=== PATIENT | male | born 1960 | race Caucasian/White ===

== ENCOUNTER 2021-09-26 00:13 | Observation (INO) ==
--- NOTE | 2021-09-25 23:44 | ED Telehealth Note ---
Telehealth Telehealth Options: 2-way audio and video For the duration of the visit, provider was performing the assessment from: A different facility than the patient After establishing a telemedicine visit, patient was: Patient was verified with two unique identifiers and Gave permission to continue telehealth session Total Time Spent (minutes): 10 Impression & Plan Abdominal pain, Constipation The patient was offered outpatient treatment options to include magnesium citrate cleanout, enema, and MiraLAX. He notes his pain is pretty severe. I discussed with him the limitations of telehealth when evaluating abdominal pain. I advised him that to evaluate for obstruction, he would likely need CT imaging and labs. The patient states he will come to the emergency department for further evaluation. Note/Exam/Outcome Date of Service September 25, 2021 ED Telehealth Outcome Referred to ED for in person visit ED Visit Note This 60-year-old male patient with significant past medical history of IBS presents to the emergency department today via telehealth for evaluation of constipation. The patient reports some severe episodes of abdominal pain occurring every few minutes. He reports a sharp stabbing pain in the abdomen. The patient states he has not had a bowel movement since yesterday. He has also not passed gas. The patient has been able to tolerate p.o. foods and fluids throughout the day. He denies any fever. He has taken 3 doses of MiraLAX today without relief of his symptoms or having a bowel movement. He has not tried an enema. Patient denies any history of abdominal surgeries or bowel obstructions. General General: + awake, + alert and + ill appearing ENT ENT: + moist mucous membranes and + normal nose Respiratory Respiratory: + normal respiratory effort Muskuloskeletal Muskuloskeletal: + head normocephalic, atraumatic Neuro Neuro: + normal sensorium, + oriented x 3 and + speech normal Psych Psych: + appropriate, + normal mood and + normal affect Past Med/Surg History Medical History (Updated 09/26/21 @ 00:01 by Mercedez Josue PA-C) Irritable bowel syndrome Discharge Plan Visit Data Chief Complaint: Telehealth Stated Complaint: VERY INTENSE CONSTIPATION/ABD. PAIN ED Provider: [facility],ED ED Midlevel Provider: Mercedez Josue Discharge Problem: Abdominal pain, Constipation Patient Disposition: Still a Patient Discharge Instructions Activity Restrictions/Additional Instructions: Come to the ED for further evaluation of your symptoms in person Forms Stand Alone Forms: [facility] Referrals Referrals: Ne Salas [Primary Care Provider] - Discharge Problem: Abdominal pain Qualifiers: Abdominal location: generalized Qualified Code(s): R10.84 - Generalized abdominal pain Constipation Qualifiers: Constipation type: unspecified constipation type Qualified Code(s): K59.00 - Constipation, unspecified
--- NOTE | 2021-09-26 02:11 | Emergency Department Note ---
Impression & Plan Volvulus of sigmoid colon Admit to the [facility] hospitalist and to the OR with Dr. Yee ED Provider Note NAME: JACOB YEH Jr AGE: 60 SEX: M ARRIVES VIA: Walk-In INFORMANT: Patient and his ED PROVIDER(S): Chelsey Maciel DO CHIEF COMPLAINT: Abdominal pain PLAN: Disposition: Admit to the [facility] Condition: Stable MEDICAL DECISION MAKING: This is a 60-year-old male patient with a history of IBS who presents to the emergency department with intermittent abdominal pain and no bowel movement over the past 24 hours. The patient denies any nausea or vomiting but his episodes of abdominal pain are worsening. Obstruction series was concerning for a small bowel obstruction. The patient went on for CT scan of the abdomen/pelvis which confirmed a sigmoid volvulus. The patient will go to the OR with Dr. Yee for a definitive procedure. Triage Nursing notes reviewed and agree with them. Additional history obtained from who is at the bedside Prior medical records reviewed Vital Signs: reviewed and unremarkable Differential diagnosis: Small bowel obstruction, constipation, colitis, gastritis ER treatment provided: IV normal saline IV Zofran IV Dilaudid IV fentanyl Diagnostics interpreted by me: Cardiac Monitoring: Sinus bradycardia at 60 Laboratory studies: See below Imaging studies: Obstruction series: Multiple distended loops of large and small bowel with air-fluid levels concerning for a small bowel obstruction as per my interpretation As per stat rad CT abdomen pelvis with contrast: Findings compatible with sigmoid volvulus (collapsed distal rectosigmoid colon, oral sign and twisting of vessels and sigmoid colon more superiorly in the mid abdomen, image [id number] series 2, significant dilatation of more proximal sigmoid loop with air-fluid level). No evidence of bowel perforation. No signs of bowel ischemia such as pneumatosis intestinalis or portal venous gas. Stable partially exophytic splenic lesion measuring 3.5 cm transversely. Consultation(s): Dr. Yee-he will evaluate the patient for sigmoid volvulus HPI: 60/M arrives for evaluation of abdominal pain. Patient has had increasing abdominal pain over the past 36-48 hours. The patient wonders if he is constipated. The patient describes a history of previous episodes of constipation then diarrhea with his IBS. Patient states that when he does have episodes of abdominal pain they are quite intense. ROS: See above HPI for pertinent positives & negatives. A total of 10 systems reviewed and were otherwise negative. PAST MEDICAL HISTORY:See Below PAST SURGICAL HISTORY:See Below FAMILY HISTORY:See Below SOCIAL HISTORY:See Below HOME MEDICATIONS:See list ALLERGIES:None VITALS:See Below PHYSICAL EXAMINATION: HEENT: Head - normocephalic and atraumatic Pupils are equal, round, and reactive to light. Extraocular eye muscles are intact, and sclera are anicteric. Nose - moist nasal mucosa without discharge. Mouth - moist buccal mucosa. Oropharynx is nonerythematous and there is no tonsillar exudate or edema noted. Neck: Supple; no cervical lymphadenopathy or nuchal rigidity Heart: Regular rate and rhythm. There is a normal S1 and S2 with no murmurs, clicks, or gallops appreciated. Lungs: Clear to auscultation bilaterally with no wheezes, rales, or rhonchi. Abdomen: Soft, moderate tenderness to palpation in the mid abdomen and left lower quadrant. There are no palpable pulsatile masses or hepatosplenomegaly. There is no guarding, rigidity, or rebound noted. Extremities: No evidence of cyanosis, clubbing, or edema. There are easily palpable peripheral pulses. Skin: warm and dry with good turgor and no rashes. ED COURSE: Times/Reassessments: 0145: The patient was evaluated in room a 12. A complete history and physical was performed. An IV lock was initiated and labs are drawn as above. An order was placed for continuous cardiac monitoring. The patient was in a sinus bradycardia at a rate of 59. Patient was treated with IV normal saline solution, IV Dilaudid and IV Zofran. He had an obstruction series performed which was concerning for a bowel obstruct ion. He continued to complain of pain was given IV fentanyl. He then went on for a CT scan of the abdomen/pelvis. This revealed evidence of an acute sigmoid volvulus. Patient was placed on IV saline drip and I discussed the case with Dr. Yee. A Covid test was performed. I then discussed the case with Dr. Tripathi. Chelsey Maciel DO Past Med/Surg History Medical History Irritable bowel syndrome Social History Smoking Status: Never smoker Hx Alcohol Use: Yes Alcohol type: beer Hx Substance Use: No Preferred Language: Belarusian Communication Ability: Effective Educational Director Required: No Beliefs That Will Affect Care: None Current Living Situation: Spouse Feels Safe at Home: Yes Assistive Devices: None Allergies Allergies Allergy/AdvReac Type Severity Reaction Status Date / Time No Known Drug Allergies Allergy . Verified 09/27/21 00:27 Home Meds Home Medications Medication Instructions Recorded Confirmed polyethylene glycol 3350 17 17 g PO DAILY 09/26/21 09/26/21 gram/dose oral powder (Miralax) Results & Data (ED) Vital Signs Vital Signs - 24 hr 09/26/21 00:28 09/26/21 03:09 09/26/21 04:59 Temperature 36.6 C Temperature Source Temporal Artery Scan Pulse Rate 59 L Pulse Rate [Left Radial] 48 L 53 L Pulse Strength [Left Radial] Normal Normal Respiratory Rate 20 16 17 Respiratory Effort / Characteristics Non-Labored Non-Labored Respiratory Depth Normal Normal Respiratory Pattern Regular Regular Blood Pressure 143/66 H Blood Pressure [Right Arm] 133/76 138/78 Blood Pressure Mean 91 Blood Pressure Mean [Right Arm] 95 98 Blood Pressure Position [Right Arm] Lying Lying Pulse Oximetry 99 96 99 Oxygen Delivery Method Room Air Room Air Room Air Sepsis Recent Fever Within 48 Hours No Sepsis New/Unexplained Change in Mental Status N/A Sepsis Action Taken by Nursing No Action Required 09/26/21 06:00 Temperature Temperature Source Pulse Rate Pulse Rate [Left Radial] Pulse Strength [Left Radial] Respiratory Rate 50 H Respiratory Effort / Characteristics Non-Labored Respiratory Depth Normal Respiratory Pattern Regular Blood Pressure Blood Pressure [Right Arm] 151/90 H Blood Pressure Mean Blood Pressure Mean [Right Arm] 110 Blood Pressure Position [Right Arm] Lying Pulse Oximetry 99 Oxygen Delivery Method Room Air Sepsis Recent Fever Within 48 Hours Sepsis New/Unexplained Change in Mental Status Sepsis Action Taken by Nursing Laboratory Data Result diagrams: 09/27/21 06:06 09/26/21 02:07 Lab Results 09/26/21 09/26/21 09/26/21 Range/Units 02:07 02:07 02:48 WBC 8.53 (4.8-10.8) K/uL RBC 4.68 L (4.7-6.1) M/uL Hgb 15.4 (14.0-18.0) g/dL Hct 44.9 (42-52) % MCV 95.9 (80-100) fL MCH 32.9 (25-34) pg MCHC 34.3 (32-36) g/dL RDW Std Deviation 45.6 (36.4-46.3) fL RDW Coeff of Jeffery 13.1 (11.5-14.5) % Plt Count 217 (130-400) K/uL MPV 11.0 H (7.4-10.4) fL Immature Gran % (Auto) 0.2 % Neut % (Auto) 80.2 % Lymph % (Auto) 10.8 % [place] % (Auto) 8.2 % Eos % (Auto) 0.4 % Baso % (Auto) 0.2 % Neut # (Auto) 6.84 H (1.4-6.5) K/uL Lymph # (Auto) 0.92 L (1.2-3.4) K/uL [place] # (Auto) 0.70 H (0.11-0.59) K/uL Eos # (Auto) 0.03 (0-0.5) K/uL Baso # (Auto) 0.02 (0-0.2) K/uL Immature Gran # (Auto) 0.02 (0.00-0.02) K/uL Sodium 132 L (136-145) mmol/L Potassium 4.1 (3.5-5.1) mmol/L Chloride 101 (98-107) mmol/L Carbon Dioxide 26 (21-32) mmol/L Anion Gap 5.0 (3-11) BUN 16 (7-18) mg/dl Creatinine 0.90 (0.6-1.4) mg/dl Est Cr Clr Drug Dosing 82.5 ml/min Est GFR ( Amer) 108.0 ml/min Est GFR (Non-Af Amer) 93.2 ml/min BUN/Creatinine Ratio 17.3 (10-20) Glucose 114 H (70-99) mg/dl Calcium 9.3 (8.5-10.1) mg/dl Total Bilirubin 2.1 H (0.2-1) mg/dl AST 34 (15-37) U/L ALT 31 (12-78) U/L Alkaline Phosphatase 55 (45-117) U/L Total Protein 7.6 (6.4-8.2) gm/dl Albumin 4.0 (3.4-5.0) gm/dl Globulin 3.6 (2.5-4.0) gm/dl Albumin/Globulin Ratio 1.1 (0.9-2) Lipase 162 (73-393) U/L Urine Color Dark Yellow Urine Appearance Clear (Clear) Urine pH 5.5 (4.5-7.5) Ur Specific [place] 1.027 (1.000-1.030) Urine Protein Trace H (Negative) Urine Glucose (UA) Negative (Negative) Urine Ketones 2+ H (Negative) Urine Blood Negative (Negative) Urine Nitrite Negative (Negative) Urine Bilirubin Negative (Negative) Urine Urobilinogen Negative (Negative) Ur Leukocyte Esterase Negative (Negative) Urine WBC (Auto) 1-5 (0-5) /hpf Urine RBC (Auto) 0-4 (0-4) /hpf U Hyaline Cast (Auto) 1-5 (0-5) /lpf U Epithel Cells (Auto) 5-10 H (0-5) /lpf Urine Bacteria (Auto) Negative (Negative) SARS-CoV-2, RNA, NAAT (NEGATIVE) 09/26/21 Range/Units 05:57 WBC (4.8-10.8) K/uL RBC (4.7-6.1) M/uL Hgb (14.0-18.0) g/dL Hct (42-52) % MCV (80-100) fL MCH (25-34) pg MCHC (32-36) g/dL RDW Std Deviation (36.4-46.3) fL RDW Coeff of Jeffery (11.5-14.5) % Plt Count (130-400) K/uL MPV (7.4-10.4) fL Immature Gran % (Auto) % Neut % (Auto) % Lymph % (Auto) % [place] % (Auto) % Eos % (Auto) % Baso % (Auto) % Neut # (Auto) (1.4-6.5) K/uL Lymph # (Auto) (1.2-3.4) K/uL [place] # (Auto) (0.11-0.59) K/uL Eos # (Auto) (0-0.5) K/uL Baso # (Auto) (0-0.2) K/uL Immature Gran # (Auto) (0.00-0.02) K/uL Sodium (136-145) mmol/L Potassium (3.5-5.1) mmol/L Chloride (98-107) mmol/L Carbon Dioxide (21-32) mmol/L Anion Gap (3-11) BUN (7-18) mg/dl Creatinine (0.6-1.4) mg/dl Est Cr Clr Drug Dosing ml/min Est GFR ( Amer) ml/min Est GFR (Non-Af Amer) ml/min BUN/Creatinine Ratio (10-20) Glucose (70-99) mg/dl Calcium (8.5-10.1) mg/dl Total Bilirubin (0.2-1) mg/dl AST (15-37) U/L ALT (12-78) U/L Alkaline Phosphatase (45-117) U/L Total Protein (6.4-8.2) gm/dl Albumin (3.4-5.0) gm/dl Globulin (2.5-4.0) gm/dl Albumin/Globulin Ratio (0.9-2) Lipase (73-393) U/L Urine Color Urine Appearance (Clear) Urine pH (4.5-7.5) Ur Specific [place] (1.000-1.030) Urine Protein (Negative) Urine Glucose (UA) (Negative) Urine Ketones (Negative) Urine Blood (Negative) Urine Nitrite (Negative) Urine Bilirubin (Negative) Urine Urobilinogen (Negative) Ur Leukocyte Esterase (Negative) Urine WBC (Auto) (0-5) /hpf Urine RBC (Auto) (0-4) /hpf U Hyaline Cast (Auto) (0-5) /lpf U Epithel Cells (Auto) (0-5) /lpf Urine Bacteria (Auto) (Negative) SARS-CoV-2, RNA, NAAT NEGATIVE (NEGATIVE) Administered Medications Sodium Chloride (Nss) 500 mls @ 125 mls/hr IV .Q4H KATIA Stop: 10/26/21 05:59 Last Infusion: 09/27/21 01:11 Dose: 0 mls/hr Documented by: [id number] Admin: 09/26/21 21:11 Dose: 125 mls/hr Documented by: [id number] Infusion: 09/26/21 17:27 Dose: 125 mls/hr Documented by: [id number] Admin: 09/26/21 15:49 Dose: Not Given Documented by: [id number] Admin: 09/26/21 13:27 Dose: 125 mls/hr Documented by: [id number] Infusion: 09/26/21 12:18 Dose: 0 mls/hr Documented by: [id number] Admin: 09/26/21 06:08 Dose: 125 mls/hr Documented by: [id number] Famotidine 20 mg/ Syringe 5 mls @ 2.5 mls/min IV Q12H KATIA Stop: 10/26/21 08:59 Last Admin: 09/26/21 21:05 Dose: 2.5 mls/min Documented by: [id number] Admin: 09/26/21 13:27 Dose: 2.5 mls/min Documented by: [id number] Acetaminophen (Ofirmev) 1,000 mg in 100 mls @ 400 mls/hr IV Q8H PRN PRN Reason: Pain or Fever Stop: 09/29/21 08:56 Last Infusion: 09/27/21 00:51 Dose: 0 mls/hr Documented by: [id number] Admin: 09/27/21 00:31 Dose: 400 mls/hr Documented by: [id number] Piperacillin Sod/Tazobactam (Sod 3.375 gm/ Dextrose) 115 mls @ 28.75 mls/hr IV Q8H KATIA; Protocol Stop: 10/06/21 17:59 Last Admin: 09/27/21 03:07 Dose: 28.8 mls/hr Documented by: [id number] Infusion: 09/26/21 22:33 Dose: 0 mls/hr Documented by: [id number] Admin: 09/26/21 18:21 Dose: 28.8 mls/hr Documented by: [id number] Phenol (Chloraseptic 1.4% Soln 180 Ml Btl) 2 sprays MT BID PRN PRN Reason: throat pain Stop: 10/27/21 00:24 Last Admin: 09/27/21 03:07 Dose: 2 sprays Documented by: [id number] Discontinued Medications Famotidine (Famotidine 20mg/5ml Iv Push) Confirm Administered Dose 20 mg IV .STK-MED ONE Stop: 09/26/21 08:38 Last Admin: 09/26/21 08:38 Dose: 20 mg Documented by: [id number] Famotidine (Famotidine 20mg/5ml Iv Push) Confirm Administered Dose 20 mg IV .STK-MED ONE Stop: 09/26/21 12:50 Last Admin: 09/26/21 13:28 Dose: Not Given Documented by: [id number] Fentanyl Citrate (Fentanyl Citrate 100 Mcg/2 Ml Vial) 75 mcg IV NOW STA Stop: 09/26/21 05:57 Last Admin: 09/26/21 06:08 Dose: 75 mcg Documented by: [id number] Hydromorphone HCl (Hydromorphone Inj 0.5 Mg/0.5 Ml Syr) 0.5 mg IV NOW STA Stop: 09/26/21 03:27 Last Admin: 09/26/21 03:44 Dose: 0.5 mg Documented by: [id number] Hydromorphone HCl (Hydromorphone Inj 0.5 Mg/0.5 Ml Syr) 0.5 mg IV NOW STA Stop: 09/26/21 04:52 Last Admin: 09/26/21 04:56 Dose: 0.5 mg Documented by: [id number] Sodium Chloride (Nss 1000ml) 1,000 mls @ 999 mls/hr IV .Q1H1M ONE Stop: 09/26/21 05:19 Last Infusion: 09/26/21 05:31 Dose: 0 mls/hr Documented by: [id number] Admin: 09/26/21 04:22 Dose: 999 mls/hr Documented by: [id number] Piperacillin Sod/Tazobactam (Sod 4.5 gm/ Dextrose) 120 mls @ 230 mls/hr IV ONE ONE; Protocol Stop: 09/26/21 09:46 Last Infusion: 09/26/21 13:04 Dose: 0 mls/hr Documented by: [id number] Admin: 09/26/21 12:15 Dose: 230 mls/hr Documented by: [id number] Ioversol (Optiray 320 100ml) 97 ml IV ONCE ONE Stop: 09/26/21 03:46 Last Admin: 09/26/21 03:46 Dose: 97 ml Documented by: [id number] Mineral Oil (Mineral Oil 30 Ml Udc) Confirm Administered Dose 30 ml .ROUTE .STK- MED ONE Stop: 09/26/21 09:18 Last Admin: 09/26/21 11:41 Dose: Not Given Documented by: [id number] Morphine Sulfate (Morphine Sulfate 2 Mg/Ml Carp) Confirm Administered Dose 2 mg .ROUTE .STK-MED ONE Stop: 09/26/21 08:37 Last Admin: 09/26/21 08:38 Dose: 2 mg Documented by: [id number] Ondansetron HCl (Ondansetron Inj 2 Mg/Ml 2 Ml Vial) 4 mg IV NOW STA Stop: 09/26/21 03:27 Last Admin: 09/26/21 03:44 Dose: 4 mg Documented by: [id number] Discharge Plan Visit Data Chief Complaint: Constipation Stated Complaint: VERY INTENSE CONSTIPATION/ABD. PAIN ED Provider: Chelsey Maciel Discharge Problem: Volvulus of sigmoid colon Patient Disposition: Admitted As Inpatient Discharge Instructions Interventions: ED Discharge Assessment Last Done: 09/26/21 08:54
[2021-09-26 02:15] LABS: Basophils # (auto) 0.02 K/uL (0-0.2); Basophils % (auto) 0.2 %; Eosinophils # (auto) 0.03 K/uL (0-0.5); Eosinophils % (auto) 0.4 %; Hematocrit (blood only) 44.9 % (42-52); Hemoglobin 15.4 g/dL (14.0-18.0); Immature Granulocytes # (auto) 0.02 K/uL (0.00-0.02); Immature Granulocytes % (auto) 0.2 %; Lymphocytes # (auto) 0.92 K/uL (1.2-3.4); Lymphocytes % (auto) 10.8 %; Mean Corpuscular Hemoglobin 32.9 pg (25-34); Mean Corpuscular Hgb Conc 34.3 g/dL (32-36); Mean Corpuscular Volume 95.9 fL (80-100); Monocytes % (auto) 8.2 %; Neutrophils # (auto) 6.84 K/uL (1.4-6.5); Neutrophils % (auto) 80.2 %; Platelet Count 217 K/uL (130-400); RDW Coefficient of Variation 13.1 % (11.5-14.5); RDW Standard Deviation 45.6 fL (36.4-46.3); Red Blood Count 4.68 M/uL (4.7-6.1); White Blood Count 8.53 K/uL (4.8-10.8)
[2021-09-26 02:37] LABS: BUN Creatinine Ratio 17.3 (10-20); Calcium 9.3 mg/dl (8.5-10.1); Creatinine Clr Calc Pharmacy 82.5 ml/min; Est GFR (Non-African American) 93.2 ml/min; Potassium 4.1 mmol/L (3.5-5.1)
[2021-09-26 02:39] LABS: Albumin Globulin Ratio 1.1 (0.9-2); Bilirubin,Total 2.1 mg/dl (0.2-1); Globulin 3.6 gm/dl (2.5-4.0); Total Protein 7.6 gm/dl (6.4-8.2)
[2021-09-26 03:13] LABS: Appearance Urine Clear (Clear); Bacteria Urine Automated Negative (Negative); Bilirubin Urine Negative (Negative); Blood Urine Negative (Negative); Color Urine Dark Yellow; Glucose Urine UA Negative (Negative); Ketones Urine 2+ (Negative); Leukocyte Esterase Urine Negative (Negative); Nitrite Urine Negative (Negative); Protein Urine Trace (Negative); RBC Urine Automated 0-4 /hpf (0-4); Specific Gravity Urine 1.027 (1.000-1.030); Urobilinogen Urine Negative (Negative); pH Urine 5.5 (4.5-7.5)
[2021-09-26] MEDS ORDERED: ONDANSETRON INJ 2 MG/ML 2 ML VIAL IV STA (03:26)
[2021-09-26] MEDS ORDERED: HYDROmorphone INJ 0.5 MG/0.5 ML SYR IV STA ×2 (03:26→04:51)
[2021-09-26] MEDS ORDERED: OPTIRAY 320 100ml IV ONE (03:45)
[2021-09-26] MEDS ORDERED: SODIUM CHLORIDE 0.9% 1000ML 1,000 ML IV ONE (04:19)
[2021-09-26] MEDS ORDERED: fentaNYL citrate 100 MCG/2 ML VIAL IV STA (05:56)
[2021-09-26] MEDS: SODIUM CHLORIDE 0.9% 500 ML IV SCH ×4 (06:08→21:11)
--- NOTE | 2021-09-26 06:43 | History & Physical Report ---
Date of Service September 26, 2021 Assessment & Plan (1) Sigmoid volvulus: Plan: Sigmoid volvulus/severe abdominal pain- NPO Patient is being taken to the OR by gastroenterology Dr. Yee for decompression/detorsion Patient will be admitted to monitored bed post procedure Continue NSS at 125 mils per hour Zosyn 4.5 g IV every 8 hours Famotidine 20 mg IV every 12 hours Zofran 4 mg IV every 6 hours as needed Acetaminophen 1 g IV every 8 hours as needed mild pain or fever Morphine sulfate 2 mg IV every 3 hours as needed severe pain (2) Abdominal pain: Plan: See above History of Present Illness Chief Complaint: The patient presents to the emergency department with severe abdominal pain and nausea without vomiting, with no bowel movement over the past 24 hours Primary Care Provider: Ne Salas The patient is a 60-year-old male with no significant past medical history, who presents with symptoms as noted above. CT scan of abdomen pelvis: Sigmoid volvulus, no evidence of bowel perforation, bowel ischemia such as pneumatosis intestinalis, or portal venous gas Abnormal laboratories: Sodium 132, glucose 114, total bilirubin 2.1 Allergies Allergy/AdvReac Type Severity Reaction Status Date / Time SEASONAL Allergy Intermediate ITCHY Uncoded 09/26/21 02:10 EYES, SNEEZING, CONGESTION Home Medications Medication Instructions Recorded Confirmed Type polyethylene glycol 3350 17 17 g PO DAILY 09/26/21 09/26/21 History gram/dose oral powder (Miralax) Past Med/Surg History Medical History (Updated 09/26/21 @ 06:41 by Joe Armstrong MD) Irritable bowel syndrome Social History Smoking Status: Never smoker Feels Safe at Home: Yes Review of Systems Review of Systems: The patient denies chest pain, palpitations, shortness of breath, dyspnea on exertion, cough, lower extremity swelling, sore throat, fevers, chills, sweats, blood in urine or stool, dysuria, urinary frequency or urgency, lightheadedness, dizziness, headache, memory loss, loss of consciousness, rash, abnormal bruising or bleeding, imbalance, focal or generalized weakness, numbness or tingling in arms or legs, generalized arthralgias or myalgias, neck pain, or night sweats. The review of systems is otherwise negative other than for that already noted above, and at least 10 systems have been reviewed. Physical Exam Physical Exam: The patient is awake, alert and oriented 3, well developed and well nourished, normocephalic and atraumatic, lying in bed and in no acute distress after administration of IV pain medications HEENT--PERRL, EOMI, mucous membranes and oropharynx mildly dry. Neck--supple. No JVD. No bruits. Thyroid normal, trachea midline, no adenopathy. Heart--normal S1 and S2. No murmurs, rubs or gallops. Lungs--clear bilaterally, no respiratory distress, no accessory muscle use. Abdomen--decreased bowel sounds. Mildly firm. Nontender post IV pain medications. Mildly distended. Extremities--no cyanosis or clubbing. No edema. Dermatologic--normal skin turgor, normal color, no abnormal lymph nodes, no rash. Neurologic--cranial nerves II through XII grossly intact. Rheumatologic--normal range of motion. Psychiatric--normal affect. Results & Data Results & Data ([facility]) Vital Signs (Past 12 Hours) Vital Signs Temp Pulse Pulse Resp BP BP Pulse Ox 09/26/21 06:00 50 H 151/90 H 99 09/26/21 04:59 53 L 17 138/78 99 09/26/21 03:09 48 L 16 133/76 96 09/26/21 00:28 97.9 F 59 L 20 143/66 H 99 Laboratory Results Laboratory Results WBC 8.53 K/uL (4.8-10.8) 09/26/21 02:07 RBC 4.68 M/uL (4.7-6.1) L 09/26/21 02:07 Hgb 15.4 g/dL (14.0-18.0) 09/26/21 02:07 Hct 44.9 % (42-52) 09/26/21 02:07 MCV 95.9 fL (80-100) 09/26/21 02:07 MCH 32.9 pg (25-34) 09/26/21 02:07 MCHC 34.3 g/dL (32-36) 09/26/21 02:07 RDW Std Deviation 45.6 fL (36.4-46.3) 09/26/21 02:07 RDW Coeff of Jeffery 13.1 % (11.5-14.5) 09/26/21 02:07 Plt Count 217 K/uL (130-400) 09/26/21 02:07 MPV 11.0 fL (7.4-10.4) H 09/26/21 02:07 Immature Gran % (Auto) 0.2 % 09/26/21 02:07 Neut % (Auto) 80.2 % 09/26/21 02:07 Lymph % (Auto) 10.8 % 09/26/21 02:07 [place] % (Auto) 8.2 % 09/26/21 02:07 Eos % (Auto) 0.4 % 09/26/21 02:07 Baso % (Auto) 0.2 % 09/26/21 02:07 Neut # (Auto) 6.84 K/uL (1.4-6.5) H 09/26/21 02:07 Lymph # (Auto) 0.92 K/uL (1.2-3.4) L 09/26/21 02:07 [place] # (Auto) 0.70 K/uL (0.11-0.59) H 09/26/21 02:07 Eos # (Auto) 0.03 K/uL (0-0.5) 09/26/21 02:07 Baso # (Auto) 0.02 K/uL (0-0.2) 09/26/21 02:07 Immature Gran # (Auto) 0.02 K/uL (0.00-0.02) 09/26/21 02:07 Sodium 132 mmol/L (136-145) L 09/26/21 02:07 Potassium 4.1 mmol/L (3.5-5.1) 09/26/21 02:07 Chloride 101 mmol/L (98-107) 09/26/21 02:07 Carbon Dioxide 26 mmol/L (21-32) 09/26/21 02:07 Anion Gap 5.0 (3-11) 09/26/21 02:07 BUN 16 mg/dl (7-18) 09/26/21 02:07 Creatinine 0.90 mg/dl (0.6-1.4) 09/26/21 02:07 Est Cr Clr Drug Dosing 82.5 ml/min 09/26/21 02:07 Est GFR ( Amer) 108.0 ml/min 09/26/21 02:07 Est GFR (Non-Af Amer) 93.2 ml/min 09/26/21 02:07 BUN/Creatinine Ratio 17.3 (10-20) 09/26/21 02:07 Glucose 114 mg/dl (70-99) H 09/26/21 02:07 Calcium 9.3 mg/dl (8.5-10.1) 09/26/21 02:07 Total Bilirubin 2.1 mg/dl (0.2-1) H 09/26/21 02:07 AST 34 U/L (15-37) 09/26/21 02:07 ALT 31 U/L (12-78) 09/26/21 02:07 Alkaline Phosphatase 55 U/L (45-117) 09/26/21 02:07 Total Protein 7.6 gm/dl (6.4-8.2) 09/26/21 02:07 Albumin 4.0 gm/dl (3.4-5.0) 09/26/21 02:07 Globulin 3.6 gm/dl (2.5-4.0) 09/26/21 02:07 Albumin/Globulin Ratio 1.1 (0.9-2) 09/26/21 02:07 Lipase 162 U/L (73-393) 09/26/21 02:07 Urine Color Dark Yellow 09/26/21 02:48 Urine Appearance Clear (Clear) 09/26/21 02:48 Urine pH 5.5 (4.5-7.5) 09/26/21 02:48 Ur Specific [place] 1.027 (1.000-1.030) 09/26/21 02:48 Urine Protein Trace (Negative) H 09/26/21 02:48 Urine Glucose (UA) Negative (Negative) 09/26/21 02:48 Urine Ketones 2+ (Negative) H 09/26/21 02:48 Urine Blood Negative (Negative) 09/26/21 02:48 Urine Nitrite Negative (Negative) 09/26/21 02:48 Urine Bilirubin Negative (Negative) 09/26/21 02:48 Urine Urobilinogen Negative (Negative) 09/26/21 02:48 Ur Leukocyte Esterase Negative (Negative) 09/26/21 02:48 Urine WBC (Auto) 1-5 /hpf (0-5) 09/26/21 02:48 Urine RBC (Auto) 0-4 /hpf (0-4) 09/26/21 02:48 U Hyaline Cast (Auto) 1-5 /lpf (0-5) 09/26/21 02:48 U Epithel Cells (Auto) 5-10 /lpf (0-5) H 09/26/21 02:48 Urine Bacteria (Auto) Negative (Negative) 09/26/21 02:48 Diagnostic Findings [facility] Patient: JACOB YEH JR (Male) : 62 Status: ER Date: 09/26/21 03:58 Room #: History: PT. REPORTS ABDOMINAL PAIN, FEELS VERY FULL, ABDOMINAL DISTENSION APPENDIX PRESENT OPTI 320 [id number] CC Slices: [phone] Priors: Tech: Shanique Ballard @ [phone] Exams: CT ABDOMEN & PELVIS With Contrast Contrast: IV Amt: OPTIRAY 320 [id number] CC Accession Numbers: [id number] Referring Physician: REFERRED SELF Preliminary Findings Only See Final Report For Complete Findings CT ABDOMEN & PELVIS With Contrast: Findings compatible with sigmoid volvulus (collapsed distal rectosigmoid colon, whirl sign and twisting of vessels and sigmoid colon more superiorly in mid abdomen, image [id number] series 2, significant dilatation of more proximal sigmoid loop with air-fluid level). No evidence of bowel perforation. No signs of bowel ischemia such as pneumatosis intestinalis or portal venous gas. Stable partially exophytic splenic lesion measuring 3.5 cm transversely. Radiologist: Marcy Shukla M.D. Study ready at 04:08 and initial results transmitted at 05:36 Communications: Clear Time Type Notes 09/26/21 05:39 Call Doctor Regarding Vol vulus, called Dr. Maciel on 09/26 05:38 (-05:00) *This report constitutes a preliminary interpretation only. Non-acute findin gs felt to be unrelated to the clinical presentation may not be discussed in this report. The study will be interpreted and a final report will be generated by the local Radiologist the following shift. To reach the [facility] radiology department call [phone]. If a discrepancy is found between the preliminary and final interpretations of this study, please notify us via our Client Portal at [email or web address], under QA [email or web address]. You can also fax this report with a description of the discrepancy, or include the final report, to our daytime fax number [phone]. If faxing, please indicate the severity of discrepancy using one of the following categories: [ ] 1 - Agree/Informational [ ] 2 - Unlikely to Affect Management [ ] 3 - Possible Eventual Change of Management [ ] 4 - Probable Immediate Change of Management For all other patient related information, please fax us at [phone]. [id number] Code Status & VTE Plan Code Status Full code VTE Prophylaxis Plan VTE Prophylaxis will be ordered: Yes PG Care Time/CCT Total # of Minutes Spent Total Time Spent with Patient: Total time spent is greater than 50% in coordination of care (as documented) at patient's floor/unit and/or counseling patient: Coding Level of Care Code INT OBSERVATION CARE 70M LVL 3 Diagnoses Sigmoid volvulus K56.2 Abdominal pain R10.84 Abdominal location: generalized (1) Abdominal pain Abdominal location: generalized Qualified Code(s): R10.84 - Generalized abdominal pain
--- NOTE | 2021-09-26 07:58 | Anesthesiology Consultation ---
Date of Service September 26, 2021 Assessment & Plan (1) Encounter for pre-operative examination: Chart Review Chart Review: Acceptable Risk for Surgery and Patient NOT seen in Pre Admission Testing Consults Requested none History Surgery Operation Date: 09/26/21 09:00 Proposed Procedures p Colonoscopy - Franck Yee MD Height/Weight Height: 5 ft 9 in Weight: 66 kg Allergies Allergy/AdvReac Type Severity Reaction Status Date / Time SEASONAL Allergy Intermediate ITCHY Uncoded 09/26/21 02:10 EYES, SNEEZING, CONGESTION Medications Home Medications Medication Instructions Recorded Confirmed Last Taken polyethylene glycol 3350 17 17 g PO DAILY 09/26/21 09/26/21 09/25/21 gram/dose oral powder (Miralax) Active Medications Generic Name Dose Route Start Last Admin Trade Name Freq PRN Reason Stop Dose Admin Sodium Chloride 500 mls @ 125 mls/hr 09/26/21 06:00 09/26/21 06:08 Nss IV 10/26/21 05:59 125 mls/hr .Q4H KATIA Administration Past Medical History Medical History Irritable bowel syndrome Social History Smoking Status: Never smoker Physical Exam Vital Signs Last Vital Signs Temp 97.9 F 09/26/21 00:28 Pulse 53 L 09/26/21 04:59 Resp 50 H 09/26/21 06:00 BP 151/90 H 09/26/21 06:00 Pulse Ox 99 09/26/21 06:00 Testing Laboratory Results 09/26/21 02:07 09/26/21 02:07 Urine Color Dark Yellow 09/26/21 02:48 Urine Appearance Clear (Clear) 09/26/21 02:48 Urine pH 5.5 (4.5-7.5) 09/26/21 02:48 Ur Specific [place] 1.027 (1.000-1.030) 09/26/21 02:48 Urine Protein Trace (Negative) H 09/26/21 02:48 Urine Glucose (UA) Negative (Negative) 09/26/21 02:48 Urine Ketones 2+ (Negative) H 09/26/21 02:48 Urine Nitrite Negative (Negative) 09/26/21 02:48 Ur Leukocyte Esterase Negative (Negative) 09/26/21 02:48 Urine WBC (Auto) 1-5 /hpf (0-5) 09/26/21 02:48 Urine RBC (Auto) 0-4 /hpf (0-4) 09/26/21 02:48 U Hyaline Cast (Auto) 1-5 /lpf (0-5) 09/26/21 02:48 U Epithel Cells (Auto) 5-10 /lpf (0-5) H 09/26/21 02:48 Urine Bacteria (Auto) Negative (Negative) 09/26/21 02:48
[2021-09-26] MEDS ORDERED: MoRPHine SULFATE 2 MG/ML CARP ONE (08:36)
[2021-09-26] MEDS ORDERED: FAMOTIDINE 20MG/5ML IV PUSH IV ONE ×2 (08:37→12:49)
--- NOTE | 2021-09-26 08:45 | XRay Report ---
XR abdomen 2V w PA chest CLINICAL HISTORY: eval for sbo vs. constipation TECHNIQUE: 2 views of the abdomen were obtained. A single view of the chest was obtained. Comparison: None available at the time of this dictation. FINDINGS: No lines and tubes are seen. The cardiomediastinal silhouette is normal. The lungs are clear. No evid ence of pleural effusion or pneumothorax. The osseous structures are grossly unremarkable. Multiple gas-distended loops of large and small angel l are seen. A moderate amount of stool is noted within the large bowel. IMPRESSION: Multiple gas-distended loops of large and small bowel are seen compatible with small bowel obstructio n. ACT 112: Negative or not required by law. Electronically signed by: Giucho Theodore M.D. 09/26/2021 8:44 AM
--- NOTE | 2021-09-26 08:52 | Gastrointestinal Consultation ---
Date of Consultation September 26, 2021 Assessment & Plan (1) Sigmoid volvulus: (2) Constipation: sigmoid volvulus first episode recs: --NPO --colonoscopy with decompression now --admit to medicine --supportive care Thank you for allowing me to participate in the care of this patient History of Present Illness History of Present Illness 60 yo male who presented with severe abdominal pains and nausea. CT A/P shows sigmoid volvulus. He has a hx constipation, with moderate-severe fecal retention on previous CT in November. He has not had a bowel movement in the last day. No prior volvulus. labs reviewed. Allergies Allergy/AdvReac Type Severity Reaction Status Date / Time SEASONAL Allergy Intermediate ITCHY Uncoded 09/26/21 02:10 EYES, SNEEZING, CONGESTION Home Medications Medication Instructions Recorded Confirmed Type polyethylene glycol 3350 17 17 g PO DAILY 09/26/21 09/26/21 History gram/dose oral powder (Miralax) Patient History Medical History Irritable bowel syndrome Social History Smoking Status: Never smoker Feels Safe at Home: Yes Review of Systems Constitutional: no fever, no chills and no weight loss Eyes: as per Subjective / HPI Ear, Nose, Mouth, Throat: as per Subjective / HPI Respiratory: no dyspnea and no dyspnea on exertion Cardiovascular: no chest pain and no palpitations Gastrointestinal: as per Subjective / HPI Musculoskeletal: no joint pain and no swelling Integumentary: no rash and no lesions Neurologic: no numbness and no paresthesia Psychiatric: no depression and no anxiety Endocrine: no fatigue Hematologic / Lymphatic: no easy bleeding and no easy bruising Physical Exam Constitutional: WD/WN, vitals as above Eyes: EOM intact bilaterally Neck: normal visual inspection Respiratory: normal respiratory effort, lungs clear to auscultation Cardiovascular: RRR, no murmur, no edema Gastrointestinal (Abdomen): Inspection/Auscultation: abdomen normal to inspection; abdomen not distended Percussion/Palpation: abdomen soft; abdomen nontender and no hepatosplenomegaly Musculoskeletal: Extremities: no cyanosis Gait: normal gait Skin: no rashes, warm and dry Neurologic: moves all extremities Psychiatric: A+Ox3, euthymic affect Results & Data ([facility]) Vital Signs (Past 12 Hours) Vital Signs Temp Pulse Pulse Resp BP BP Pulse Ox 09/26/21 08:30 36.6 C 56 L 18 128/74 96 09/26/21 06:00 50 H 151/90 H 99 09/26/21 04:59 53 L 17 138/78 99 09/26/21 03:09 48 L 16 133/76 96 09/26/21 00:28 36.6 C 59 L 20 143/66 H 99 PG Care Time/CCT Total # of Minutes Spent Total Time Spent with Patient: Total time spent is greater than 50% in coordination of care (as documented) at patient's floor/unit and/or counseling patient: Coding Level of Care Code 85996 Inpt Consult Level 4 Diagnoses Sigmoid volvulus K56.2 Constipation K59.00 Constipation type: unspecified constipation type (1) Constipation Constipation type: unspecified constipation type Qualified Code(s): K59.00 - Constipation, unspecified
--- NOTE | 2021-09-26 08:52 | CT Scan Report ---
CT abd pelvis IV con only CLINICAL HISTORY: eval for sbo vs. volvulus TECHNIQUE: Helical axial images of the abdomen and pelvis were obtained and displayed. Automated dose lowering techniques and/or adjustment according to patient size were utilized for this exam. This e xam was performed with intravenous contrast. COMPARISON: Comparison is made to CT abdomen pelvis 11/20/2020 FINDINGS: Lower chest: No acute abnormality Liver: Unremarkable. No focal lesions are seen. Gallbladder and biliary tree: No calcified gallstones. Normal caliber wall. No intra- or extrahepatic biliary ductal dilation. Pancreas: Unremarkable, no focal lesions. Spleen: Stable appearance of splenic lesion which may represent hemangioma. Adrenals: Unremarkable. Kidneys and ureters: Unremarkable. Bladder: Unremarkable. Reproductive organs: Unremarkable. Bowel: There is twisting of the mesentery about the sigmoid colon. A vascular swirl is seen in the re gion of obstruction There is massive dilation of the distal colon and prominence of multiple distal s mall bowel loops. No evidence of perforation or ischemia. Lymph nodes Retroperitoneal: Unremarkable. Mesenteric: Unremarkable. Pelvic: Unremarkable. Peritoneum: Normal Vessels: Atherosclerotic calcifications are seen. Abdominal wall: Unremarkable. Bones: Unremarkable. IMPRESSION: 1. Findings are compatible with sigmoid volvulus. No evidence of perforation or ischemia. 2. Additional findings as above. ACT 112: Negative or not required by law. Electronically signed by: Guicho Theodore M.D. 09/26/2021 8:51 AM
[2021-09-26] MEDS ORDERED: SUCCINYLCHOLINE 100MG/5ML SYR IV ONE (08:55)
[2021-09-26] MEDS ORDERED: PROPOFOL IV EMULSION 10 MG/ML 20 ML VIAL IV ONE (08:55)
[2021-09-26] MEDS ORDERED: MIDAZOLAM HCL 1 MG/ML 2ML VIAL ONE (08:55)
[2021-09-26] MEDS ORDERED: fentaNYL citrate 100 MCG/2 ML VIAL ONE (08:55)
[2021-09-26] MEDS ORDERED: LIDOCAINE 2% 2 ML VIAL/AMP(20MG/ML) INFIL ONE (08:55)
[2021-09-26] MEDS ORDERED: PIPERACILL/TAZOBAC CONSULT ACTIVE PRN (08:57)
[2021-09-26] MEDS ORDERED: ACETAMINOPHEN 1,000 MG/100 ML VIAL IV PRN (08:57)
[2021-09-26] MEDS ORDERED: ONDANSETRON INJ 2 MG/ML 2 ML VIAL IV PRN (08:57)
[2021-09-26] MEDS ORDERED: MoRPHine SULFATE 2 MG/ML CARP IV PRN (09:07)
[2021-09-26] MEDS ORDERED: PROMETHAZINE HCL 6.25 MG in SODIUM CHLORIDE 0.9% 50 ML IV PRN (09:08)
[2021-09-26] MEDS ORDERED: ATROPINE SULFATE 0.1 MG/ML 10ML SYR IV PRN (09:08)
[2021-09-26] MEDS ORDERED: ePHEDrine sulfate 50 MG/ML AMP IV PRN (09:08)
[2021-09-26] MEDS ORDERED: PIPERACILLIN/TAZOBACTAM 4.5 GM in DEXTROSE 5% 100 ML IV ONE (09:15)
[2021-09-26] MEDS ORDERED: MINERAL OIL 30 ML UDC ONE (09:17)
[2021-09-26] MEDS ORDERED: ONDANSETRON INJ 2 MG/ML 2 ML VIAL ONE (09:33)
[2021-09-26] MEDS ORDERED: DEXAMETHASONE SOD INJ 4 MG/ML VIAL ONE (09:33)
[2021-09-26] MEDS ORDERED: ePHEDrine sulfate 50 MG/ML SYR ONE (09:35)
--- NOTE | 2021-09-26 10:03 | Procedure Note ---
Procedure Note Date of Service September 26, 2021 Note GI procedure note colonoscopy: sigmoid volvulus noted, decompressed; colonic tube inserted with the wire in the cecum recs: NPO keep tube in for 24 hours then remove KUB now to ensure volvulus has resolved supportive care, admit to medicine Franck Yee MD Gastroenterology Coding
--- NOTE | 2021-09-26 10:04 | Hospitalist Progress Note ---
Date of Service September 26, 2021 Assessment & Plan (1) Sigmoid volvulus: Plan: Patient presented acutely with 1st episode of sigmoid volvulus taken to the endoscopy suite for colonic decompression, is on antibiotics for concern for sterile coral colitis Mildly hyponatremic will be followed post procedure, GI medicine recommends KUB 09/28/21 and if vomiting to have NGT as there was some suggestion of air in small bowel Admission and Anticipated Discharge Date Admission Date: September 26, 2021 Subjective pt was seen post procedure was doing well with no abdominal pain and rectal tube in place, Review of Systems Review of Systems: Mild distress and fatigue no headache, no visual changes no speech or swallowing issues no chest pain, pressure or palpitations no shortness of breath, cough or wheezes no abdominal pain, nausea or vomiting, diarrhea or constipation no dysuria, hematuria or frequency no focal joint pain or swelling no back pain, CVA tenderness or radicular pain no bruising, bleeding or rashes no focal signs of weakness or numbness or altered sensation no complaints of anxiety or depression.. Physical Exam Physical Exam: The patient appeared well nourished and normally developed. Vital signs as documented. Head exam is normocephalic atraumatic Neck is without JVD, thyromegaly, or carotid bruits. Lungs are clear to auscultation, no focal loss of breath sounds Cardiac exam, Rhythm is regular.. No murmurs, rubs or gallops. Abdominal exam reveals hypoactive bowel sounds, soft non tender, no masses Extremities are nonedematous and both pedal pulses are present Neurologic exam is alert and oriented, no focal loss of strength or sensation Skin is without bruises or rashes Psychologically is without concerns for anxiety or depression.. Results & Data Results & Data ([facility]) Vital Signs (Past 12 Hours) Vital Signs Temp Pulse Pulse Resp BP BP Pulse Ox 09/26/21 08:30 97.9 F 56 L 18 128/74 96 09/26/21 06:00 50 H 151/90 H 99 09/26/21 04:59 53 L 17 138/78 99 09/26/21 03:09 48 L 16 133/76 96 09/26/21 00:28 97.9 F 59 L 20 143/66 H 99 PG Care Time/CCT Total # of Minutes Spent Total Time Spent with Patient: Total time spent is greater than 50% in coordination of care (as documented) at patient's floor/unit and/or counseling patient: Coding Level of Care Code None Diagnoses Sigmoid volvulus K56.2
--- NOTE | 2021-09-26 10:13 | GI REPORT ---
Patient Name: Gerald Del Cid Procedure Date: 09/26/2021 9:04 AM Date of : 1960 Admit Type: Inpatient Age: 60 Gender: Male Attending MD: Franck Yee MD Procedure: Colonoscopy Providers: Franck Yee MD Referring MD: Referred Self Indications: Volvulus Medicines: Monitored Anesthesia Care Complications: No immediate complications. Estimated blood loss: None. Estimated Blood Loss: Estimated blood loss: none. Procedure: Pre-Anesthesia Assessment: - Prior Anticoagulants: The patient has taken no previous anticoagulant or antiplatelet agents. - ASA Grade Assessment: II - A patient with mild systemic disease. After I obtained informed consent, the scope was passed under direct vision. Throughout the procedure, the patient's blood pressure, pulse, and oxygen saturations were monitored continuously. The Colonoscope was introduced through the anus and advanced to the cecum, identified by appendiceal orifice and ileocecal valve. The colonoscopy was performed without difficulty. The patient tolerated the procedure well. The quality of the bowel preparation was poor. Findings: A volvulus with viable appearing mucosa was found in the sigmoid colon. Decompression of the volvulus was attempted and was successful, with complete decompression achieved. Following the maneuver, a tube was placed to maintain the decompression. Estimated blood loss: none. Non-bleeding internal hemorrhoids were found. The hemorrhoids were small. Impression: - Preparation of the colon was poor. - Volvulus. Successful complete decompression achieved. - Non-bleeding internal hemorrhoids. - No specimens collected. Recommendation: - Admit the patient to hospital [facility] for ongoing care. - NPO -remove tube after 24 hours -KUB now to ensure volvulus resolving/resolved -supportive care Franck Yee MD 09/26/2021 10:13:23 AM This report has been signed electronically. Note Initiated On: 09/26/2021 9:04 AM Number of Addenda: 0 I attest to the content of the Intraoperative Record and orders documented therein, exceptions below {[id number]}
--- NOTE | 2021-09-26 10:28 | XRay Report ---
XR KUB/Abdomen 1 view CLINICAL HISTORY: volvulus s/p decompression and tube placement TECHNIQUE: 1 view of the abdomen was obtained. Comparison: None available at the time of this dictation. FINDINGS: Lung bases are unremarkable. The osseous structures are grossly unremarkable. Significant interval de crease in large bowel gas, with significant residual large and small bowel gaseous distention. A mode rate amount of stool is noted within the large bowel. IMPRESSION: Interval significant improvement in large bowel gas with however significant residual gas distended l oops of large and small bowel. ACT 112: Negative or not required by law. Electronically signed by: Guicho Theodore M.D. 09/26/2021 10:27 AM
--- NOTE | 2021-09-26 10:34 | Anesthesiology Progress Note ---
Date of Service September 26, 2021 Anesthesia Post Procedure Vital Signs Vital Signs: Temp Pulse Pulse Pulse Resp BP BP 09/26/21 10:04 97.3 F L 85 18 138/80 09/26/21 08:30 97.9 F 56 L 18 128/74 09/26/21 06:00 50 H 151/90 H 09/26/21 04:59 53 L 17 138/78 09/26/21 03:09 48 L 16 133/76 09/26/21 00:28 97.9 F 59 L 20 143/66 H Pulse Ox 09/26/21 10:04 100 09/26/21 08:30 96 09/26/21 06:00 99 09/26/21 04:59 99 09/26/21 03:09 96 09/26/21 00:28 99 Pain Intensity Abdomen: Pain Intensity: 2 Transfer of Care Handoff Completed per policy Notes Mental Status: alert / awake / arousable and participated in evaluation Patient Amnestic to Procedure: Yes Nausea / Vomiting: adequately controlled Pain: adequately controlled Airway Patency, RR, SpO2: stable & adequate BP & HR: stable & adequate Hydration State: stable & adequate Anesthetic Complications: no major complications apparent and Pt Satisfied with anesthetic care
[2021-09-26] MEDS: FAMOTIDINE 20 MG in SYRINGE 3 ML IV SCH ×2 (13:27→21:05)
[2021-09-26] MEDS ORDERED: PIPERACILLIN/TAZOBACTAM 4.5 GM in DEXTROSE 5% 100 ML IV SCH (18:00)
[2021-09-26] MEDS: PIPERACILLIN/TAZOBACTAM 3.375 GM in DEXTROSE 5% 100 ML IV SCH (18:21)
[2021-09-27] MEDS ORDERED: CHLORASEPTIC 1.4% SOLN 180 ML BTL MT PRN (00:25)
[2021-09-27] MEDS: PIPERACILLIN/TAZOBACTAM 3.375 GM in DEXTROSE 5% 100 ML IV SCH ×2 (03:07→11:01)
[2021-09-27 07:23] LABS: Basophils # (auto) 0.03 K/uL (0-0.2); Basophils % (auto) 0.4 %; Eosinophils # (auto) 0.09 K/uL (0-0.5); Eosinophils % (auto) 1.3 %; Hematocrit (blood only) 39.9 % (42-52); Hemoglobin 13.5 g/dL (14.0-18.0); Lymphocytes # (auto) 1.35 K/uL (1.2-3.4); Lymphocytes % (auto) 18.8 %; Mean Corpuscular Hemoglobin 33.3 pg (25-34); Mean Corpuscular Hgb Conc 33.8 g/dL (32-36); Mean Corpuscular Volume 98.3 fL (80-100); Mean Platelet Volume 11.3 fL (7.4-10.4); Monocytes # (auto) 0.79 K/uL (0.11-0.59); Neutrophils # (auto) 4.92 K/uL (1.4-6.5); Neutrophils % (auto) 68.5 %; Platelet Count 187 K/uL (130-400); RDW Coefficient of Variation 13.5 % (11.5-14.5); RDW Standard Deviation 48.5 fL (36.4-46.3); Red Blood Count 4.06 M/uL (4.7-6.1); White Blood Count 7.18 K/uL (4.8-10.8)
[2021-09-27 07:56] LABS: Albumin Level 2.9 gm/dl (3.4-5.0); BUN Creatinine Ratio 13.3 (10-20); Calcium 8.1 mg/dl (8.5-10.1); Creatinine Clr Calc Pharmacy 78.9 ml/min; Est GFR (African American) 99.9 ml/min; Est GFR (Non-African American) 86.2 ml/min; Potassium 3.7 mmol/L (3.5-5.1)
[2021-09-27 08:00] LABS: Bilirubin,Total 2.3 mg/dl (0.2-1); Total Protein 5.9 gm/dl (6.4-8.2)
[2021-09-27] MEDS ORDERED: Nursing to Pharmacy Communication SCH (08:00)
[2021-09-27] MEDS ORDERED: SODIUM CHLORIDE 0.9% 1000ML 1,000 ML IV SCH (08:15)
--- NOTE | 2021-09-27 09:52 | XRay Report ---
KUB HISTORY: Follow up study in a patient with ileus Follow up of ileus/distended bowel loops COMPARISON: KUB and CT abdomen and pelvis 09/26/2021 FINDINGS: Interval removal of the rectal tube. There is persistent gaseous distention of the large telly wel which has improved from prior. No small bowel obstruction. Mild fecal retention. No renal calcul i. No ureteral calculi. No pneumoperitoneum or pneumatosis. No fracture. IMPRESSION: There is persistent gaseous distention of the large bowel which has decreased from comparison status post removal of the rectal tube. ACT 112: Negative or not required by law. The above report was generated using voice recognition software. It may contain grammatical, syntax o r spelling errors. Electronically signed by: Jose Khoury M.D. 09/27/2021 9:51 AM
[2021-09-27] MEDS: SODIUM CHLORIDE 0.9% 500 ML IV SCH ×2 (10:34→10:35)
[2021-09-27] MEDS ORDERED: LACTULOSE SYRUP 20 GM/30 ML UDC PO ONE (11:00)
[2021-09-27] MEDS: FAMOTIDINE 20 MG in SYRINGE 3 ML IV SCH (11:01)
--- NOTE | 2021-09-27 11:17 | Gastroenterology Progress Note ---
Date of Service September 27, 2021 Assessment & Plan (1) Sigmoid volvulus: Plan: s/p colonoscopy with decompression on 09/26. much improved now with improving KUBs recs: lactulose 20 g x 1 now PO clear liquid diet if continues to improve can likely d/c home later today, would d/c on linzess 145 mcg daily follow up in 1 week in the GI office supportive care Admission and Anticipated Discharge Date Admission Date: September 26, 2021 Subjective no events overnight, doing well today. afebrile. KUB today improved, rectal tube came out this morning. labs reviewed, VSS. Review of Systems Constitutional: no fever and no chills Respiratory: no cough, no dyspnea and no dyspnea on exertion Cardiovascular: no chest pain and no dyspnea Gastrointestinal: as per Subjective / HPI Psychiatric: no depression and no anxiety Physical Exam Constitutional: WD/WN, vitals as above Respiratory: normal respiratory effort, lungs clear to auscultation Cardiovascular: RRR, no murmur, no edema Gastrointestinal (Abdomen): normal bowel sounds, soft, nontender, no hepatosplenomegaly Musculoskeletal: no lower extremity edema Psychiatric: A+Ox3, euthymic affect Results & Data Results & Data ([facility]) Vital Signs (Past 12 Hours) Vital Signs Temp Pulse Pulse Pulse Resp BP Pulse Ox 09/27/21 07:58 36.8 C 65 20 116/67 98 09/27/21 03:56 36.7 C 60 20 111/66 96 09/27/21 03:48 62 PG Care Time/CCT Total # of Minutes Spent Total Time Spent with Patient: Total time spent is greater than 50% in coordination of care (as documented) at patient's floor/unit and/or counseling patient: Coding Level of Care Code 64845 Subseq Hosp Care Lvl 3 Diagnoses Sigmoid volvulus K56.2
--- NOTE | 2021-09-27 15:44 | Discharge Summary ---
Date of Service September 27, 2021 Admission HPI Per Admitting Provider The patient is a 60-year-old male with no significant past medical history, who presents with symptoms as noted above. CT scan of abdomen pelvis: Sigmoid volvulus, no evidence of bowel perforation, bowel ischemia such as pneumatosis intestinalis, or portal venous gas Abnormal laboratories: Sodium 132, glucose 114, total bilirubin 2.1 Admission Exam Per Admitting Provider The patient is awake, alert and oriented 3, well developed and well nourished, normocephalic and atraumatic, lying in bed and in no acute distress after administration of IV pain medications HEENT--PERRL, EOMI, mucous membranes and oropharynx mildly dry. Neck--supple. No JVD. No bruits. Thyroid normal, trachea midline, no adenopathy. Heart--normal S1 and S2. No murmurs, rubs or gallops. Lungs--clear bilaterally, no respiratory distress, no accessory muscle use. Abdomen--decreased bowel sounds. Mildly firm. Nontender post IV pain medications. Mildly distended. Extremities--no cyanosis or clubbing. No edema. Dermatologic--normal skin turgor, normal color, no abnormal lymph nodes, no rash. Neurologic--cranial nerves II through XII grossly intact. Rheumatologic--normal range of motion. Psychiatric--normal affect. Principal Diagnosis Sigmoid volvulus s/p decompression Discharge Exam Vital Signs Temp Pulse Pulse Pulse Resp BP BP 09/27/21 12:00 36.3 C L 58 L 18 117/71 09/27/21 07:58 36.8 C 65 20 116/67 09/27/21 03:56 36.7 C 60 20 111/66 09/27/21 03:48 62 09/26/21 21:25 59 L 16 113/58 L 09/26/21 19:34 72 16 117/71 Pulse Ox 09/27/21 12:00 100 09/27/21 07:58 98 09/27/21 03:56 96 09/27/21 03:48 09/26/21 21:25 100 09/26/21 19:34 99 Intake and Output 09/27/21 09/27/21 09/27/21 06:59 14:59 22:59 Intake Total 600 / 2385 415 / 530 115 / 530 Output Total 425 / 876 Balance 175 / 1509 415 / 530 115 / 530 Intake: IV 600 / 1835 115 / 230 115 / 230 Acetaminophen 1,000 mg In 100 100 / 100 ml @ 400 mls/hr IV Q8H PRN Rx#: [id number] Piperacillin/Tazobactam 3.375 115 / 230 115 / 230 gm In Dextrose 5% 100 ml @ 28. 75 mls/hr IV Q8H KATIA Rx#: [id number] Sodium Chloride 0.9% 500 ml @ 500 / 1500 125 mls/hr IV .Q4H KATIA Rx#: [id number] Oral 300 / 300 Output: Urine 425 / 875 Other: Other Intake Source NPO # Unmeasured Voids 1 Weight 67.3 kg Weight Measurement Method Built in [facility] GENERAL: 60 yo WD/WN WM. Pleasant, cooperative. NAD. LUNGS: Clear to auscultation bilaterally. No accessory muscle use. No W/R/R. CARDIOVASCULAR: Regular rate and rhythm. No M/G/R. No JVD. ABDOMEN: Soft, non-tender and non-distended. No palpable masses. Bowel sounds normoactive x 4 quad. EXTREMITIES: No edema. Non-tender. Peripheral pulses +2/4. PSYCHIATRIC: Cooperative. Appropriate mood and affect. SKIN: Warm, dry, intact. No rashes or lesions. Discharge Data Allergies Allergy/AdvReac Type Severity Reaction Status Date / Time No Known Drug Allergies Allergy . Verified 09/30/21 09:02 Consultations Gastroenterology was consulted d/t sigmoid volvulus -- please see Dr. Yee's consult note for further details Procedures Performed Operation Date: 09/26/21 09:00 Actual Procedures Colonoscopy(Not Applicable) - Franck Yee MD Findings: - A volvulus with viable appearing mucosa was found in the sigmoid colon. Decompression of the volvulus was attempted and was successful, with complete decompression achieved. Following the maneuver, a tube was placed to maintain the decompression. - Non-bleeding internal hemorrhoids were found. The hemorrhoids were small. Ordered Studies Chest/Abdomen X-ray 09/26/21 02:00 XR abdomen 2V w PA chest CLINICAL HISTORY: eval for sbo vs. constipation TECHNIQUE: 2 views of the abdomen were obtained. A single view of the chest was obtained. Comparison: None available at the time of this dictation. FINDINGS: No lines and tubes are seen. The cardiomediastinal silhouette is normal. The lungs are clear. No evidence of pleural effusion or pneumothorax. The osseous structures are grossly unremarkable. Multiple gas-distended loops of large and small bowel are seen. A moderate amount of stool is noted within the large bowel. IMPRESSION: Multiple gas-distended loops of large and small bowel are seen compatible with small bowel obstruction. ACT 112: Negative or not required by law. Electronically signed by: Guicho Theodore M.D. 09/26/2021 8:44 AM Abdomen/Pelvis CT 09/26/21 03:11 CT abd pelvis IV con only CLINICAL HISTORY: eval for sbo vs. volvulus TECHNIQUE: Helical axial images of the abdomen and pelvis were obtained and displayed. Automated dose lowering techniques and/or adjustment according to patient size were utilized for this exam. This exam was performed with intravenous contrast. COMPARISON: Comparison is made to CT abdomen pelvis 11/20/2020 FINDINGS: Lower chest: No acute abnormality Liver: Unremarkable. No focal lesions are seen. Gallbladder and biliary tree: No calcified gallstones. Normal caliber wall. No intra- or extrahepatic biliary ductal dilation. Pancreas: Unremarkable, no focal lesions. Spleen: Stable appearance of splenic lesion which may represent hemangioma. Adrenals: Unremarkable. Kidneys and ureters: Unremarkable. Bladder: Unremarkable. Reproductive organs: Unremarkable. Bowel: There is twisting of the mesentery about the sigmoid colon. A vascular swirl is seen in the region of obstruction There is massive dilation of the distal colon and prominence of multiple distal small bowel loops. No evidence of perforation or ischemia. Lymph nodes Retroperitoneal: Unremarkable. Mesenteric: Unremarkable. Pelvic: Unremarkable. Peritoneum: Normal Vessels: Atherosclerotic calcifications are seen. Abdominal wall: Unremarkable. Bones: Unremarkable. IMPRESSION: 1. Findings are compatible with sigmoid volvulus. No evidence of perforation or ischemia. 2. Additional findings as above. ACT 112: Negative or not required by law. Electronically signed by: Guicho Theodore M.D. 09/26/2021 8:51 AM KUB X-Ray 09/26/21 09:59 XR KUB/Abdomen 1 view CLINICAL HISTORY: volvulus s/p decompression and tube placement TECHNIQUE: 1 view of the abdomen was obtained. Comparison: None available at the time of this dictation. FINDINGS: Lung bases are unremarkable. The osseous structures are grossly unremarkable. Significant interval decrease in large bowel gas, with significant residual large and small bowel gaseous distention. A moderate amount of stool is noted within the large bowel. IMPRESSION: Interval significant improvement in large bowel gas with however significant residual gas distended loops of large and small bowel. ACT 112: Negative or not required by law. Electronically signed by: Guicho Theodore M.D. 09/26/2021 10:27 AM KUB X-Ray 09/27/21 08:27 KUB HISTORY: Follow up study in a patient with ileus Follow up of ileus/distended bowel loops COMPARISON: KUB and CT abdomen and pelvis 09/26/2021 FINDINGS: Interval removal of the rectal tube. There is persistent gaseous distention of the large bowel which has improved from prior. No small bowel obstruction. Mild fecal retention. No renal calculi. No ureteral calculi. No pneumoperitoneum or pneumatosis. No fracture. IMPRESSION: There is persistent gaseous distention of the large bowel which has decreased from comparison status post removal of the rectal tube. ACT 112: Negative or not required by law. The above report was generated using voice recognition software. It may contain grammatical, syntax or spelling errors. Electronically signed by: Jose Khoury M.D. 09/27/2021 9:51 AM Hospital Course (1) Volvulus of sigmoid colon: Resolved S/P endoscopy for decompression - Patient's rectal tube fell out this AM and was left out - Reimaged w/ KUB this AM with results noted above, some gaseous distention of colon which has decreased since removal of rectal tube - Pt given dose of Lactulose, has had a couple of BMs since then, continues to pass gas as well - No further c/o abdominal pain, no n/v - Clear liquid diet ordered this AM, pt has tolerated thus far - Dr. Yee notes that pt may advance diet back to regular, high fiber to reduce further recurrence of constipation, f/u in office within 1 week (2) Constipation: IBS w/ constipation - Pt has been taking MiraLax without much relief - Dr. Yee recommends Linzess 145mcg daily -- will rx upon d/c Patient is clinically stable. Wishes to be discharged, understands he is at risk of this recurring. Will arrange for f/u with [facility] to discuss and schedule elective hemicolectomy. Will leave message with nurse navigator to arrange this on Tuesday (09/28) and call pt with appt. Also advise f/u with Dr. Yee within 1 week and PCP in that time frame as well. Total Time Total Time Spent Total Time Spent (In Minutes): <30 minutes Discharge Plan Discharge Items Patient Disposition: Home - Self-Care Reason For Visit: SIGMOID VOLVULUS Discharge Diagnosis: Sigmoid Activity: Resume your previous activity Non-emergency contact: Primary Care Provider and Lens Inspector Call non-emergency contact if: you have any medication questions and your symptoms worsen Follow-up/Referrals: Franck Yee MD [Physician] - (1 week follow up) Ne Salas [Primary Care Provider] - (Please call your primary care doctor and make a hospital follow up appointment.) Diet: Regular Addtl Attending Provider Instructions: 1. Take all medications as directed. 2. Note new medication: Linzess, take once daily as directed. 3. Follow up with Dr. Yee within 1 week. 4. Return to hospital in event of recurrent abdominal pain, n/v. 5. Will arrange for referral to [facility] - Colorectal Surgery. Will contact you with an appointment. Pending Studies at Discharge: No Stand-Alone Forms: [employer], Smoking Cessation Medications and DC Order Prescriptions: New Linzess 145 mcg capsule 145 mcg PO DAILY Qty: 30 RF: 0 Discontinued polyethylene glycol 3350 [Miralax] 17 gram/dose Powder 17 g PO DAILY RF: 0 Discharge Orders: Discharge Order (Routine); Ordered 09/27/21 Ordered By: Marta Rowe Admission Data Admit Date/Time: 09/26/21 06:32 Attending Provider: Billy Chandler Admit Provider: Joe Armstrong Primary Care Provider: Ne Salas Other Providers: Joe Armstrong ; Franck Yee Other Interventions: Discharge Summary Assessment (RN) Last Done: 09/27/21 16:23 Supervising Physician Co-Signing Physician Notes Attending Attestation & Discharge Note - Pt seen/examined, chart reviewed, care plan d/w PA Marta Rowe. I agree w/ the peralta components of her documentation. 60yo male with h/o IBS-C who presented with intermittent abdominal pain and lack of bowel movement for over 24+ hours. No nausea or emesis. Upon ER presentation underwent CT abd/pelvis showing a sigmoid volvulus. Taken to OR by Dr Franck Yee who performed colonic decompression with placement of rectal tube. Following the therapeutic colonoscopy the patient's abdominal symptoms improved. Rectal tube fell out on hospital day #2. Despite such he was passing stool/gas and tolerating a diet. He will need close f/u with Dr Yee in the GI clinic, as well as referral to colorectal surgery to discuss elective sigmoid resection to prevent a future recurrence. Discharge exam - gen - thin, NAD mouth - MMM heart - RRR, s1 s2, no murmur lungs - CTA b/l abd - mildly distended, BS+, NT, no HSM ext - no edema, pulses 2+ b/l Billy Chandler MD Coding Level of Care Code 10521 OBS Care - Discharge Diagnoses Volvulus of sigmoid colon K56.2 Constipation K59.00
== END 2021-09-27 17:52 | disposition home or self-care (01) ==
LOC: EDINP 00:13 → SUATTDRO 06:32 → 2N 08:54

== ENCOUNTER 2021-12-22 21:07 | Inpatient (IN) ==
[2021-12-22] MEDS ORDERED: SODIUM CHLORIDE 0.9% 1000ML 500 ML IV ONE (22:17)
[2021-12-22 22:18] LABS: Appearance Urine Clear (Clear); Bilirubin Urine Negative (Negative); Blood Urine Negative (Negative); Color Urine Yellow; Glucose Urine UA Negative (Negative); Ketones Urine Negative (Negative); Leukocyte Esterase Urine Negative (Negative); Nitrite Urine Negative (Negative); Protein Urine Negative (Negative); Specific Gravity Urine 1.005 (1.000-1.030); Urobilinogen Urine Negative (Negative); pH Urine 6.5 (4.5-7.5)
--- NOTE | 2021-12-22 22:18 | Emergency Department Note ---
Impression & Plan Sigmoid volvulus ADMIT ED Provider Note HPI: The patient is a 61-year-old male with history of a sigmoid volvulus in September 2021 that required decompression via gastroenterology, who presents the emergency department the chief complaint of constipation and abdominal pain. Patient states that today he was having some issues with constipation, states he had a bowel movement in the morning but then when he attempted to have a second bowel movement he was having some pain in his mid abdomen area, states that this continued throughout the day intermittently and he was unable to have a bowel movement, he states he had similar symptoms in September when he had a sigmoid volvulus. Patient denies any vomiting, on arrival here to the ED he is hemodynamically stable, he is overall in no acute distress on my initial evaluation. ROS: -GI: Constipation, abdominal pain *10 point review systems was conducted and is otherwise negative unless stated above *Outpatient medications and allergy history reviewed PE: General: Alert, NAD HEENT: Normocephalic, atraumatic Eyes: Extraocular eye movement is intact, no scleral erythema Pulmonary: Clear to auscultation bilaterally, no wheezing Cardio: Regular rate and rhythm GI: Abdomen is soft, moderate tenderness to the mid abdomen on palpation, no guarding or rigidity : No suprapubic tenderness MSK: No evidence of trauma or malformation of the extremities, no edema Skin: No evidence of rash Neuro: Alert, no focal deficits Psychiatric: Cooperative monitor technician: - An order was placed for continuous cardiac monitoring - Patient was noted to be in sinus rhythm with rate of 60 EKG: Rate: 55 Rhythm: Sinus bradycardia Intervals: Within normal limits ST changes: No ST elevation Time: 0056 Preliminary Findings Only See Final Report For Complete Findings CT ABDOMEN & PELVIS With Contrast: Comparison: CT abdomen pelvis with contrast 09/26/2021 Gaseous distention throughout the colon with an abrupt tapering/beaking of the sigmoid colon in the left lower quadrant, with mild associated swelling of the adjacent mesentery, suspicious for recurrent sigmoid volvulus. No significant free fluid or free air. No pneumatosis or portal venous gas. Excess colonic stool burden. Stable 3.7 cm heterogeneous lesion within the spleen. Cholelithiasis. Medical Decision Making: Patient presented to the emergency department the chief complaint of abdominal pain constipation, stated his symptoms felt similar to those that he had September 2021 when he was diagnosed with a sigmoid volvulus that did require decompressive procedure performed by gastroenterology.On arrival to the ED the patient is hemodynamically stable, he is nontoxic-appearing on my initial assessment, he has not had any nausea or vomiting. IV was established, lab work obtained, CT imaging of the abdomen pelvis was ordered with IV contrast that unfortunately does show evidence of what appears to be sigmoid volvulus with gaseous distention throughout the colon.Lab work is otherwise largely reassuring, no evidence of acute kidney injury, patient has not had any active vomiting while here in the ED.Discussed the above findings with on-call gastroenterology, Dr. Duong, who states that given the patient's current hemodynamic stability and absence of severe symptoms such as pain or nausea/vomiting, He can undergo decompressive colonoscopy in the morning, be kept n.p.o. at this time, did recommend NG tube placement as well as tapwater enema, Which are ordered. Recommended admission to the hospital service. I discussed all the above findings with the patient at the bedside, Patient states that this time he is pain-free. Hospitalist service was consulted for admission, plan currently will be for the patient to go to the endoscopy suite in the morning for decompressive colonoscopy.Patient is in agreement to the above plan he was admitted in stable condition. Diagnosis: 1. Volvulus of the sigmoid colon 2. Abdominal pain, acute 3. Constipation Disposition: Admission Mike Lugo DO Emergency Medicine Past Med/Surg History Medical History Irritable bowel syndrome Social History Smoking Status: Never smoker Hx Alcohol Use: Yes Alcohol type: beer Hx Substance Use: No Preferred Language: Macanese Communication Ability: Effective Oil Inspector Required: No Beliefs That Will Affect Care: None Current Living Situation: Spouse Feels Safe at Home: Yes Assistive Devices: None Allergies Allergies Allergy/AdvReac Type Severity Reaction Status Date / Time No Known Drug Allergies Allergy . Verified 12/22/21 22:28 Home Meds Home Medications Medication Instructions Recorded Confirmed cholecalciferol (vitamin D3) 25 25 mcg PO DAILY 12/22/21 12/22/21 mcg (1,000 unit) tablet Previous Rx's Medication Instructions Recorded linaclotide 145 mcg capsule 145 mcg PO DAILY #30 cap 09/27/21 (Linzess) Results & Data (ED) Vital Signs Vital Signs - 24 hr 12/22/21 21:10 12/22/21 23:47 12/22/21 23:48 Temperature 36.5 C Temperature Source Temporal Artery Scan Pulse Rate 60 Pulse Rate [Right Finger] 55 L Respiratory Rate 16 18 Blood Pressure 155/85 H Blood Pressure [Right Arm] 126/71 Blood Pressure Mean 108 Blood Pressure Mean [Right Arm] 89 Blood Pressure Position Sitting Pulse Oximetry 96 98 98 Oxygen Delivery Method Room Air Room Air Room Air Sepsis Recent Fever Within 48 Hours No Sepsis New/Unexplained Change in Mental Status No Sepsis Action Taken by Nursing No Action Required Laboratory Data Result diagrams: 12/22/21 22:04 12/22/21 22:04 Lab Results 12/22/21 12/22/21 12/22/21 Range/Units 22:04 22:04 22:04 WBC 6.85 (4.8-10.8) K/uL RBC 4.60 L (4.7-6.1) M/uL Hgb 15.3 (14.0-18.0) g/dL Hct 45.0 (42-52) % MCV 97.8 (80-100) fL MCH 33.3 (25-34) pg MCHC 34.0 (32-36) g/dL RDW Std Deviation 46.6 H (36.4-46.3) fL RDW Coeff of Jeffery 13.0 (11.5-14.5) % Plt Count 230 (130-400) K/uL MPV 11.0 H (7.4-10.4) fL Immature Gran % (Auto) 0.1 % Neut % (Auto) 66.4 % Lymph % (Auto) 19.7 % Hemphill % (Auto) 11.5 % Eos % (Auto) 1.9 % Baso % (Auto) 0.4 % Neut # (Auto) 4.54 (1.4-6.5) K/uL Lymph # (Auto) 1.35 (1.2-3.4) K/uL Hemphill # (Auto) 0.79 H (0.11-0.59) K/uL Eos # (Auto) 0.13 (0-0.5) K/uL Baso # (Auto) 0.03 (0-0.2) K/uL Immature Gran # (Auto) 0.01 (0.00-0.02) K/uL Sodium 134 L (136-145) mmol/L Potassium 3.7 (3.5-5.1) mmol/L Chloride 98 (98-107) mmol/L Carbon Dioxide 29 (21-32) mmol/L Anion Gap 7 (3-11) BUN 13 (6-23) mg/dl Creatinine 0.81 (0.6-1.4) mg/dl Est Cr Clr Drug Dosing 90.3 ml/min Est GFR ( Amer) 112.0 ml/min Est GFR (Non-Af Amer) 96.6 ml/min BUN/Creatinine Ratio 16.0 (10-20) Glucose 96 (70-99(Fasting)) mg/dl Calcium 8.9 (8.5-10.1) mg/dl Total Bilirubin 1.3 H (0.2-1.0) mg/dl AST 34 (13-39) U/L ALT 22 (7-52) U/L Alkaline Phosphatase 49 (34-104) U/L Total Protein 7.5 (6.0-8.3) gm/dl Albumin 4.6 (3.4-5.0) gm/dl Globulin 2.9 (2.5-4.0) gm/dl Albumin/Globulin Ratio 1.6 (0.9-2) Lipase 58 (11-82) U/L Urine Color Yellow Urine Appearance Clear (Clear) Urine pH 6.5 (4.5-7.5) Ur Specific [place] 1.005 (1.000-1.030) Urine Protein Negative (Negative) Urine Glucose (UA) Negative (Negative) Urine Ketones Negative (Negative) Urine Blood Negative (Negative) Urine Nitrite Negative (Negative) Urine Bilirubin Negative (Negative) Urine Urobilinogen Negative (Negative) Ur Leukocyte Esterase Negative (Negative) Administered Medications Discontinued Medications Sodium Chloride (Nss 1000ml) 500 mls @ 999 mls/hr IV .Q31M ONE Stop: 02/15/22 22:47 Last Infusion: 12/23/21 00:32 Dose: 0 mls/hr Documented by: [id number] Admin: 12/22/21 23:44 Dose: 999 mls/hr Documented by: [id number] Ioversol (Optiray 320 100ml) 95 ml IV ONCE ONE Stop: 12/22/21 23:39 Last Admin: 12/22/21 23:38 Dose: 95 ml Documented by: [id number] Discharge Plan Visit Data Chief Complaint: Abdominal Pain Stated Complaint: CONSTIPATION, ABDOM PAIN, HX OF COLON ISSUES ED Provider: Mike Lugo Discharge Problem: Sigmoid volvulus Forms Stand Alone Forms: [facility] Prescriptions Prescriptions: No Action cholecalciferol (vitamin D3) 25 mcg (1,000 unit) Tablet 25 mcg PO DAILY RF: 0 Linzess 145 mcg capsule 145 mcg PO DAILY Qty: 30 RF: 0 Referrals Referrals: Ne Salas [Primary Care Provider] -
[2021-12-22 22:34] LABS: Basophils # (auto) 0.03 K/uL (0-0.2); Basophils % (auto) 0.4 %; Eosinophils # (auto) 0.13 K/uL (0-0.5); Eosinophils % (auto) 1.9 %; Hemoglobin 15.3 g/dL (14.0-18.0); Immature Granulocytes # (auto) 0.01 K/uL (0.00-0.02); Immature Granulocytes % (auto) 0.1 %; Lymphocytes # (auto) 1.35 K/uL (1.2-3.4); Lymphocytes % (auto) 19.7 %; Mean Corpuscular Hemoglobin 33.3 pg (25-34); Mean Corpuscular Volume 97.8 fL (80-100); Monocytes # (auto) 0.79 K/uL (0.11-0.59); Monocytes % (auto) 11.5 %; Neutrophils # (auto) 4.54 K/uL (1.4-6.5); Neutrophils % (auto) 66.4 %; Platelet Count 230 K/uL (130-400); RDW Standard Deviation 46.6 fL (36.4-46.3); White Blood Count 6.85 K/uL (4.8-10.8)
[2021-12-22 22:40] LABS: Albumin Globulin Ratio 1.6 (0.9-2); Albumin Level 4.6 gm/dl (3.4-5.0); Bilirubin,Total 1.3 mg/dl (0.2-1.0); Calcium 8.9 mg/dl (8.5-10.1); Creatinine Clr Calc Pharmacy 90.3 ml/min; Est GFR (Non-African American) 96.6 ml/min; Globulin 2.9 gm/dl (2.5-4.0); Potassium 3.7 mmol/L (3.5-5.1); Total Protein 7.5 gm/dl (6.0-8.3)
[2021-12-22] MEDS ORDERED: OPTIRAY 320 100ml IV ONE (23:38)
--- NOTE | 2021-12-23 02:10 | History & Physical Report ---
Date of Service December 23, 2021 Assessment & Plan (1) Sigmoid volvulus: Plan: Recurrent sigmoid volvulus- First episode resolved with decompressive colonoscopy during admission from 09/26-09/27/2021 NPO IV fluids No need for pain medications at this time Patient knows to notify us immediately if he develops any progression of symptoms On-call gastroenterology is aware, and will see the patient in the a.m. (2) Irritable bowel syndrome with constipation: Plan: Hold Linzess History of Present Illness Chief Complaint: The patient presents to the emergency department with acute onset of left lower quadrant abdominal pressure and gas this evening. Primary Care Provider: Ne Salas The patient is a 61-year-old male with a past medical history of sigmoid volvulus, and irritable bowel with constipation. He underwent decompressive colonoscopy on 09/26/2021 for sigmoid volvulus, and his symptoms and CT are suggestive of recurrence this evening. The on-call sleep manager has been consulted, and reports that they will be in in the morning to do decompressive colonoscopy. Allergies Allergy/AdvReac Type Severity Reaction Status Date / Time No Known Drug Allergies Allergy . 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 Beliefs That Will Affect Care: None Current Living Situation: Spouse Feels Safe at Home: Yes Assistive Devices: None Review of Systems Review of Systems: The patient denies chest pain, palpitations, shortness of breath, dyspnea on exertion, cough, lower extremity swelling, sore throat, fevers, chills, sweats, nausea, vomiting, diarrhea, constipation, blood in urine or stool, dysuria, urinary frequency or urgency, lightheadedness, dizziness, headache, memory loss, loss of consciousness, rash, abnormal bruising or bleeding, imbalance, focal or generalized weakness, numbness or tingling in arms or legs, generalized arthralgias or myalgias, back or neck pain, or night sweats. The review of systems is otherwise negative other than for that already noted above, and at least 10 systems have been reviewed. Physical Exam Physical Exam: The patient is awake, alert and oriented 3, well developed and well nourished, normocephalic and atraumatic, lying in bed and in no acute distress. HEENT--PERRL, EOMI, mucous membranes and oropharynx normal. Neck--supple. No JVD. No bruits. Thyroid normal, trachea midline, no adenopathy. Heart--normal S1 and S2. No murmurs, rubs or gallops. Lungs--clear bilaterally, no respiratory distress, no accessory muscle use. Abdomen--normal bowel sounds and soft. Mild tenderness left upper quadrant. Mild distention. Mildly tympanitic Extremities--no cyanosis or clubbing. No edema. Dermatologic--normal skin turgor, normal color, no abnormal lymph nodes, no rash. Neurologic--cranial nerves II through XII grossly intact. Rheumatologic--normal range of motion. Psychiatric--normal affect. Results & Data Results & Data ([facility]) Vital Signs (Past 12 Hours) Vital Signs Temp Pulse Pulse Resp BP BP Pulse Ox 12/22/21 23:48 98 12/22/21 23:47 55 L 18 126/71 98 12/22/21 21:10 36.5 C 60 16 155/85 H 96 Laboratory Results Laboratory Results WBC 6.85 K/uL (4.8-10.8) 12/22/21 22:04 RBC 4.60 M/uL (4.7-6.1) L 12/22/21 22:04 Hgb 15.3 g/dL (14.0-18.0) 12/22/21 22:04 Hct 45.0 % (42-52) 12/22/21 22:04 MCV 97.8 fL (80-100) 12/22/21 22:04 MCH 33.3 pg (25-34) 12/22/21 22:04 MCHC 34.0 g/dL (32-36) 12/22/21 22:04 RDW Std Deviation 46.6 fL (36.4-46.3) H 12/22/21 22:04 RDW Coeff of Jeffery 13.0 % (11.5-14.5) 12/22/21 22:04 Plt Count 230 K/uL (130-400) 12/22/21 22:04 MPV 11.0 fL (7.4-10.4) H 12/22/21 22:04 Immature Gran % (Auto) 0.1 % 12/22/21 22:04 Neut % (Auto) 66.4 % 12/22/21 22:04 Lymph % (Auto) 19.7 % 12/22/21 22:04 [place] % (Auto) 11.5 % 12/22/21 22:04 Eos % (Auto) 1.9 % 12/22/21 22:04 Baso % (Auto) 0.4 % 12/22/21 22:04 Neut # (Auto) 4.54 K/uL (1.4-6.5) 12/22/21 22:04 Lymph # (Auto) 1.35 K/uL (1.2-3.4) 12/22/21 22:04 [place] # (Auto) 0.79 K/uL (0.11-0.59) H 12/22/21 22:04 Eos # (Auto) 0.13 K/uL (0-0.5) 12/22/21 22:04 Baso # (Auto) 0.03 K/uL (0-0.2) 12/22/21 22:04 Immature Gran # (Auto) 0.01 K/uL (0.00-0.02) 12/22/21 22:04 Sodium 134 mmol/L (136-145) L 12/22/21 22:04 Potassium 3.7 mmol/L (3.5-5.1) 12/22/21 22:04 Chloride 98 mmol/L (98-107) 12/22/21 22:04 Carbon Dioxide 29 mmol/L (21-32) 12/22/21 22:04 Anion Gap 7 (3-11) 12/22/21 22:04 BUN 13 mg/dl (6-23) 12/22/21 22:04 Creatinine 0.81 mg/dl (0.6-1.4) 12/22/21 22:04 Est Cr Clr Drug Dosing 90.3 ml/min 12/22/21 22:04 Est GFR ( Amer) 112.0 ml/min 12/22/21 22:04 Est GFR (Non-Af Amer) 96.6 ml/min 12/22/21 22:04 BUN/Creatinine Ratio 16.0 (10-20) 12/22/21 22:04 Glucose 96 mg/dl (70-99(Fasting)) 12/22/21 22:04 Lactate 0.4 mmol/L (0.4-2.0) 12/23/21 01:38 Calcium 8.9 mg/dl (8.5-10.1) 12/22/21 22:04 Total Bilirubin 1.3 mg/dl (0.2-1.0) H 12/22/21 22:04 AST 34 U/L (13-39) 12/22/21 22:04 ALT 22 U/L (7-52) 12/22/21 22:04 Alkaline Phosphatase 49 U/L (34-104) 12/22/21 22:04 Total Protein 7.5 gm/dl (6.0-8.3) 12/22/21 22:04 Albumin 4.6 gm/dl (3.4-5.0) 12/22/21 22:04 Globulin 2.9 gm/dl (2.5-4.0) 12/22/21 22:04 Albumin/Globulin Ratio 1.6 (0.9-2) 12/22/21 22: Lipase 58 U/L (11-82) 12/22/21 22:04 Urine Color Yellow 12/22/21 22:04 Urine Appearance Clear (Clear) 12/22/21 22:04 Urine pH 6.5 (4.5-7.5) 12/22/21 22:04 Ur Specific [place] 1.005 (1.000-1.030) 12/22/21 22: Urine Protein Negative (Negative) 12/22/21 22: Urine Glucose (UA) Negative (Negative) 12/22/21 22:04 Urine Ketones Negative (Negative) 12/22/21 22: Urine Blood Negative (Negative) 12/22/21 22: Urine Nitrite Negative (Negative) 12/22/21 22:04 Urine Bilirubin Negative (Negative) 12/22/21 22:04 Urine Urobilinogen Negative (Negative) 12/22/21 22:04 Ur Leukocyte Esterase Negative (Negative) 12/22/21 22:04 SARS-CoV-2, RNA, NAAT NEGATIVE (NEGATIVE) 12/23/21 01:36 Code Status & VTE Plan Code Status Full code VTE Prophylaxis Plan VTE Prophylaxis will be ordered: Yes PG Care Time/CCT Total # of Minutes Spent Total Time Spent with Patient: Total time spent is greater than 50% in coordination of care (as documented) at patient's floor/unit and/or counseling patient: Coding Level of Care Code 30088 Initial Inpt Care Lvl 2 Diagnoses Sigmoid volvulus K56.2 Irritable bowel syndrome with constipation K58.1
[2021-12-23] MEDS ORDERED: ONDANSETRON INJ 2 MG/ML 2 ML VIAL IV PRN (04:23)
[2021-12-23] MEDS: LACTATED RINGER'S 1,000 ML IV SCH ×2 (04:37→21:31)
[2021-12-23] MEDS: FAMOTIDINE 20 MG in SYRINGE 3 ML IV SCH ×2 (06:08→18:23)
--- NOTE | 2021-12-23 08:16 | XRay Report ---
SINGLE VIEW CHEST CLINICAL HISTORY: Preoperative examination. Sigmoid volvulus. FINDINGS: An AP, portable, upright chest radiograph is compared to study dated 09/26/2021. The heart is top normal for projection. The mediastinal contour is within normal limits. There is mild chronic elevation of the left hemidiaphragm. The lungs and pleural spaces are clear. No pneumothorax is seen. The bony thorax is grossly intact. Gaseous distention of the colon as noted below the diaphragm. IMPRESSION: No active disease in the chest. ACT 112: Negative or not required by law. Electronically signed by: Lloyd Crook M.D. 12/23/2021 8:15 AM
--- NOTE | 2021-12-23 08:32 | CT Scan Report ---
ABDOMEN AND PELVIS CT WITH IV CONTRAST CT DOSE: 294.71 mGy.cm HISTORY: Acute generalized abdominal pain with constipation Constipation, abd pain, hx of sigmoid vo lv. TECHNIQUE: Multiaxial CT images of the abdomen and pelvis were performed following the IV administrat ion of 95 cc of Optiray, A dose lowering technique was utilized adhering to the principles of ALARA. COMPARISON STUDY: CT abdomen and pelvis 09/26/2021, 11/20/2020. FINDINGS: The imaged inferior cardiac chambers are unremarkable. Clear lung bases. No pneumatosis or pneumoperitoneum. Heterogeneous 3.5 cm enhancing splenic mass is stable dating back to 11/20/2020 exam . Unremarkable pancreas, adrenal glands and liver. Cholelithiasis. Symmetric enhancement of the kidne ys. There is no hydronephrosis. Mild urinary bladder distention with prostamegaly. Atherosclerosis of the aorta without aneurysm. There is no adenopathy. Swirling of the mesentery redemonstrated with associated sigmoid volvulus. Upstream gaseous distentio n of the colon measures up to approximately 7.8 cm transversely. Transition point noted on image 251 series 3. Moderate fecal retention. A dilated loop of small bowel measuring up to 3.4 cm is noted wit hin the lower pelvis may represent concomitant developing small bowel obstruction. Several air and fl uid-filled loops of small bowel within the lower abdomen and pelvis. The appendix is not definitively seen. Unremarkable soft tissues. No acute fracture. IMPRESSION: 1. Moderate to extensive fecal retention with sigmoid volvulus resulting in moderate upstream colonic distention. 2. No pneumatosis or pneumoperitoneum. 3. Cholelithiasis. 4. Additional findings as above. ACT 112: Negative or not required by law. The above report was generated using voice recognition software. It may contain grammatical, syntax o r spelling errors. Electronically signed by: Jose Khoury M.D. 12/23/2021 8:30 AM
--- NOTE | 2021-12-23 09:26 | Gastrointestinal Consultation ---
Date of Consultation December 23, 2021 Assessment & Plan (1) Sigmoid volvulus: (2) Left lower quadrant abdominal tenderness: 1. NPO for now. 2. Colonoscopy with Dr. Yee this morning for colonic decompression. 3. Patient will be arranged for soon outpatient follow up with Dr. Hernandez of olorectal surgery. 4. Fleet enema x 1 now. 5. Further recommendations pending results of testing. Thank you for allowing us to participating in the care of this pleasant patient. If you have any questions or concerns, please do not hesitate to contact us. Supervising Physician Co-Signing Physician Notes I personally evaluated the patient and agree with the findings as documented by YESSY Gonzalez Exam: Constitutional: WD/WN, vitals as above General: EOM intact bilaterally Neck: normal visual inspection Respiratory: normal respiratory effort, lungs clear to auscultation Cardiovascular: RRR, no murmur, no edema Gastrointestinal: abdomennormal to inspection, nondistended, soft, nontender, no hepatosplenomegaly Musculoskeletal: no cyanosis, head normal to inspection Skin: no rashes, warm and dry Neurologic: moves all extremities Psychiatric: A and O x3, euthymic affect proceed with colonoscopy. risks/benefits and procedure discussed with patient, who agrees to proceed History of Present Illness Reason for Consultation: Recurrent Volvulus Requesting Physician: Dr. Lugo Attending Physician: Joe Armstrong MD History of Present Illness Patient is a very pleasant 61 y.o. male with a history of sigmoid volvulus s/p decompression in September [place] [address] Yee admitted with constipation and abnormal CT imaging suggestive of recurrent sigmoid volvulus and colonic dilation with associated obstruction. He reports he was doing well from a GI s tanoint with treatment of his constipation on Linzess 145 mcg daily. Bms varied in consistency but he was reportedly having daily bms. Yesterday, however, he developed lower abdominal pressure and did not pass a bm. Due to history, he was concerned and presented to the ER. Serum lactate was normal at 0.4. Denies any vomiting, but mild nausea yesterday which has resolved. No abdominal pain. No fevers or chills. No bloating. Currently, he is passing flatus and small amount of liquid stool. As an outpatient, he has been evaluated [place]. [place] [facility] [place]. Elective resection has been in consideration. Allergies Allergy/AdvReac Type Severity Reaction Status Date / Time No Known Drug Allergies Allergy . 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 Beliefs That Will Affect Care: None Current Living Situation: Spouse Feels Safe at Home: Yes Assistive Devices: None Review of Systems Review of Systems: All systems reviewed & are unremarkable except as noted in HPI & below Physical Exam Constitutional: WD/WN, vitals as above Eyes: EOM intact bilaterally Neck: normal appearance Respiratory: normal respiratory effort, lungs clear to auscultation Cardiovascular: Rate/Rhythm: regular rate and regular rhythm Heart Sounds: no gallop and no murmur Gastrointestinal (Abdomen): Inspection/Auscultation: normal bowel sounds; abdomen not distended Percussion/Palpation: + abdomen tender (left lower quadrant) and abdomen soft Musculoskeletal: Extremities: no cyanosis no lower extremity edema Skin: no rashes, warm and dry Neurologic: moves all extremities Psychiatric: A+Ox3, euthymic affect Results & Data ([facility]) Vital Signs (Past 12 Hours) Vital Signs Temp Pulse Resp BP Pulse Ox 12/23/21 07:24 36.8 C 52 L 18 119/63 97 12/23/21 04:30 36.7 C 55 L 15 118/70 96 12/23/21 03:00 57 L 16 119/71 96 12/22/21 23:48 98 12/22/21 23:47 55 L 18 126/71 98 Diagnostic Findings Laboratory Results WBC 6.85 K/uL (4.8-10.8) 12/22/21 22:04 RBC 4.60 M/uL (4.7-6.1) L 12/22/21 22:04 Hgb 15.3 g/dL (14.0-18.0) 12/22/21 22: Hct 45.0 % (42-52) 12/22/21 22:04 MCV 97.8 fL (80-100) 12/22/21 22: MCH 33.3 pg (25-34) 12/22/21: MCHC 34.0 g/dL (32-36) 12/22/21 22:04 RDW Std Deviation 46.6 fL (36.4-46.3) H 12/22/21: RDW Coeff of Jeffery 13.0 % (11.5-14.5) 12/22/21: Plt Count 230 K/uL (130-400) 12/22/21: MPV 11.0 fL (7.4-10.4) H 12/22/21: Immature Gran % (Auto) 0.1 % 12/22/21: Neut % (Auto) 66.4 % 12/22/21: Lymph % (Auto) 19.7 % 12/22/21 22: [place] % (Auto) 11.5 % 12/22/21: Eos % (Auto) 1.9 % 12/22/21 22: Baso % (Auto) 0.4 % 12/22/21: Neut # (Auto) 4.54 K/uL (1.4-6.5) 12/22/21: Lymph # (Auto) 1.35 K/uL (1.2-3.4) 12/22/21: [place] # (Auto) 0.79 K/uL (0.11-0.59) H 12/22/21: Eos # (Auto) 0.13 K/uL (0-0.5) 12/22/21: Baso # (Auto) 0.03 K/uL (0-0.2) 12/22/21: Immature Gran # (Auto) 0.01 K/uL (0.00-0.02) 12/22/21 22: Sodium 134 mmol/L (136-145) L 12/22/21 22:04 Potassium 3.7 mmol/L (3.5-5.1) 12/22/21 22:04 Chloride 98 mmol/L (98-107) 12/22/21 22:04 Carbon Dioxide 29 mmol/L (21-32) 12/22/21 22:04 Anion Gap 7 (3-11) 12/22/21 22:04 BUN 13 mg/dl (6-23) 12/22/21 22:04 Creatinine 0.81 mg/dl (0.6-1.4) 12/22/21 22:04 Est Cr Clr Drug Dosing 90.3 ml/min 12/22/21 22:04 Est GFR ( Amer) 112.0 ml/min 12/22/21 22:04 Est GFR (Non-Af Amer) 96.6 ml/min 12/22/21 22:04 BUN/Creatinine Ratio 16.0 (10-20) 12/22/21 22:04 Glucose 96 mg/dl (70-99(Fasting)) 12/22/21 22:04 Lactate 0.4 mmol/L (0.4-2.0) 12/23/21 01:38 Calcium 8.9 mg/dl (8.5-10.1) 12/22/21 22:04 Total Bilirubin 1.3 mg/dl (0.2-1.0) H 12/22/21 22:04 AST 34 U/L (13-39) 12/22/21 22:04 ALT 22 U/L (7-52) 12/22/21 22:04 Alkaline Phosphatase 49 U/L (34-104) 12/22/21 22:04 Total Protein 7.5 gm/dl (6.0-8.3) 12/22/21 22:04 Albumin 4.6 gm/dl (3.4-5.0) 12/22/21 22:04 Globulin 2.9 gm/dl (2.5-4.0) 12/22/21 22:04 Albumin/Globulin Ratio 1.6 (0.9-2) 12/22/21 22:04 Lipase 58 U/L (11-82) 12/22/21 22:04 Urine Color Yellow 12/22/21 22:04 Urine Appearance Clear (Clear) 12/22/21 22:04 Urine pH 6.5 (4.5-7.5) 12/22/21 22:04 Ur Specific [place] 1.005 (1.000-1.030) 12/22/21 22:04 Urine Protein Negative (Negative) 12/22/21 22:04 Urine Glucose (UA) Negative (Negative) 12/22/21 22:04 Urine Ketones Negative (Negative) 12/22/21 22:04 Urine Blood Negative (Negative) 12/22/21 22:04 Urine Nitrite Negative (Negative) 12/22/21 22:04 Urine Bilirubin Negative (Negative) 12/22/21 22:04 Urine Urobilinogen Negative (Negative) 12/22/21 22:04 Ur Leukocyte Esterase Negative (Negative) 12/22/21 22:04 SARS-CoV-2, RNA, NAAT NEGATIVE (NEGATIVE) 12/23/21 01:36 Impressions Abdomen/Pelvis CT 12/22/21 22:[address] WITH IV CONTRAST CT DOSE: 294.71 mGy.cm HISTORY: Acute generalized abdominal pain with constipation Constipation, abd pain, hx of sigmoid volv. TECHNIQUE: Multiaxial CT images of the abdomen and pelvis were performed following the IV administration of 95 cc of Optiray, A dose lowering technique was utilized adhering to the principles of ALARA. COMPARISON STUDY: CT abdomen and pelvis 09/26/2021, 11/20/2020. FINDINGS: The imaged inferior cardiac chambers are unremarkable. Clear lung bases. No pneumatosis or pneumoperitoneum. Heterogeneous 3.5 cm enhancing splenic mass is stable dating back to 11/20/2020 exam. Unremarkable pancreas, adrenal glands and liver. Cholelithiasis. Symmetric enhancement of the kidneys. There is no hydronephrosis. Mild urinary bladder distention with prostamegaly. Atherosclerosis of the aorta without aneurysm. There is no adenopathy. Swirling of the mesentery redemonstrated with associated sigmoid volvulus. Upstream gaseous distention of the colon measures up to approximately 7.8 cm transversely. Transition point noted on image 251 series 3. Moderate fecal retention. A dilated loop of small bowel measuring up to 3.4 cm is noted within the lower pelvis may represent concomitant developing small bowel obstruction. Several air and fluid-filled loops of small bowel within the lower abdomen and pelvis. The appendix is not definitively seen. Unremarkable soft tissues. No acute fracture. IMPRESSION: 1. Moderate to extensive fecal retention with sigmoid volvulus resulting in moderate upstream colonic distention. 2. No pneumatosis or pneumoperitoneum. 3. Cholelithiasis. 4. Additional findings as above. ACT 112: Negative or not required by law. The above report was generated using voice recognition software. It may contain grammatical, syntax or spelling errors. Electronically signed by: Jose Khoury M.D. 12/23/2021 8:30 AM Chest X-Ray 12/23/21 00:31 SINGLE VIEW CHEST CLINICAL HISTORY: Preoperative examination. Sigmoid volvulus. FINDINGS: An AP, portable, upright chest radiograph is compared to study dated 09/26/2021. The heart is top normal for projection. The mediastinal contour is within normal limits. There is mild chronic elevation of the left hemidiaphragm. The lungs and pleural spaces are clear. No pneumothorax is seen. The bony thorax is grossly intact. Gaseous distention of the colon as noted below the diaphragm. IMPRESSION: No active disease in the chest. ACT 112: Negative or not required by law. Electronically signed by: Lloyd Crook M.D. 12/23/2021 8:15 AM PG Care Time/CCT Total # of Minutes Spent Total Time Spent with Patient: Total time spent is greater than 50% in coordination of care (as documented) at patient's floor/unit and/or counseling patient: Coding Level of Care Code 55262 Inpt Consult Level 4 Diagnoses Sigmoid volvulus K56.2 Left lower quadrant abdominal tenderness R10.814
[2021-12-23] MEDS ORDERED: SOD PHOSPHATE/SOD BIPHOSPHATE ENEMA 132 ML BTL PR STA ×2 (09:42→12:19)
[2021-12-23] MEDS ORDERED: PROPOFOL IV EMULSION 10 MG/ML 20 ML VIAL IV ONE (10:38)
--- NOTE | 2021-12-23 11:16 | Anesthesiology Consultation ---
Date of Service December 23, 2021 Assessment & Plan (1) Encounter for pre-operative examination: Chart Review Chart Review: Acceptable Risk for Surgery and Patient NOT seen in Pre Admission Testing Consults Requested none History Surgery Operation Date: 12/23/21 16:30 Proposed Procedures p Colonoscopy Dr. Nakia Yee MD Height/Weight Height: 5 ft 9 in Weight: 65.8 kg Allergies Allergy/AdvReac Type Severity Reaction Status Date / Time No Known Drug Allergies Allergy . Verified 12/22/21 22:28 Medications Home Medications Medication Instructions Recorded Confirmed Last Taken linaclotide 145 mcg capsule 145 mcg PO DAILY #30 cap 09/27/21 12/22/21 Unknown (Linzess) cholecalciferol (vitamin D3) 25 25 mcg PO DAILY 12/22/21 12/22/21 Unknown mcg (1,000 unit) tablet Active Medications Generic Name Dose Route Start Last Admin Trade Name Freq PRN Reason Stop Dose Admin Famotidine 20 mg/ Syringe 5 mls @ 2.5 mls/min 12/23/21 06:00 12/23/21 06:08 IV 01/22/22 05:59 2.5 mls/min Q12H KATIA Administration Lactated Ringer's 1,000 mls @ 80 mls/hr 12/23/21 04:23 12/23/21 04:37 Lr IV 01/22/22 04:22 80 mls/hr .[id number] KATIA Administration NPO Date Last Intake of Fluids: 12/22/21 Time Last Intake of Fluids: 20:30 Date Last Intake of Solids: 12/22/21 Time Last Intake of Solids: 12:00 Past Medical History Medical History Irritable bowel syndrome Sigmoid volvulus Social History Smoking Status: Never smoker Hx Alcohol Use: Yes Alcohol type: beer alcohol intake frequency: 0-2 drinks per day Hx Substance Use: No Physical Exam Vital Signs Last Vital Signs Temp 36.9 C 12/23/21 11:12 Pulse 51 L 12/23/21 11:12 Resp 18 12/23/21 11:12 BP 124/65 12/23/21 11:12 Pulse Ox 98 12/23/21 11:12 Testing Laboratory Results 12/22/21 22:04 12/22/21 22:04 Urine Color Yellow 12/22/21 22: Urine Appearance Clear (Clear) 12/22/21 22: Urine pH 6.5 (4.5-7.5) 12/22/21 22: Ur Specific [place] 1.005 (1.000-1.030) 12/22/21 22: Urine Protein Negative (Negative) 12/22/21 22: Urine Glucose (UA) Negative (Negative) 12/22/21: Urine Ketones Negative (Negative) 12/22/21: Urine Nitrite Negative (Negative) 12/22/21 22: Ur Leukocyte Esterase Negative (Negative) 12/22/21:
[2021-12-23] MEDS ORDERED: MINERAL OIL 30 ML UDC ONE (11:50)
[2021-12-23] MEDS ORDERED: ePHEDrine sulfate 50 MG/ML AMP ONE (12:09)
--- NOTE | 2021-12-23 12:13 | GI REPORT ---
Patient Name: Gerald Del Cid Procedure Date: 12/23/2021 11:43 AM Date of : 1960 Admit Type: Inpatient Age: 61 Gender: Male Attending MD: Franck Yee MD Procedure: Colonoscopy Providers: Franck Yee MD Referring MD: Joe Armstrong Indications: Abnormal CT of the GI tract, Suspected volvulus Medicines: Monitored Anesthesia Care Complications: No immediate complications. Estimated blood loss: None. Estimated Blood Loss: Estimated blood loss: none. Procedure: Pre-Anesthesia Assessment: - Prior Anticoagulants: The patient has taken no previous anticoagulant or antiplatelet agents. - ASA Grade Assessment: III - A patient with severe systemic disease. After I obtained informed consent, the scope was passed under direct vision. Throughout the procedure, the patient's blood pressure, pulse, and oxygen saturations were monitored continuously. The Colonoscope was introduced through the anus with the intention of advancing to the cecum. The scope was advanced to the sigmoid colon before the procedure was aborted. Medications were given. The patient tolerated the procedure well. The colonoscopy was performed with moderate difficulty due to poor bowel prep with stool present. Findings: A large amount of solid stool was found in the recto-sigmoid colon and in the sigmoid colon, precluding visualization. unable to advance past sigmoid colon as a result of the large stool impaction, procedure aborted. Estimated blood loss: none. Impression: - Stool in the recto-sigmoid colon and in the sigmoid colon. - No specimens collected. Recommendation: - Return patient to [facility] for [facility] care. - NPO today except for prep. -start golytely 4L prep now -give fleet enema x 1 tomorrow morning -repeat colonoscopy tomorrow Franck Yee MD 12/23/2021 12:12:37 PM This report has been signed electronically. Note Initiated On: 12/23/2021 11:43 AM Number of Addenda: 0 I attest to the content of the Intraoperative Record and orders documented therein, exceptions below {[id number]}
--- NOTE | 2021-12-23 12:27 | Anesthesiology Progress Note ---
Date of Service December 23, 2021 Anesthesia Post Procedure Vital Signs Vital Signs: Temp Pulse Pulse Resp BP BP Pulse Ox 12/23/21 12:12 54 L 12 114/54 L 98 12/23/21 11:12 36.9 C 51 L 18 124/65 98 12/23/21 07:24 36.8 C 52 L 18 119/63 97 12/23/21 04:30 36.7 C 55 L 15 118/70 96 12/23/21 03:00 57 L 16 119/71 96 12/22/21 23:48 98 12/22/21 23:47 55 L 18 126/71 98 12/22/21 21:10 36.5 C 60 16 155/85 H 96 Pain Intensity Right Abdomen: Pain Intensity: 2 Transfer of Care Handoff Completed per policy Notes Mental Status: alert / awake / arousable Patient Amnestic to Procedure: Yes Nausea / Vomiting: adequately controlled Pain: adequately controlled Airway Patency, RR, SpO2: stable & adequate BP & HR: stable & adequate Hydration State: stable & adequate Anesthetic Complications: no major complications apparent and Pt Satisfied with anesthetic care
[2021-12-23] MEDS ORDERED: LAVAGE SOLUTION 4000ML PO ONE (13:00)
--- NOTE | 2021-12-23 14:11 | Electrocardiogram Report ---
Test Reason : Blood Pressure : / mmHG Vent. Rate : 055 BPM Atrial Rate : 055 BPM P-R Int : 148 ms QRS Dur : 116 ms QT Int : 452 ms P-R-T Axes : 000 113 -07 degrees QTc Int : 432 ms Sinus bradycardia Right axis deviation Abnormal QRS-T angle, consider primary T wave abnormality Abnormal ECG When compared with ECG of 22-AUG-2007 16:51, QRS axis Shifted right ST no longer elevated in Anterior leads Inverted T waves have replaced nonspecific T wave abnormality in Inferior leads T wave amplitude has decreased in Anterolateral leads Confirmed by Ramos Baxter ([id number]) on 12/23/2021 2:10:40 PM Referred By: REFERRED SELF Confirmed By:Ramos Baxter
--- NOTE | 2021-12-23 15:58 | Surgery Consultation ---
Date of Consultation December 23, 2021 Assessment & Plan (1) Sigmoid volvulus: pt is a 61 year-old male who presents with one day history abdominal pain, CT scan- sigmoid volvulus, Plan, base on H/P, no emergent surgery indication now, pt will have Colonoscopy tomorrow, pt has contacted his colorectal surgeon, continue treatment, will F/U Supervising Physician Co-Signing Physician Notes I personally evaluated the patient and agree with the findings as documented by YESSY Gonzalez Exam: Constitutional: WD/WN, vitals as above General: EOM intact bilaterally Neck: normal visual inspection Respiratory: normal respiratory effort, lungs clear to auscultation Cardiovascular: RRR, no murmur, no edema Gastrointestinal: abdomennormal to inspection, nondistended, soft, nontender, no hepatosplenomegaly Musculoskeletal: no cyanosis, head normal to inspection Skin: no rashes, warm and dry Neurologic: moves all extremities Psychiatric: A and O x3, euthymic affect proceed with colonoscopy. risks/benefits and procedure discussed with patient, who agrees to proceed History of Present Illness Reason for Consultation: sigmoid volvulus Requesting Physician: Joe Armstrong MD Attending Physician: Joe Armstrong MD History of Present Illness History of Present Illness Patient is a very pleasant 61 y.o. male with a history of sigmoid volvulus s/p decompression in September [place] [address] Yee admitted with constipation and abnormal CT imaging suggestive of recurrent sigmoid volvulus and colonic dilation with associated obstruction. He reports he was doing well from a GI standpoint with treatment of his constipation on Linzess 145 mcg daily. Bms varied in consistency but he was reportedly having daily bms. Yesterday, however, he developed lower abdominal pressure and did not pass a bm. Due to history, he was concerned and presented to the ER. Serum lactate was normal at 0.4. Denies any vomiting, but mild nausea yesterday which has resolved. No abdominal pain. No fevers or chills. No bloating. Currently, he is passing flatus and small amount of liquid stool. As an outpatient, he has been evaluated by Dr. Hernandez of [facility] colorectal surgery. Elective resection has been in consideration. I ( Immanuel Cameron MD ) got a call for consult sigmoid volvulus, I reviewed pt's H/P, labs, CT scan with pt, pt passed some stanley. passed BM yesterday, now pt has no abdominal pain, no nausea, no vomiting, no fever. Allergies Allergy/AdvReac Type Severity Reaction Status Date / Time No Known Drug Allergies Allergy . Verified 12/22/21 22:28 Home Medications Medication Instructions Recorded Confirmed Type linaclotide 145 mcg capsule 145 mcg PO DAILY #30 cap 09/27/21 2 Rx (Linzess) cholecalciferol (vitamin D3) 25 25 mcg PO DAILY 12/22/21 12/22/21 History mcg (1,000 unit) tablet Patient History Medical History Irritable bowel syndrome Sigmoid volvulus Social History Smoking Status: Never smoker Hx Alcohol Use: Yes Alcohol type: beer Hx Substance Use: No Preferred Language: Maltese Communication Ability: Effective Team Driver Required: No Beliefs That Will Affect Care: None Current Living Situation: Spouse Feels Safe at Home: Yes Assistive Devices: None Review of Systems Review of Systems: All systems reviewed & are unremarkable except as noted in HPI & below Allergies Allergy/AdvReac Type Severity Reaction Status Date / Time No Known Drug Allergies Allergy . Verified 12/22/21 22:28 Home Medications Medication Instructions Recorded Confirmed Type linaclotide 145 mcg capsule 145 mcg PO DAILY #30 cap 09/27/21 12/22/21 Rx (Linzess) cholecalciferol (vitamin D3) 25 25 mcg PO DAILY 12/22/21 12/22/21 History mcg (1,000 unit) tablet Patient History Medical History Irritable bowel syndrome Sigmoid volvulus Social History Smoking Status: Never smoker Hx Alcohol Use: Yes Alcohol type: beer Hx Substance Use: No Preferred Language: Maltese Communication Ability: Effective Team Driver Required: No Beliefs That Will Affect Care: None Current Living Situation: Spouse Feels Safe at Home: Yes Assistive Devices: None Review of Systems Constitutional: as per Subjective / HPI Eyes: as per Subjective / HPI Respiratory: as per Subjective / HPI Cardiovascular: as per Subjective / HPI Gastrointestinal: sigmoid volvulus in 09/2021, IBS, constipation Genitourinary: + as per Subjective / HPI Musculoskeletal: as per Subjective / HPI Neurologic: as per Subjective / HPI Endocrine: as per Subjective / HPI Hematologic / Lymphatic: as per Subjective / HPI Physical Exam Constitutional: WD/WN, vitals as above Eyes: PERRL, conjunctivae normal, anicteric sclerae Neck: trachea midline, no thyromegaly Respiratory: normal respiratory effort, lungs clear to auscultation Cardiovascular: RRR, no murmur, no edema Gastrointestinal (Abdomen): soft, NT, ND, BS + Musculoskeletal: no cyanosis or clubbing, extremities motor strength 5/5 Neurologic: patellar DTR's 2+ bilat, sensation intact Psychiatric: A+Ox3, euthymic affect Results & Data ([facility]) Vital Signs (Past 12 Hours) Vital Signs Temp Pulse Resp BP Pulse Ox 12/23/21 14:03 36.3 C L 53 L 18 111/68 99 12/23/21 12:44 54 L 16 110/64 100 12/23/21 12:27 57 L 16 124/65 97 12/23/21 12:12 54 L 12 114/54 L 98 12/23/21 11:12 36.9 C 51 L 18 124/65 98 12/23/21 07:24 36.8 C 52 L 18 119/63 97 12/23/21 04:30 36.7 C 55 L 15 118/70 96 Laboratory Results Abnormal lab results 12/22/21 12/22/21 Range/Units 22:04 22:04 RBC 4.60 L (4.7-6.1) M/uL RDW Std Deviation 46.6 H (36.4-46.3) fL MPV 11.0 H (7.4-10.4) fL [place] # (Auto) 0.79 H (0.11-0.59) K/uL Sodium 134 L (136-145) mmol/L Total Bilirubin 1.3 H (0.2-1.0) mg/dl Diagnostic Findings ABDOMEN AND PELVIS CT WITH IV CONTRAST CT DOSE: 294.71 mGy.cm HISTORY: Acute generalized abdominal pain with constipation Constipation, abd pain, hx of sigmoid volv. TECHNIQUE: Multiaxial CT images of the abdomen and pelvis were performed following the IV administration of 95 cc of Optiray, A dose lowering technique was utilized adhering to the principles of ALARA. COMPARISON STUDY: CT abdomen and pelvis 09/26/2021, 11/20/2020. FINDINGS: The imaged inferior cardiac chambers are unremarkable. Clear lung bases. No pneumatosis or pneumoperitoneum. Heterogeneous 3.5 cm enhancing splenic mass is stable dating back to 11/20/2020 exam. Unremarkable pancreas, adrenal glands and liver. Cholelithiasis. Symmetric enhancement of the kidneys. There is no hydronephrosis. Mild urinary bladder distention with prostamegaly. Atherosclerosis of the aorta without aneurysm. There is no adenopathy. Swirling of the mesentery redemonstrated with associated sigmoid volvulus. Upstream gaseous distention of the colon measures up to approximately 7.8 cm transversely. Transition point noted on image 251 series 3. Moderate fecal retention. A dilated loop of small bowel measuring up to 3.4 cm is noted within the lower pelvis may represent concomitant developing small bowel obstruction. Several air and fluid-filled loops of small bowel within the lower abdomen and pelvis. The appendix is not definitively seen. Unremarkable soft tissues. No acute fracture. IMPRESSION: 1. Moderate to extensive fecal retention with sigmoid volvulus resulting in moderate upstream colonic distention. 2. No pneumatosis or pneumoperitoneum. 3. Cholelithiasis. 4. Additional findings as above.
[2021-12-24] MEDS: FAMOTIDINE 20 MG in SYRINGE 3 ML IV SCH ×2 (06:09→17:31)
[2021-12-24] MEDS: LACTATED RINGER'S 1,000 ML IV SCH ×2 (06:09→22:07)
[2021-12-24 06:13] LABS: Basophils # (auto) 0.02 K/uL (0-0.2); Basophils % (auto) 0.4 %; Eosinophils # (auto) 0.14 K/uL (0-0.5); Eosinophils % (auto) 2.8 %; Hematocrit (blood only) 42.1 % (42-52); Hemoglobin 13.9 g/dL (14.0-18.0); Immature Granulocytes # (auto) 0.01 K/uL (0.00-0.02); Immature Granulocytes % (auto) 0.2 %; Lymphocytes # (auto) 0.94 K/uL (1.2-3.4); Mean Corpuscular Hemoglobin 32.7 pg (25-34); Mean Corpuscular Volume 99.1 fL (80-100); Mean Platelet Volume 10.8 fL (7.4-10.4); Monocytes # (auto) 0.48 K/uL (0.11-0.59); Monocytes % (auto) 9.7 %; Neutrophils # (auto) 3.37 K/uL (1.4-6.5); Neutrophils % (auto) 67.9 %; Platelet Count 185 K/uL (130-400); RDW Coefficient of Variation 13.1 % (11.5-14.5); RDW Standard Deviation 47.6 fL (36.4-46.3); Red Blood Count 4.25 M/uL (4.7-6.1); White Blood Count 4.96 K/uL (4.8-10.8)
[2021-12-24 06:40] LABS: Albumin Globulin Ratio 1.6 (0.9-2); Albumin Level 3.6 gm/dl (3.4-5.0); BUN Creatinine Ratio 15.1 (10-20); Bilirubin,Total 2.5 mg/dl (0.2-1.0); Calcium 8.2 mg/dl (8.5-10.1); Est GFR (African American) 109.2 ml/min; Est GFR (Non-African American) 94.3 ml/min; Globulin 2.2 gm/dl (2.5-4.0); Potassium 4.1 mmol/L (3.5-5.1); Total Protein 5.8 gm/dl (6.0-8.3)
--- NOTE | 2021-12-24 09:27 | History & Physical Bridge Note ---
Date of Service December 24, 2021 History & Physical Bridge Note I have examined the patient, reviewed the History & Physical and in the interval since the performance of the History & Physical I have noted the following changes of clinical significance: patient has been passing stools, some are "murky" some as clear liquid. No abdominal pain, n/v, or rectal bleeding. +weakness. No dizziness. PE: A&Ox3. RRR without M/R/G. Lungs CTA bilaterally. Abdomen soft, nontender. Normal bowel sounds. A/P: Sigmoid volvulus. * NPO for now. * Fleet enema x1 today. * Colonoscopy for attempt at decompression. * Further recommendations pending results of testing.
--- NOTE | 2021-12-24 09:43 | Surgery Progress Note ---
Date of Service December 24, 2021 Assessment & Plan (1) Sigmoid volvulus: Plan: pt is a 61 year-old male who presentd to ED with abdominal pain and CT scan showing evidence of recurrent sigmoid volvulus. Scheduled for colonoscopy with decompression today by GI undergoing bowel prep currently AVSS no abdominal pain, no abdominal distention + bowel function with prep No emergent indication for surgical intervention as he is not having any pain and having bowel function with bowel prep. Potentially the volvulus has self resolved but would recommend colonoscopy for evaluation today and if needed decompression. He has already seen and been followed by colorectal surgeon. He should follow-up with his colorectal surgeon to discuss elective surgical resection. Our services signing off, please call with any questions/concerns. Dr. Cameron has seen and examined pt, agrees with above. Admission and Anticipated Discharge Date Admission Date: December 23, 2021 Subjective feeling good no abdominal pain taking bowel prep which is working and having liquid bowel movements, able to pass gas as well does not feel bloated colonoscopy is not going to be until 5 pm today per patient Physical Exam Constitutional: WD/WN, vitals as above no acute distress and not ill appearing Neck: normal visual inspection and trachea midline Respiratory: normal respiratory effort; no respiratory distress Gastrointestinal (Abdomen): Inspection/Auscultation: abdomen normal to inspection; abdomen not distended Percussion/Palpation: abdomen soft; abdomen nontender, no guarding and abdomen not rigid Skin: no rashes, warm and dry Psychiatric: A+Ox3, euthymic affect Results & Data ([facility]) Vital Signs (Past 12 Hours) Vital Signs Temp Pulse Pulse Resp BP Pulse Ox 12/24/21 07:40 36.4 C L 60 14 104/62 98 12/23/21 22:29 36.5 C 53 L 18 117/69 96 Laboratory Results 12/24/21 12/24/21 Range/Units 05:54 05:54 WBC 4.96 (4.8-10.8) K/uL RBC 4.25 L (4.7-6.1) M/uL Hgb 13.9 L (14.0-18.0) g/dL Hct 42.1 (42-52) % MCV 99.1 (80-100) fL MCH 32.7 (25-34) pg MCHC 33.0 (32-36) g/dL RDW Std Deviation 47.6 H (36.4-46.3) fL RDW Coeff of Jeffery 13.1 (11.5-14.5) % Plt Count 185 (130-400) K/uL MPV 10.8 H (7.4-10.4) fL Immature Gran % (Auto) 0.2 % Neut % (Auto) 67.9 % Lymph % (Auto) 19.0 % [place] % (Auto) 9.7 % Eos % (Auto) 2.8 % Baso % (Auto) 0.4 % Neut # (Auto) 3.37 (1.4-6.5) K/uL Lymph # (Auto) 0.94 L (1.2-3.4) K/uL [place] # (Auto) 0.48 (0.11-0.59) K/uL Eos # (Auto) 0.14 (0-0.5) K/uL Baso # (Auto) 0.02 (0-0.2) K/uL Immature Gran # (Auto) 0.01 (0.00-0.02) K/uL Sodium 137 (136-145) mmol/L Potassium 4.1 (3.5-5.1) mmol/L Chloride 105 (98-107) mmol/L Carbon Dioxide 20 L (21-32) mmol/L Anion Gap 12 H (3-11) BUN 13 (6-23) mg/dl Creatinine 0.86 (0.6-1.4) mg/dl Est Cr Clr Drug Dosing 85.0 ml/min Est GFR ( Amer) 109.2 ml/min Est GFR (Non-Af Amer) 94.3 ml/min BUN/Creatinine Ratio 15.1 (10-20) Glucose 59 L (70-99(Fasting)) mg/dl Calcium 8.2 L (8.5-10.1) mg/dl Total Bilirubin 2.5 H D (0.2-1.0) mg/dl AST 28 (13-39) U/L ALT 17 (7-52) U/L Alkaline Phosphatase 43 (34-104) U/L Total Protein 5.8 L D (6.0-8.3) gm/dl Albumin 3.6 (3.4-5.0) gm/dl Globulin 2.2 L (2.5-4.0) gm/dl Albumin/Globulin Ratio 1.6 (0.9-2)
[2021-12-24] MEDS ORDERED: SOD PHOSPHATE/SOD BIPHOSPHATE ENEMA 132 ML BTL PR ONE (12:30)
--- NOTE | 2021-12-24 12:40 | Anesthesiology Consultation ---
Date of Service December 24, 2021 Assessment & Plan (1) Encounter for pre-operative examination: Chart Review Chart Review: Acceptable Risk for Surgery History Surgery Operation Date: 12/23/21 16:30 Proposed Procedures p Colonoscopy Dr. Nakia Yee MD Operation Date: 12/24/21 17:00 Proposed Procedures p Colonoscopy Dr. Nakia Yee MD Height/Weight Height: 5 ft 9 in Weight: 65.8 kg Allergies Allergy/AdvReac Type Severity Reaction Status Date / Time No Known Drug Allergies Allergy . Verified 12/22/21 22:28 Medications Home Medications Medication Instructions Recorded Confirmed Last Taken linaclotide 145 mcg capsule 145 mcg PO DAILY #30 cap 09/27/21 12/22/21 Unknown (Linzess) cholecalciferol (vitamin D3) 25 25 mcg PO DAILY 12/22/21 12/22/21 Unknown mcg (1,000 unit) tablet Active Medications Generic Name Dose Route Start Last Admin Trade Name Freq PRN Reason Stop Dose Admin Famotidine 20 mg/ Syringe 5 mls @ 2.5 mls/min 12/23/21 06:00 12/24/21 06:09 IV 01/22/22 05:59 2.5 mls/min Q12H KATIA Administration Lactated Ringer's 1,000 mls @ 80 mls/hr 12/23/21 04:23 12/24/21 12:36 Lr IV 01/22/22 04:22 80 mls/hr .[id number] KATIA Infusion Ondansetron HCl 4 mg 12/23/21 04:23 12/24/21 06:11 Ondansetron Inj 2 Mg/Ml 2 Ml Vial IV 01/22/22 04:22 4 mg Q6H PRN Administration Nausea NPO Date Last Intake of Fluids: 12/22/21 Time Last Intake of Fluids: 20:30 Date Last Intake of Solids: 12/22/21 Time Last Intake of Solids: 12:00 Past Medical History Medical History Irritable bowel syndrome Sigmoid volvulus Past Surgical History Surgical History (Updated 12/24/21 @ 12:39 by Danyel Skinner MD) Hx of colonoscopy Social History Smoking Status: Never smoker Hx Alcohol Use: Yes Alcohol type: beer alcohol intake frequency: 0-2 drinks per day Hx Substance Use: No Physical Exam Vital Signs Last Vital Signs Temp 36.4 C L 12/24/21 07:40 Pulse 60 12/24/21 07:40 Resp 14 12/24/21 07:40 BP 104/62 12/24/21 07:40 Pulse Ox 98 12/24/21 07:40 Testing Laboratory Results 12/24/21 05:54 12/24/21 05:54 Urine Color Yellow 12/22/21 22:04 Urine Appearance Clear (Clear) 12/22/21 22:04 Urine pH 6.5 (4.5-7.5) 12/22/21 22:04 Ur Specific [place] 1.005 (1.000-1.030) 12/22/21 22:04 Urine Protein Negative (Negative) 12/22/21 22:04 Urine Glucose (UA) Negative (Negative) 12/22/21 22:04 Urine Ketones Negative (Negative) 12/22/21 22:04 Urine Nitrite Negative (Negative) 12/22/21 22:04 Ur Leukocyte Esterase Negative (Negative) 12/22/21 22:04 Electrocardiogram Date: 12/23/21 Findings: + SB @ (55) Chest X-Ray Date: 12/23/21 Findings: + NAD
[2021-12-24] MEDS ORDERED: DEXTROSE 50% 50 ML SYRINGE IV ONE (13:48)
[2021-12-24] MEDS ORDERED: DEXTROSE 50% 50 ML SYRINGE IV STA (13:50)
[2021-12-24] MEDS ORDERED: PROPOFOL IV EMULSION 10 MG/ML 20 ML VIAL IV ONE (14:09)
[2021-12-24] MEDS ORDERED: LIDOCAINE 2% 2 ML VIAL/AMP(20MG/ML) INFIL ONE (14:09)
--- NOTE | 2021-12-24 15:10 | GI REPORT ---
Patient Name: Gerald Del Cid Procedure Date: 12/24/2021 1:58 PM Date of : 1960 Admit Type: Inpatient Age: 61 Gender: Male Attending MD: Franck Yee MD Procedure: Colonoscopy Providers: Franck Yee MD Referring MD: Billy Asencio Md Indications: Suspected volvulus Medicines: Monitored Anesthesia Care Complications: No immediate complications. Estimated blood loss: None. Estimated Blood Loss: Estimated blood loss: none. Procedure: Pre-Anesthesia Assessment: - Prior Anticoagulants: The patient has taken no previous anticoagulant or antiplatelet agents. - ASA Grade Assessment: III - A patient with severe systemic disease. After I obtained informed consent, the scope was passed under direct vision. Throughout the procedure, the patient's blood pressure, pulse, and oxygen saturations were monitored continuously. The scope was introduced through the anus and advanced to the cecum, identified by appendiceal orifice and ileocecal valve. The colonoscopy was performed without difficulty. The patient tolerated the procedure well. The quality of the bowel preparation was adequate to identify polyps 6 mm and larger in size. Findings: A volvulus with viable appearing mucosa was found in the sigmoid colon. Decompression of the volvulus was attempted and was successful, with complete decompression achieved. the colon was large and redundant, likely contributing to chronic constipation and volvulus. Impression: - Volvulus. Successful complete decompression achieved. - No specimens collected. Recommendation: - Return patient to [facility] for ongoing care. - Clear liquid diet today. advance diet as tolerated tomorrow morning if stable -increase linzess to 290 mcg daily -add miralax 17 g daily as well -follow up with colorectal surgery Dr. Hernandez as an outpatient for elective colonic resection Franck Yee MD 12/24/2021 3:10:11 PM This report has been signed electronically. Note Initiated On: 12/24/2021 1:58 PM Number of Addenda: 0 I attest to the content of the Intraoperative Record and orders documented therein, exceptions below {[id number]}
--- NOTE | 2021-12-24 15:21 | Anesthesiology Progress Note ---
Date of Service December 24, 2021 Anesthesia Post Procedure Vital Signs Vital Signs: Temp Pulse Pulse Resp BP Pulse Ox 12/24/21 13:54 37 C 63 63 18 112/60 99 12/24/21 07:40 36.4 C L 60 14 104/62 98 12/23/21 22:29 36.5 C 53 L 18 117/69 96 Pain Intensity Right Abdomen: Pain Intensity: 2 Transfer of Care Handoff Completed per policy Notes Mental Status: alert / awake / arousable Patient Amnestic to Procedure: Yes Nausea / Vomiting: adequately controlled Pain: adequately controlled Airway Patency, RR, SpO2: stable & adequate BP & HR: stable & adequate Hydration State: stable & adequate Anesthetic Complications: no major complications apparent
--- NOTE | 2021-12-24 20:38 | Hospitalist Progress Note ---
Date of Service December 24, 2021 Assessment & Plan (1) Sigmoid volvulus: Plan: Recurrent sigmoid volvulus- First episode resolved with decompressive colonoscopy during admission from 09/26-09/27/2021 Clear liquid diet s/p colonoscopy 12/24, advance diet as tolerated in the morning and will restart his Linzess + MiraLAX Appreciate gastroenterology decompression (2) Irritable bowel syndrome with constipation: Plan: Hold Linzess, restart in AM Admission and Anticipated Discharge Date Admission Date: December 23, 2021 Subjective Patient seen after colonoscopy. Tolerating clear liquid diet. No abdominal pain. Review of Systems Review of Systems: All systems reviewed & are unremarkable except as noted in Subjective Physical Exam Constitutional: WD/WN, vitals as above Respiratory: normal respiratory effort, lungs clear to auscultation Cardiovascular: RRR, no murmur, no edema Gastrointestinal (Abdomen): Inspection/Auscultation: normal bowel sounds Percussion/Palpation: abdomen soft; abdomen nontender Musculoskeletal: no cyanosis or clubbing, extremities motor strength 5/5 Skin: no rashes, warm and dry Neurologic: moves all extremities and awake; not confused Results & Data Results & Data ([facility]) Vital Signs (Past 12 Hours) Vital Signs Temp Pulse Pulse Resp BP Pulse Ox 12/24/21 16:00 36.7 C 62 14 118/70 97 12/24/21 15:35 71 14 112/62 100 12/24/21 15:20 62 14 108/63 100 12/24/21 15:05 74 18 94/46 L 100 12/24/21 13:54 37 C 63 63 18 112/60 99 PG Care Time/CCT Total # of Minutes Spent Total Time Spent with Patient: Total time spent is greater than 50% in coordination of care (as documented) at patient's floor/unit and/or counseling patient: Coding Level of Care Code 45857 Subseq Hosp Care Lvl 1 Diagnoses Sigmoid volvulus K56.2 Irritable bowel syndrome with constipation K58.1
[2021-12-25] MEDS: FAMOTIDINE 20 MG in SYRINGE 3 ML IV SCH (05:35)
[2021-12-25 06:00] LABS: Basophils # (auto) 0.02 K/uL (0-0.2); Basophils % (auto) 0.4 %; Eosinophils # (auto) 0.22 K/uL (0-0.5); Eosinophils % (auto) 4.6 %; Hematocrit (blood only) 39.7 % (42-52); Hemoglobin 13.2 g/dL (14.0-18.0); Lymphocytes # (auto) 1.37 K/uL (1.2-3.4); Lymphocytes % (auto) 28.8 %; Mean Corpuscular Hemoglobin 32.4 pg (25-34); Mean Corpuscular Hgb Conc 33.2 g/dL (32-36); Mean Corpuscular Volume 97.3 fL (80-100); Mean Platelet Volume 10.9 fL (7.4-10.4); Monocytes # (auto) 0.58 K/uL (0.11-0.59); Monocytes % (auto) 12.2 %; Neutrophils # (auto) 2.56 K/uL (1.4-6.5); Platelet Count 181 K/uL (130-400); RDW Coefficient of Variation 13.2 % (11.5-14.5); RDW Standard Deviation 47.1 fL (36.4-46.3); Red Blood Count 4.08 M/uL (4.7-6.1); White Blood Count 4.75 K/uL (4.8-10.8)
[2021-12-25 06:20] LABS: Albumin Globulin Ratio 1.7 (0.9-2); Albumin Level 3.3 gm/dl (3.4-5.0); BUN Creatinine Ratio 9.9 (10-20); Bilirubin,Total 2.4 mg/dl (0.2-1.0); Calcium 8.1 mg/dl (8.5-10.1); Creatinine Clr Calc Pharmacy 90.3 ml/min; Est GFR (Non-African American) 96.6 ml/min; Total Protein 5.3 gm/dl (6.0-8.3)
[2021-12-25] MEDS: LACTATED RINGER'S 1,000 ML IV SCH (10:13)
--- NOTE | 2021-12-25 11:50 | Discharge Summary ---
Date of Service December 25, 2021 Admission HPI Per Admitting Provider The patient is a 61-year-old male with a past medical history of sigmoid volvulus, and irritable bowel with constipation. He underwent decompressive colonoscopy on 09/26/2021 for sigmoid volvulus, and his symptoms and CT are suggestive of recurrence this evening. The on-call plastic roller has been consulted, and reports that they will be in in the morning to do decompressive colonoscopy. Principal Diagnosis Recurrent sigmoid Volvulus Discharge Exam Constitutional WD/WN, vitals as above Respiratory normal respiratory effort, lungs clear to auscultation Cardiovascular RRR, no murmur, no edema Gastrointestinal (Abdomen) Inspection/Auscultation: normal bowel sounds Percussion/Palpation: abdomen soft; abdomen nontender Skin no rashes, warm and dry Neurologic moves all extremities and awake; not confused Discharge Data Allergies Allergy/AdvReac Type Severity Reaction Status Date / Time No Known Allergies Allergy Verified 01/01/22 09:21 Consultations 12/23/21 01:22 ED Decision to Admit Stat 12/23/21 01:37 Consult Gastroenterology Stat 12/23/21 12:19 Consult General Surgery Routine Procedures Performed Operation Date: 12/23/21 16:30 Actual Procedures p Colonoscopy(Not Applicable) - Franck Yee MD Operation Date: 12/24/21 17:00 Actual Procedures p Colonoscopy - Franck Yee MD Ordered Studies 12/22/21 22:16 CT abd pelvis IV con only Urgent IMPRESSION: 1. Moderate to extensive fecal retention with sigmoid volvulus resulting in moderate upstream colonic distention. 2. No pneumatosis or pneumoperitoneum. 3. Cholelithiasis. 4. Additional findings as above. Hospital Course (1) Sigmoid volvulus: Gerald Del Cid is a 61 year old male admitted at [facility] from December 23 - 2021 due to constipation and abdominal pain. He was diagnosed with recurrent sigmoid volvulus requiring decompressive colonoscopy. Initial colonoscopy on 12/23 showed a large amount of stool in the recto-sigmoid junction precluding visualization, unable to advance past the sigmoid colon and procedure was aborted. Golytley prep was given and second decompressive colonoscopy performed on 12/24. He is now tolerating a regular diet. Recommended increasing dose of Linzess to 290mcg PO daily and taking MiraLAX 17g/day. He should follow up with his colorectal surgeon Dr Hernandez. (2) Irritable bowel syndrome with constipation: Total Time Total Time Spent Total Time Spent (In Minutes): 25 Discharge Plan Discharge Items Patient Disposition: Home - Self-Care Reason For Visit: RECURRENT SIGMOID VOLVULUS Discharge Diagnosis: Recurrent sigmoid Volvulus Activity: Resume your previous activity Non-emergency contact: Surgeon Call non-emergency contact if: you have any medication questions and your symptoms worsen Follow-up/Referrals: Ne Salas [Primary Care Provider] - Diet: Regular Addtl Attending Provider Instructions: You were admitted at [facility] from December 23 - 2021 due to constipation and abdominal pain. You were diagnosed with recurrent sigmoid volvulus requiring decompressive colonoscopy. Initial colonoscopy on 12/23 showed a large amount of stool in the recto-sigmoid junction precluding visualization, unable to advance past the sigmoid colon and procedure was aborted. Golytley prep was given and second decompressive colonoscopy performed on 12/24. You are now tolerating a regular diet. Recommend increasing your dose of Linzess to 290mcg PO daily and taking MiraLAX 17g/day. Please follow up with your colorectal surgeon Dr Hernandez. Pending Studies at Discharge: No Stand-Alone Forms: My [facility], Smoking Cessation Medications and DC Order Prescriptions: New polyethylene glycol 3350 [Miralax] 17 gram Powder In Packet 17 g PO DAILY Qty: 30 RF: 0 Linzess 290 mcg capsule 290 mcg PO DAILY Qty: 30 RF: 5 Continued cholecalciferol (vitamin D3) 25 mcg (1,000 unit) Tablet 25 mcg PO DAILY RF: 0 Discontinued Linzess 145 mcg capsule 145 mcg PO DAILY Qty: 30 RF: 0 Discharge Orders: Discharge Order (Routine); Ordered 12/25/21 Ordered By: Billy Keene/Other Patient Handouts: Low-Fiber Diet, How the Colon Works Admission Data Admit Date/Time: 12/23/21 02:09 Attending Provider: Billy Asencio Admit Provider: Jeo Armstrong Primary Care Provider: Ne Salas Other Providers: Franck Yee ; Immanuel Cameron Other Interventions: Discharge Summary Assessment (RN) Last Done: 12/25/21 16:27 Coding Level of Care Code D/C DAY MANAGEMENT >30 MINS Diagnoses Sigmoid volvulus K56.2 Irritable bowel syndrome with constipation K58.1
[2021-12-25] MEDS ORDERED: LINACLOTIDE 145 MCG CAPSULE PO SCH (12:00)
[2021-12-25] MEDS ORDERED: POLYETHYLENE (MIRALAX) 17 GM PACK PO SCH (12:00)
--- NOTE | 2022-01-01 14:13 | Coding Query ---
CODING QUERY To promote full compliance with coding requirements relating to patient care, provider participation is requested in all cases of cook larder uncertainty. Please assist us with the question(s) below: Coding Question(s): The 12/24 Colonoscopy documents, "the colon was large and redundant, likely contributing to chronic constipation and volvulus", and, "follow up with colorectal surgery Dr. Hernandez as an outpatient for elective colonic resection" and the Discharge Summary is currently in Draft status and documents under Sigmoid Volvulus, "Please follow up with your colorectal surgeon Dr Hernandez". Please specify below, in your clinical opinion: ( X ) the follow up with colorectal surgeon Dr Hernandez is regarding Sigmoid Volvulus and the colon being large and redundant, likely contributing to chronic constipation and volvulus. ( ) the follow up with colorectal surgeon Dr Hernandez is regarding only the Sigmoid Volvulus ( ) the follow up with colorectal surgeon Dr Hernandez is regarding Other: Please Specify Physician's Response(s): Thank you Merlyn Segura Principal Diagnosis: "that condition established after study, to be chiefly responsible for occasioning the admission of the patient to the hospital for care." Co-Existing Principal Diagnosis: "when two or more diagnoses equally meet the criteria for principal diagnosis as determined by the circumstances of admission, diagnostic work up, and/or therapy provided, and the Alphabetic Index, Tabular List, or another coding guideline does not provide sequencing direction, any one of the diagnoses may be sequenced first." "When the physician has documented what appears to be a current diagnosis in the body of the record, but has not included the diagnosis in the final diagnostic statement, the physician should be asked whether the diagnosis should be added." (Source Coding [facility] 2 QTR90. p3-4) CARRIE
== END 2021-12-25 17:32 | disposition home or self-care (01) | DRG 389 ==
LOC: ED 21:07 → 3E 12-23 02:09 → SUATTDRO 12-23 02:09 → 3E 12-23 04:22

== ENCOUNTER 2022-01-01 00:16 | Inpatient (IN) ==
--- NOTE | 2022-01-01 00:57 | Emergency Department Note ---
Impression & Plan Sigmoid volvulus Admit to [facility]ist with consult to GI for decompressive colonoscopy ED Provider Note NAME: JACOB YEH Jr AGE: 61 SEX: M ARRIVES VIA: Walk-In INFORMANT: Patient and his ED PROVIDER(S): Chelsey Maciel DO CHIEF COMPLAINT: Abdominal pain PLAN: Disposition: Admit to [facility] Condition: Stable MEDICAL DECISION MAKING: This is a 61-year-old male patient with a history of recurrent sigmoid volvulus who presents to the emergency department with 16 hours of abdominal pain concerning him for possible recurrent sigmoid volvulus. The patient has a history of significant constipation and 2 previous episodes of sigmoid volvulus that have required decompressive colonoscopies. The patient went for CT scan of the abdomen/pelvis [facility] which again showed recurrent sigmoid volvulus. I discussed the case with Dr. Greer from GI who recommended admission to the hospitalist group. He would make Dr. Mckeon aware after 7 AM. The patient was scheduled to see colorectal surgery by telehealth on Tuesday for definitive treatment of this recurrent condition. Obviously this will need to occur and may need to be expedited. Triage Nursing notes reviewed and agree with them. Additional history obtained from the patient's is at the bedside Prior medical records reviewed as I have seen this patient for one of his previous episodes of volvulus Vital Signs: reviewed and unremarkable Differential diagnosis: Constipation, small bowel obstruction, sigmoid volvulus, ileus ER treatment provided: IV normal saline bolus IV normal saline drip Diagnostics interpreted by me: Cardiac Monitoring: Normal sinus rhythm at 68 Laboratory studies: See below Imaging studies: As per stat rad CT ABDOMEN & PELVIS With Contrast: Sigmoid volvulus. The colon is gaseous distended without evidence perforation. The solid organs are within normal limits. No fracture. HPI: 61/M arrives for evaluation of abdominal pain. This is a 61-year-old male patient with a history of sigmoid volvulus requiring decompressive colonoscopy who presents to the emergency department with a 16-hour history of abdominal pain. The patient has had no bowel movement over the past 16 hours and only minimal expulsion of gas. Patient describes mild nausea but no vomiting. He had a normal breakfast but then only had small amounts of food throughout the day. ROS: See above HPI for pertinent positives & negatives. A total of 10 systems reviewed and were otherwise negative. PAST MEDICAL HISTORY:See Below PAST SURGICAL HISTORY:See Below FAMILY HISTORY:See Below SOCIAL HISTORY:See Below HOME MEDICATIONS:Linzess and MiraLAX ALLERGIES:None VITALS:See Below PHYSICAL EXAMINATION: HEENT: Head - normocephalic and atraumatic Pupils are equal, round, and reactive to light. Extraocular eye muscles are intact, and sclera are anicteric. Nose - moist nasal mucosa without discharge. Mouth - moist buccal mucosa. Oropharynx is nonerythematous and there is no tonsillar exudate or edema noted. Neck: Supple; no JVD or cervical lymphadenopathy Heart: Regular rate and rhythm. There is a normal S1 and S2 with no murmurs, clicks, or gallops appreciated. Lungs: Clear to auscultation bilaterally with no wheezes, rales, or rhonchi. Abdomen: Soft, nontender and tympanic to percussion. There were normal bowel sounds. There are no palpable pulsatile masses or hepatosplenomegaly. There is no guarding, rigidity, or rebound noted. Extremities: No evidence of cyanosis, clubbing, or edema. There are easily palpable peripheral pulses. Skin: warm and dry with good turgor and no rashes. ED COURSE: Times/Reassessments: 0025: The patient was evaluated in room A10. A complete history and physical was performed. An IV lock was initiated and labs were drawn as above. Previous electronic medical records were reviewed. The patient went for CT scan of the abdomen/pelvis. An order was placed for continuous cardiac monitoring. The patient was in a normal sinus rhythm at a rate of 68. The patient declined wanting anything for pain. He was bolused with IV normal saline solution and started on a normal saline drip. Reviewed the results of the laboratory studies and CT scan with the patient and his . I then discussed the case with Dr. Greer who is on-call for gastroenterology. He recommended admission to the hospitalist and consultation with gastroenterology. 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 Beliefs That Will Affect Care: None Current Living Situation: Spouse Feels Safe at Home: Yes Assistive Devices: Glasses Allergies Allergies Allergy/AdvReac Type Severity Reaction Status Date / Time No Known Allergies Allergy Verified 01/01/22 01:03 Home Meds Home Medications Medication Instructions Recorded Confirmed cholecalciferol (vitamin D3) 25 25 mcg PO DAILY 12/22/21 01/01/22 mcg (1,000 unit) tablet Previous Rx's Medication Instructions Recorded polyethylene glycol 3350 17 gram 17 g PO DAILY #30 ea 12/25/21 oral powder packet (Miralax) linaclotide 290 mcg capsule 290 mcg PO DAILY #30 cap 12/26/21 (Linzess) Results & Data (ED) Vital Signs Vital Signs - 24 hr 01/01/22 00:19 01/01/22 02:17 Temperature 36.6 C Temperature Source Temporal Artery Scan Pulse Rate 62 Pulse Rate [Right] 68 Respiratory Rate 18 18 Respiratory Effort / Characteristics Non-Labored Respiratory Depth Normal Normal Blood Pressure 135/86 Blood Pressure [Right Arm] 133/80 Blood Pressure Mean 102 Blood Pressure Mean [Right Arm] 97 Pulse Oximetry 98 99 Oxygen Delivery Method Room Air Room Air Sepsis New/Unexplained Change in Mental Status N/A Sepsis Action Taken by Nursing No Action Required Laboratory Data Result diagrams: 01/01/22 01:27 01/01/22 02:14 Lab Results 01/01/22 01/01/22 01/01/22 Range/Units 01:27 01:27 02:14 WBC 5.40 (4.8-10.8) K/uL RBC 4.62 L (4.7-6.1) M/uL Hgb 15.5 (14.0-18.0) g/dL Hct 42.7 (42-52) % MCV 92.4 (80-100) fL MCH 33.5 (25-34) pg MCHC 36.3 H (32-36) g/dL RDW Std Deviation 43.6 (36.4-46.3) fL RDW Coeff of Jeffery 12.7 (11.5-14.5) % Plt Count 307 (130-400) K/uL MPV 12.0 H (7.4-10.4) fL Immature Gran % (Auto) 0.2 % Neut % (Auto) 62.6 % Lymph % (Auto) 23.7 % Douglas % (Auto) 12.2 % Eos % (Auto) 0.7 % Baso % (Auto) 0.6 % Neut # (Auto) 3.38 (1.4-6.5) K/uL Lymph # (Auto) 1.28 (1.2-3.4) K/uL Douglas # (Auto) 0.66 H (0.11-0.59) K/uL Eos # (Auto) 0.04 (0-0.5) K/uL Baso # (Auto) 0.03 (0-0.2) K/uL Immature Gran # (Auto) 0.01 (0.00-0.02) K/uL Sodium Cancelled 133 L Potassium Cancelled 3.4 L Chloride Cancelled 102 Carbon Dioxide Cancelled 25 Anion Gap Cancelled 6 BUN Cancelled 14 Creatinine Cancelled 0.77 Est Cr Clr Drug Dosing Cancelled 91.6 Est GFR ( Amer) Cancelled 114.3 Est GFR (Non-Af Amer) Cancelled 98.6 BUN/Creatinine Ratio Cancelled 18.2 Glucose Cancelled 102 H Calcium Cancelled 8.7 Total Bilirubin Cancelled 2.2 H AST Cancelled 28 ALT Cancelled 26 Alkaline Phosphatase Cancelled 42 Total Protein Cancelled 6.5 Albumin Cancelled 4.1 Globulin Cancelled 2.4 L Albumin/Globulin Ratio Cancelled 1.7 Lipase Cancelled 44 Urine Color Urine Appearance (Clear) Urine pH (4.5-7.5) Ur Specific [place] (1.000-1.030) Urine Protein (Negative) Urine Glucose (UA) (Negative) Urine Ketones (Negative) Urine Blood (Negative) Urine Nitrite (Negative) Urine Bilirubin (Negative) Urine Urobilinogen (Negative) Ur Leukocyte Esterase (Negative) SARS-CoV-2, RNA, NAAT (NEGATIVE) 01/01/22 01/01/22 Range/Units 05:15 05:31 WBC (4.8-10.8) K/uL RBC (4.7-6.1) M/uL Hgb (14.0-18.0) g/dL Hct (42-52) % MCV (80-100) fL MCH (25-34) pg MCHC (32-36) g/dL RDW Std Deviation (36.4-46.3) fL RDW Coeff of Jeffery (11.5-14.5) % Plt Count (130-400) K/uL MPV (7.4-10.4) fL Immature Gran % (Auto) % Neut % (Auto) % Lymph % (Auto) % Douglas % (Auto) % Eos % (Auto) % Baso % (Auto) % Neut # (Auto) (1.4-6.5) K/uL Lymph # (Auto) (1.2-3.4) K/uL Douglas # (Auto) (0.11-0.59) K/uL Eos # (Auto) (0-0.5) K/uL Baso # (Auto) (0-0.2) K/uL Immature Gran # (Auto) (0.00-0.02) K/uL Sodium Potassium Chloride Carbon Dioxide Anion Gap BUN Creatinine Est Cr Clr Drug Dosing Est GFR ( Amer) Est GFR (Non-Af Amer) BUN/Creatinine Ratio Glucose Calcium Total Bilirubin AST ALT Alkaline Phosphatase Total Protein Albumin Globulin Albumin/Globulin Ratio Lipase Urine Color Yellow Urine Appearance Clear (Clear) Urine pH 8.5 H (4.5-7.5) Ur Specific [place] 1.022 (1.000-1.030) Urine Protein Negative (Negative) Urine Glucose (UA) Negative (Negative) Urine Ketones Negative (Negative) Urine Blood Negative (Negative) Urine Nitrite Negative (Negative) Urine Bilirubin Negative (Negative) Urine Urobilinogen Negative (Negative) Ur Leukocyte Esterase Negative (Negative) SARS-CoV-2, RNA, NAAT NEGATIVE (NEGATIVE) Administered Medications Sodium Chloride (Nss) 500 mls @ 125 mls/hr IV .Q4H KATIA Stop: 01/31/22 04:44 Last Admin: 01/01/22 05:16 Dose: 125 mls/hr Documented by: [id number] Discontinued Medications Sodium Chloride (Nss) 500 mls @ 999 mls/hr IV .Q31M ONE Stop: 01/01/22 05:01 Last Infusion: 01/01/22 05:16 Dose: 0 mls/hr Documented by: [id number] Admin: 01/01/22 04:39 Dose: 999 mls/hr Documented by: [id number] Ioversol (Optiray 320 100ml) 100 ml IV ONCE ONE Stop: 01/01/22 03:07 Last Admin: 01/01/22 03:06 Dose: 93 ml Documented by: [id number] Discharge Plan Visit Data Chief Complaint: Abdominal Pain Stated Complaint: ABD PAINS,NAUSEA ED Provider: Chelsey Maciel Discharge Problem: Sigmoid volvulus Forms Stand Alone Forms: [facility] Prescriptions Prescriptions: No Action cholecalciferol (vitamin D3) 25 mcg (1,000 unit) Tablet 25 mcg PO DAILY RF: 0 polyethylene glycol 3350 [Miralax] 17 gram Powder In Packet 17 g PO DAILY Qty: 30 RF: 0 Linzess 290 mcg capsule 290 mcg PO DAILY Qty: 30 RF: 5 Referrals Referrals: Ne Salas [Primary Care Provider] -
[2022-01-01 01:38] LABS: Basophils # (auto) 0.03 K/uL (0-0.2); Basophils % (auto) 0.6 %; Eosinophils # (auto) 0.04 K/uL (0-0.5); Eosinophils % (auto) 0.7 %; Hematocrit (blood only) 42.7 % (42-52); Hemoglobin 15.5 g/dL (14.0-18.0); Immature Granulocytes # (auto) 0.01 K/uL (0.00-0.02); Immature Granulocytes % (auto) 0.2 %; Lymphocytes # (auto) 1.28 K/uL (1.2-3.4); Lymphocytes % (auto) 23.7 %; Mean Corpuscular Hemoglobin 33.5 pg (25-34); Mean Corpuscular Hgb Conc 36.3 g/dL (32-36); Mean Corpuscular Volume 92.4 fL (80-100); Monocytes # (auto) 0.66 K/uL (0.11-0.59); Monocytes % (auto) 12.2 %; Neutrophils # (auto) 3.38 K/uL (1.4-6.5); Neutrophils % (auto) 62.6 %; Platelet Count 307 K/uL (130-400); RDW Coefficient of Variation 12.7 % (11.5-14.5); RDW Standard Deviation 43.6 fL (36.4-46.3); Red Blood Count 4.62 M/uL (4.7-6.1)
[2022-01-01 02:52] LABS: Albumin Globulin Ratio 1.7 (0.9-2); Albumin Level 4.1 gm/dl (3.4-5.0); BUN Creatinine Ratio 18.2 (10-20); Bilirubin,Total 2.2 mg/dl (0.2-1.0); Calcium 8.7 mg/dl (8.5-10.1); Creatinine Clr Calc Pharmacy 91.6 ml/min; Est GFR (African American) 114.3 ml/min; Est GFR (Non-African American) 98.6 ml/min; Globulin 2.4 gm/dl (2.5-4.0); Potassium 3.4 mmol/L (3.5-5.1); Total Protein 6.5 gm/dl (6.0-8.3)
[2022-01-01] MEDS ORDERED: OPTIRAY 320 100ml IV ONE (03:06)
[2022-01-01] MEDS ORDERED: SODIUM CHLORIDE 0.9% 500 ML IV ONE (04:31)
[2022-01-01] MEDS ORDERED: SODIUM CHLORIDE 0.9% 500 ML IV SCH (04:45)
[2022-01-01 05:43] LABS: Appearance Urine Clear (Clear); Bilirubin Urine Negative (Negative); Blood Urine Negative (Negative); Color Urine Yellow; Glucose Urine UA Negative (Negative); Ketones Urine Negative (Negative); Leukocyte Esterase Urine Negative (Negative); Nitrite Urine Negative (Negative); Protein Urine Negative (Negative); Specific Gravity Urine 1.022 (1.000-1.030); Urobilinogen Urine Negative (Negative); pH Urine 8.5 (4.5-7.5)
--- NOTE | 2022-01-01 06:02 | History & Physical Report ---
Date of Service January 01, 2022 Assessment & Plan (1) Sigmoid volvulus: Plan: Patient with history of the same. Has had decompressive colonoscopy x 2 (09/26/21 and most recently 12/24/21) -Admit to medical -GI consultation appreciated - plan for decompressive colonoscopy later today -Keep patient NPO -IVF with NSS at 125mL/hr + KCl -Morphine as needed for pain -Zofran as needed for nausea -Patient to followup with Dr. Hernandez of Colorectal surgery at [facility] (2) Irritable bowel syndrome with constipation: Plan: NPO for now -Resume Linzess and Miralax once diet is advanced Plan: F/E/N - NSS + KCl at 125mL/hr, K repletion, NPO Ppx - low risk for DVT - SCDs placed Code - Full Dispo - Admission to medical History of Present Illness Chief Complaint: abdominal pain Primary Care Provider: Robbidaniiandie Del Cid is a 61yo male with history of IBS with Constipation, prior sigmoid volvulus. Patient had a decompressive colonoscopy performed on 09/26/21. Returned to the ER on 12/23/20 with similar complaints and found to again have a sigmoid volvulus. He had another decompressive colonoscopy performed by Dr. Yee on 12/24/21. Llinzess was increased to 290mcg daily and Miralax 17gm daily was added. Patient follows with Dr. Hernandez of Colorectal surgery. Patient has been following a low fiber diet and taking his medications as prescribed. Yesterday morning he developed the feeling of constipation with some cramping lower abdominal pain and bloating which continued throughout the day. This felt similar to his 2nd sigmoid volvulus. No BM, passing a very small amount of gas. Mild nausea and lower abdominal pressure. Otherwise no complaints. ER Course: NSS Allergies Allergy/AdvReac Type Severity Reaction Status Date / Time No Known Allergies Allergy Verified 01/01/22 01:03 Home Medications Medication Instructions Recorded Confirmed Type cholecalciferol (vitamin D3) 25 25 mcg PO DAILY 12/22/21 01/01/22 History mcg (1,000 unit) tablet polyethylene glycol 3350 17 gram 17 g PO DAILY #30 ea 12/25/21 01/01/22 Rx oral powder packet (Miralax) linaclotide 290 mcg capsule 290 mcg PO DAILY #30 cap 12/26/21 01/01/22 Rx (Linzess) Past Med/Surg History Medical History (Updated 01/01/22 @ 06:07 by Chelsey Maciel DO) Irritable bowel syndrome Sigmoid volvulus Surgical History (Updated 12/24/21 @ 12:39 by Danyel Skinner MD) Hx of colonoscopy Social History Smoking Status: Never smoker Hx Alcohol Use: Yes Alcohol type: beer Hx Substance Use: No Preferred Language: Indonesian Communication Ability: Effective Railroad Brakeman Required: No Beliefs That Will Affect Care: None Current Living Situation: Spouse Feels Safe at Home: Yes Assistive Devices: Glasses Review of Systems Review of Systems: All systems reviewed & are unremarkable except as noted in HPI & below Physical Exam Physical Exam: General: patient resting comfortably, NAD, non-toxic in appearance, AA&O x 4 Skin: warm, dry, intact, no rashes or lesions HEENT: NC/AT, PERRL, EOMI, anicteric sclera, conjunctiva without injection, external ear normal to inspection and nontender, nares patent, moist mucus m embranes, dentition intact, no oropharyngeal lesions, neck supple, trachea midline, no LAD, no thyromegaly, no JVD Heart: +S1/S2, regular, bradycardic, no m/r/g Lungs: equal air entry bilaterally, no rales/rhonchi/wheezes Abd: +BS diminished, soft, NT/ND, no masses/organomegaly/ascites Ext: warm, 2+ pulses in UE/LE bilaterally, no clubbing/cyanosis or edema Neuro: nonfocal, patient AA&O x 4, speech intact, no facial droop, moving all extremities on command with equal strength 5/5 Results & Data Results & Data ([facility]) Vital Signs (Past 12 Hours) Vital Signs Temp Pulse Pulse Resp BP BP Pulse Ox 01/01/22 02:17 68 18 133/80 99 01/01/22 00:19 36.6 C 62 18 135/86 98 Laboratory Results Laboratory Results WBC 5.40 K/uL (4.8-10.8) 01/01/22 01:27 RBC 4.62 M/uL (4.7-6.1) L 01/01/22 01:27 Hgb 15.5 g/dL (14.0-18.0) 01/01/22 01:27 Hct 42.7 % (42-52) 01/01/22 01: MCV 92.4 fL (80-100) 01/01/22 01:27 MCH 33.5 pg (25-34) 01/01/22 01: MCHC 36.3 g/dL (32-36) H 01/01/22 01: RDW Std Deviation 43.6 fL (36.4-46.3) 01/01/22 01: RDW Coeff of Jeffery 12.7 % (11.5-14.5) 01/01/22: Plt Count 307 K/uL (130-400) 01/01/22 01: MPV 12.0 fL (7.4-10.4) H 01/01/22 01: Immature Gran % (Auto) 0.2 % 01/01/22 01: Neut % (Auto) 62.6 % 01/01/22 01:27 Lymph % (Auto) 23.7 % 01/01/22 01:27 Camp % (Auto) 12.2 % 01/01/22 01:27 Eos % (Auto) 0.7 % 01/01/22 01: Baso % (Auto) 0.6 % 01/01/22 01:27 Neut # (Auto) 3.38 K/uL (1.4-6.5) 01/01/22 01: Lymph # (Auto) 1.28 K/uL (1.2-3.4) 01/01/22 01:27 Camp # (Auto) 0.66 K/uL (0.11-0.59) H 01/01/22 01:27 Eos # (Auto) 0.04 K/uL (0-0.5) 01/01/22 01:27 Baso # (Auto) 0.03 K/uL (0-0.2) 01/01/22 01:27 Immature Gran # (Auto) 0.01 K/uL (0.00-0.02) 01/01/22 01:27 Sodium 133 mmol/L (136-145) L 01/01/22 02:14 Potassium 3.4 mmol/L (3.5-5.1) L 01/01/22 02:14 Chloride 102 mmol/L (98-107) 01/01/22 02:14 Carbon Dioxide 25 mmol/L (21-32) 01/01/22 02:14 Anion Gap 6 (3-11) 01/01/22 02:14 BUN 14 mg/dl (6-23) 01/01/22 02:14 Creatinine 0.77 mg/dl (0.6-1.4) 01/01/22 02:14 Est Cr Clr Drug Dosing 91.6 ml/min 01/01/22 02:14 Est GFR ( Amer) 114.3 ml/min 01/01/22 02:14 Est GFR (Non-Af Amer) 98.6 ml/min 01/01/22 02:14 BUN/Creatinine Ratio 18.2 (10-20) 01/01/22 02:14 Glucose 102 mg/dl (70-99(Fasting)) H 01/01/22 02:14 Calcium 8.7 mg/dl (8.5-10.1) 01/01/22 02:14 Total Bilirubin 2.2 mg/dl (0.2-1.0) H 01/01/22 02:14 AST 28 U/L (13-39) 01/01/22 02:14 ALT 26 U/L (7-52) 01/01/22 02:14 Alkaline Phosphatase 42 U/L (34-104) 01/01/22 02:14 Total Protein 6.5 gm/dl (6.0-8.3) 01/01/22 02:14 Albumin 4.1 gm/dl (3.4-5.0) 01/01/22 02:14 Globulin 2.4 gm/dl (2.5-4.0) L 01/01/22 02:14 Albumin/Globulin Ratio 1.7 (0.9-2) 01/01/22 02:14 Lipase 44 U/L (11-82) 01/01/22 02:14 Urine Color Yellow 01/01/22 05:15 Urine Appearance Clear (Clear) 01/01/22 05:15 Urine pH 8.5 (4.5-7.5) H 01/01/22 05:15 Ur Specific [place] 1.022 (1.000-1.030) 01/01/22 05:15 Urine Protein Negative (Negative) 01/01/22 05:15 Urine Glucose (UA) Negative (Negative) 01/01/22 05:15 Urine Ketones Negative (Negative) 01/01/22 05:15 Urine Blood Negative (Negative) 01/01/22 05:15 Urine Nitrite Negative (Negative) 01/01/22 05:15 Urine Bilirubin Negative (Negative) 01/01/22 05:15 Urine Urobilinogen Negative (Negative) 01/01/22 05:15 Ur Leukocyte Esterase Negative (Negative) 01/01/22 05:15 SARS-CoV-2, RNA, NAAT NEGATIVE (NEGATIVE) 01/01/22 05:[address] Abdomen - per STAT rad - Sigmoid volvulus PG Care Time/CCT Total # of Minutes Spent Total Time Spent with Patient: Total time spent is greater than 50% in coordination of care (as documented) at patient's floor/unit and/or counseling patient: Coding Level of Care Code 36816 Initial Inpt Care Lvl 2 Diagnoses Sigmoid volvulus K56.2 Irritable bowel syndrome with constipation K58.1
--- NOTE | 2022-01-01 06:06 | Communication Note ---
Date of Service: January 01, 2022 Patient appears to have a recurrent sigmoid volvulus (called by the ER to review and determine course of action at 0525). It appears the that the patient has had several occurrences over the last 6 months and last underwent decompression on Dec 24 with . It appears he is to see a colorectal specialist at [facility]. Plan Colonic decompression later this morning ([facility]) NPO Continue IV hydration COVID test is pending Would suggest a general surgery consultation Patient may benefit from IP transfer given the numerous recurrences if surgery not an option at [facility].
[2022-01-01] MEDS ORDERED: MoRPHine SULFATE 4 MG/ML 1 ML CARP\\VIAL IV PRN (06:30)
[2022-01-01] MEDS ORDERED: POTASSIUM CHLORIDE 20 MEQ in SODIUM CHLORIDE 0.9% 1000ML 1,000 ML IV SCH (06:30)
[2022-01-01] MEDS ORDERED: MoRPHine SULFATE 2 MG/ML CARP IV PRN (06:30)
[2022-01-01] MEDS ORDERED: ONDANSETRON INJ 2 MG/ML 2 ML VIAL IV PRN (06:30)
[2022-01-01] MEDS: NSS + 20MEQ KCL 20 MEQ/1,000 ML BAG IV SCH ×2 (06:44→17:12)
--- NOTE | 2022-01-01 07:50 | CT Scan Report ---
CT SCAN OF THE ABDOMEN AND PELVIS WITH IV CONTRAST CLINICAL HISTORY: Left upper quadrant abdominal pain. COMPARISON STUDY: Abdominal CT dated 12/22/2021 and 11/20/2020. TECHNIQUE: Following the IV administration of 93 cc of Optiray 320, CT scan of the abdomen and pelvi s is performed from the lung bases to the proximal femora. Images are reviewed in the axial, sagittal , and coronal planes. IV contrast was administered without complication. A dose lowering technique wa s utilized adhering to the principles of ALARA. CT DOSE: 291.92 mGy.cm FINDINGS: Lung bases: The heart is normal mildly enlarged and without pericardial effusion. The lung bases are clear. Liver: The contrast-enhanced liver is normal in size, contour, and attenuation. There is no intrahepa tic biliary ductal dilatation. The hepatic veins and portal veins are patent. Gallbladder: There are calcified gallstones with no CT evidence of acute cholecystitis. Spleen: Normal in size and attenuation. A 3.7 x 3.0 cm heterogeneously enhancing splenic lesion seen on image #57 is unchanged. Pancreas: Unremarkable. Adrenal glands: Unremarkable. Kidneys: The contrast enhanced kidneys are normal in size and without hydronephrosis. The kidneys enh ance symmetrically. Abdominal vasculature: The abdominal aorta is normal in course and caliber noting mild atheroscleroti c calcification. Bowel: There is focal twisting of the sigmoid colon in the pelvis seen on axial image #262. The upstr eam colon is dilated measuring up to 7.5 cm in diameter and findings are consistent with a persistent sigmoid volvulus. The small bowel loops are mildly distended and fluid-filled. There is no pneumatos is intestinalis or portal venous gas. The appendix is not visualized Peritoneum: There is no intraperitoneal free air or abdominal ascites. Lymphadenopathy: None. Pelvic viscera: The the bladder is distended comment wall appears mildly thickened/trabeculated sugge sting chronic outlet obstruction. The prostate gland is enlarged and heterogeneous. Skeletal structures: No lytic or blastic lesions are seen. IMPRESSION: 1. Recurrent versus persistent sigmoid volvulus with gaseous distention of the upstream colon. 2. The small bowel loops are mildly distended and fluid-filled. 3. No intraperitoneal free air is identified and there is no abdominal ascites. 4. A 3.7 cm heterogeneously enhancing splenic lesion is unchanged and remains pathologically indeterm inant. A neoplasm would be impossible to exclude. 5. Cholelithiasis. 6. Additional findings as above. ACT 112: Negative or not required by law. Electronically signed by: Lloyd Crook M.D. 01/01/2022 7:49 AM
--- NOTE | 2022-01-01 08:32 | Anesthesiology Consultation ---
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 Mike Abraham Case, DO Height/Weight Height: 5 ft 9 in Weight: 63.5 kg Allergies Allergy/AdvReac Type Severity Reaction Status Date / Time No Known Allergies Allergy Verified 01/01/22 01:03 Medications Home Medications Medication Instructions Recorded Confirmed Last Taken cholecalciferol (vitamin D3) 25 25 mcg PO DAILY 12/22/21 01/01/22 12/31/21 mcg (1,000 unit) tablet polyethylene glycol 3350 17 gram 17 g PO DAILY #30 ea 12/25/21 01/01/22 12/31/21 oral powder packet (Miralax) linaclotide 290 mcg capsule 290 mcg PO DAILY #30 cap 12/26/21 01/01/22 12/31/21 (Linzess) Active Medications Generic Name Dose Route Start Last Admin Trade Name Freq PRN Reason Stop Dose Admin Potassium Chloride/Sodium Chloride 20 meq in 1,000 mls @ 125 mls/hr 01/01/22 06:45 01/01/22 06:44 Normal Saline W/20 Meq Kcl IV 01/01/22 22:44 125 mls/hr .Q8H KATIA Administration Past Medical History Medical History (Updated 01/01/22 @ 08:35 by Ramón Lui MD) Encounter for pre-operative examination Irritable bowel syndrome Sigmoid volvulus Past Surgical History Surgical History Hx of colonoscopy Past Anesthesia History No Hx of Anesthesia Complications and No Family Hx of Anesthesia Complications History of PONV No Hx of PONV and No Hx of Motion Sickness Social History Smoking Status: Never smoker Hx Alcohol Use: Yes Alcohol type: beer alcohol intake frequency: 0-2 drinks per day Hx Substance Use: No Physical Exam Vital Signs Last Vital Signs Temp 36.6 C 01/01/22 00:19 Pulse 58 L 01/01/22 06:00 Resp 18 01/01/22 06:00 BP 133/80 01/01/22 02:17 Pulse Ox 98 01/01/22 06:00 ENMT Mouth: no chipped teeth and no loose teeth Thyromental Distance: > or= 3.5 Finger Breadths Neck normal visual inspection and trachea midline; neck extension not limited Respiratory normal respiratory effort; no respiratory distress Auscultation: lungs clear to auscultation bilaterally; no crackles, no rhonchi and no wheezes Cardiovascular Rate/Rhythm: regular rate and regular rhythm Heart Sounds: no gallop, no murmur and no cardiac rub Neurologic moves all extremities and awake Psychiatric Orientation: alert Testing Laboratory Results 01/01/22 01:27 01/01/22 02:14 Urine Color Yellow 01/01/22 05:15 Urine Appearance Clear (Clear) 01/01/22 05:15 Urine pH 8.5 (4.5-7.5) H 01/01/22 05:15 Ur Specific [place] 1.022 (1.000-1.030) 01/01/22 05:15 Urine Protein Negative (Negative) 01/01/22 05:15 Urine Glucose (UA) Negative (Negative) 01/01/22 05:15 Urine Ketones Negative (Negative) 01/01/22 05:15 Urine Nitrite Negative (Negative) 01/01/22 05:15 Ur Leukocyte Esterase Negative (Negative) 01/01/22 05:15 Electrocardiogram Date: 12/23/21 Findings: + SB @ (55) Chest X-Ray Date: 12/23/21 Findings: + NAD
--- NOTE | 2022-01-01 08:52 | Gastrointestinal Consultation ---
Date of Consultation January 01, 2022 Assessment & Plan (1) Irritable bowel syndrome with constipation: (2) Sigmoid volvulus: Recommend colonic decompression now The treatment for recurrent sigmoid volvulus is not repeated colonic decompressions, as the risk and rate of recurrence are high. A bowel regimen, though advised will continue with Linzess and Miralax, however, due to the mechanical nature of Sigmoid Volvulus is not considered definitive therapy Recommend surgery consult now for bowel resection, and if patient would rather have surgery at [facility], would recommend transfer during this admission. Recommend continued fluid hydration and correction of hypokalemia per hospitalist team. Further recommendations to follow above noted procedure. History of Present Illness Reason for Consultation: Sigmoid Volvulus Attending Physician: Zaid Redmond DO History of Present Illness Gerald Del Cid is a 61 yo CM with a significant PMHx of IBS-C and sigmoid volvulus, who underwent decompression in September 2022, as well as 12/24/[address] Yee. He was started on Linzess and Miralax therapy, and a low fiber diet, and was scheduled to see Dr. Hernandez of colorectal surgery at [facility], however, has not seen him as of this time. He presented to the ER early this AM with abdominal pain and nausea, stating that his pain was similar to prior sigmoid volvulus. He was noted to have be hypokalemic (3.4) and a CT Abd consistent with a recurrent/persistent sigmoid volvulus. He was subsequently admitted, given IVF and kept NPO. At the time I saw the patient he complained of persistent lower abdominal pressure and bloating. He denies any fevers, chills, nausea, vomiting, diarrhea, melena, hematochezia, lightheadedness or dizziness. He denies any further complaints. Allergies Allergy/AdvReac Type Severity Reaction Status Date / Time No Known Allergies Allergy Verified 01/01/22 09:21 Home Medications Medication Instructions Recorded Confirmed Type cholecalciferol (vitamin D3) 25 25 mcg PO DAILY 12/22/21 01/01/22 History mcg (1,000 unit) tablet polyethylene glycol 3350 17 gram 17 g PO DAILY #30 ea 12/25/21 01/01/22 Rx oral powder packet (Miralax) linaclotide 290 mcg capsule 290 mcg PO DAILY #30 cap 12/26/21 01/01/22 Rx (Roger) Patient History Medical History Encounter for pre-operative examination Irritable bowel syndrome Sigmoid volvulus Surgical History Hx of colonoscopy Social History Smoking Status: Never smoker Hx Alcohol Use: Yes Alcohol type: beer Hx Substance Use: No Preferred Language: Korean Communication Ability: Effective Drop Board Man Required: No Beliefs That Will Affect Care: None Current Living Situation: Significant Other Feels Safe at Home: Yes Safety Concerns: Feels Safe At This Time Assistive Devices: Glasses Review of Systems Constitutional: as per Subjective / HPI Eyes: as per Subjective / HPI Ear, Nose, Mouth, Throat: as per Subjective / HPI Respiratory: as per Subjective / HPI Cardiovascular: as per Subjective / HPI Gastrointestinal: as per Subjective / HPI Musculoskeletal: as per Subjective / HPI Integumentary: as per Subjective / HPI Neurologic: as per Subjective / HPI Psychiatric: as per Subjective / HPI Endocrine: as per Subjective / HPI Hematologic / Lymphatic: as per Subjective / HPI Allergy / Immunological: as per Subjective / HPI Physical Exam Constitutional: healthy appearing; no acute distress and not ill appearing Eyes: + anicteric sclerae ENMT: external ear and nose normal, oropharynx normal Neck: normal visual inspection Respiratory: normal respiratory effort, lungs clear to auscultation Cardiovascular: RRR, no murmur, no edema Gastrointestinal (Abdomen): Inspection/Auscultation: abdomen not distended and + abnormal bowel sounds Percussion/Palpation: + abdomen tender (Lower abdomen) and abdomen soft Skin: no rashes, warm and dry Psychiatric: A+Ox3, euthymic affect Results & Data ([facility]) Vital Signs (Past 12 Hours) Vital Signs Temp Pulse Pulse Resp BP BP Pulse Ox 01/01/22 08:49 37.1 C 52 L 18 123/73 98 01/01/22 06:00 58 L 18 98 01/01/22 02:17 68 18 133/80 99 01/01/22 00:19 36.6 C 62 18 135/86 98 PG Care Time/CCT Total # of Minutes Spent Total Time Spent with Patient: Total time spent is greater than 50% in coordination of care (as documented) at patient's floor/unit and/or counseling patient: Coding Level of Care Code 84406 Inpt Consult Level 4 Diagnoses Irritable bowel syndrome with constipation K58.1 Sigmoid volvulus K56.2
[2022-01-01] MEDS ORDERED: MINERAL OIL 30 ML UDC ONE (09:24)
[2022-01-01] MEDS ORDERED: PROPOFOL IV EMULSION 10 MG/ML 20 ML VIAL IV ONE (10:10)
--- NOTE | 2022-01-01 10:22 | GI REPORT ---
Patient Name: Gerald Del Cid Procedure Date: 01/01/2022 9:28 AM Date of : 1960 Admit Type: Inpatient Age: 61 Gender: Male Attending MD: Tomer Mckeon DO Procedure: Colonoscopy Providers: Tomer Mckeon DO Referring MD: Zaid Redmond DO, Nasir Hernandez MD Indications: Volvulus Medicines: Monitored Anesthesia Care Complications: No immediate complications. Estimated Blood Loss: Estimated blood loss: none. Procedure: Pre-Anesthesia Assessment: - Prior to the procedure, a History and Physical was performed, and patient medications and allergies were reviewed. The patient's tolerance of previous anesthesia was also reviewed. The risks and benefits of the procedure and the sedation options and risks were discussed with the patient. All questions were answered, and informed consent was obtained. Prior Anticoagulants: The patient has taken no previous anticoagulant or antiplatelet agents. ASA Grade Assessment: II - A patient with mild systemic disease. After reviewing the risks and benefits, the patient was deemed in satisfactory condition to undergo the procedure. After I obtained informed consent, the scope was passed under direct vision. Throughout the procedure, the patient's blood pressure, pulse, and oxygen saturations were monitored continuously. The Scope was introduced through the anus and advanced to the transverse colon for evaluation. This was the intended extent. The colonoscopy was performed without difficulty. The patient tolerated the procedure well. The quality of the bowel preparation was adequate. No anatomical landmarks were photographed. Findings: A volvulus with viable appearing mucosa was found in the sigmoid colon. Decompression of the volvulus was attempted and was successful, with complete decompression achieved. Following the maneuver, a tube was placed to maintain the decompression. Impression: - Volvulus. Successful complete decompression achieved. - No specimens collected. Recommendation: - Return patient to [facility] for ongoing care. - Clear liquid diet. - Continue present medications. - Refer to a surgeon today. Tomer Mckeon DO 01/01/2022 10:21:44 AM This report has been signed electronically. Note Initiated On: 01/01/2022 9:28 AM Number of Addenda: 0 I attest to the content of the Intraoperative Record and orders documented therein, exceptions below {[id number]}
--- NOTE | 2022-01-01 11:58 | XRay Report ---
KUB CLINICAL HISTORY: Placement of rectal tube COMPARISON STUDY: CT of the abdomen and pelvis performed earlier today. FINDINGS: Interval placement of a rectal tube is noted. The portion of the tube is coiled within the sigmoid colon. The tip of the tube is within the distal descending colon. Gaseous distention of the c olon has improved. There is contrast within the bladder from recent contrast-enhanced CT. IMPRESSION: 1. Interval placement of a rectal tube. Tip within the distal descending colon. Portion of the tube c oiled within the sigmoid colon. 2. Interval decrease in gaseous distention of the colon. ACT 112: Negative or not required by law. Electronically signed by: Torey Carroll M.D. 01/01/2022 11:57 AM
--- NOTE | 2022-01-01 12:57 | Anesthesiology Progress Note ---
Date of Service January 01, 2022 Anesthesia Post Procedure Vital Signs Vital Signs: Temp Pulse Pulse Resp BP BP Pulse Ox 01/01/22 11:24 50 L 18 119/71 99 01/01/22 10:44 49 L 18 107/70 99 01/01/22 10:27 47 L 18 107/56 L 99 01/01/22 10:12 52 L 18 83/43 L 96 01/01/22 09:25 36.5 C 51 L 18 125/78 99 01/01/22 08:49 37.1 C 52 L 18 123/73 98 01/01/22 06:00 58 L 18 98 01/01/22 02:17 68 18 133/80 99 01/01/22 00:19 36.6 C 62 18 135/86 98 Pain Intensity Lower Abdomen: Pain Intensity: 3 Transfer of Care Handoff Completed per policy Notes Mental Status: alert / awake / arousable and participated in evaluation Patient Amnestic to Procedure: Yes Nausea / Vomiting: adequately controlled Pain: adequately controlled Airway Patency, RR, SpO2: stable & adequate BP & HR: stable & adequate Hydration State: stable & adequate Anesthetic Complications: no major complications apparent and Pt Satisfied with anesthetic care
--- NOTE | 2022-01-01 15:29 | Surgery Consultation ---
Date of Consultation January 01, 2022 Assessment & Plan (1) Sigmoid volvulus: pt is a 61 year-old male who was admitted to hospital for recurrent sigmoid volvulus, pt is S/P colonoscopy decompressed sigmoid colon, with rectal tube, IMP: sigmoid volvulus Plan, recommend to transfer to [facility] for colorectal surgeon consult for resection sigmoid colon, I talked to mobile electronics installer colorectal surgeon from [facility], the surgeon recommend follow up DR Ulises Hernandez on Tuesday, clear diet, F/U Dr. Hernandez on Tuesday, History of Present Illness Reason for Consultation: sigmoid volvulus Requesting Physician: Zaid Redmond. DO Attending Physician: Zaid Redmond, History of Present Illness Chief Complaint: abdominal pain Primary Care Provider: Ne Salas Gerald Del Cid is a 61yo male with history of IBS with Constipation, prior sigmoid volvulus. Patient had a decompressive colonoscopy performed on 09/26/21. Returned to the ER on 12/23/20 with similar complaints and found to again have a sigmoid volvulus. He had another decompressive colonoscopy p erformed by Dr. Yee on 12/24/21. Llinzess was increased to 290mcg daily and Miralax 17gm daily was added. Patient follows with Dr. Hernandez of Colorectal surgery. Patient has been following a low fiber diet and taking his medications as prescribed. Yesterday morning he developed the feeling of constipation with some cramping lower abdominal pain and bloating which continued throughout the day. This felt similar to his 2nd sigmoid volvulus. No BM, passing a very small amount of gas. Mild nausea and lower abdominal pressure. Otherwise no complaints. I ( Immanuel Cameron MD ) got a call for consult sigmoid volvulus, I reviewed pt's H/P, labs, CT scan with pt, pt just had Colonoscopy with decompressed colon with rectal tube, pt denies abdominal pain now, ER Course: NSS Allergies Allergy/AdvReac Type Severity Reaction Status Date / Time No Known Allergies Allergy Verified 01/01/22 01:03 Home Medications Medication Instructions Recorded Confirmed Type cholecalciferol (vitamin D3) 25 25 mcg PO DAILY 12/22/21 01/01/22 History mcg (1,000 unit) tablet polyethylene glycol 3350 17 gram 17 g PO DAILY #30 ea 12/25/21 Rx oral powder packet (Miralax) linaclotide 290 mcg capsule 290 mcg PO DAILY #30 cap 12/26/21 2 Rx (Linzess) Past Med/Surg History Medical History(Updated 01/01/22 @ 06:07 by Chelsey Maciel DO) Irritable bowel syndrome Sigmoid volvulus Surgical History(Updated 12/24/21 @ 12:39 by Danyel Skinner MD) Hx of colonoscopy Social History Smoking Status: Never smoker Hx Alcohol Use: Yes Alcohol type: beer Hx Substance Use: No Preferred Language: Beninese Communication Ability: Effective Director Erp Required: No Beliefs That Will Affect Care: None Current Living Situation: Spouse Feels Safe at Home: Yes Assistive Devices: Glasses Review of Systems Review of Systems: All systems reviewed & are unremarkable except as noted in HPI & below Allergies Allergy/AdvReac Type Severity Reaction Status Date / Time No Known Allergies Allergy Verified 01/01/22 09:21 Home Medications Medication Instructions Recorded Confirmed Type cholecalciferol (vitamin D3) 25 25 mcg PO DAILY 12/22/21 01/01/22 History mcg (1,000 unit) tablet polyethylene glycol 3350 17 gram 17 g PO DAILY #30 ea 12/25/21 01/01/22 Rx oral powder packet (Miralax) linaclotide 290 mcg capsule 290 mcg PO DAILY #30 cap 12/26/21 01/01/22 Rx (Linzess) Patient History Medical History Encounter for pre-operative examination Irritable bowel syndrome Sigmoid volvulus Surgical History Hx of colonoscopy Social History Smoking Status: Never smoker Hx Alcohol Use: Yes Alcohol type: beer Hx Substance Use: No Preferred Language: Beninese Communication Ability: Effective Director Erp Required: No Beliefs That Will Affect Care: None marital status: life partner. Current Living Situation: Significant Other Feels Safe at Home: Yes Safety Concerns: Feels Safe At This Time Assistive Devices: None Assistive Devices Comment: none Review of Systems Constitutional: as per Subjective / HPI Eyes: as per Subjective / HPI Respiratory: as per Subjective / HPI Cardiovascular: as per Subjective / HPI Gastrointestinal: IBS, constipation, sigmoid volvulus Genitourinary: + as per Subjective / HPI Musculoskeletal: as per Subjective / HPI Neurologic: as per Subjective / HPI Psychiatric: as per Subjective / HPI Endocrine: as per Subjective / HPI Hematologic / Lymphatic: as per Subjective / HPI Physical Exam Constitutional: WD/WN, vitals as above Eyes: PERRL, conjunctivae normal, anicteric sclerae Neck: trachea midline, no thyromegaly Respiratory: normal respiratory effort, lungs clear to auscultation Cardiovascular: RRR, no murmur, no edema Gastrointestinal (Abdomen): soft, NT, ND, BS + Musculoskeletal: no cyanosis or clubbing, extremities motor strength 5/5 Neurologic: patellar DTR's 2+ bilat, sensation intact Psychiatric: A+Ox3, euthymic affect Results & Data ([facility]) Vital Signs (Past 12 Hours) Vital Signs Temp Pulse Resp BP Pulse Ox 01/01/22 11:24 50 L 18 119/71 99 01/01/22 10:44 49 L 18 107/70 99 01/01/22 10:27 47 L 18 107/56 L 99 01/01/22 10:12 52 L 18 83/43 L 96 01/01/22 09:25 36.5 C 51 L 18 125/78 99 01/01/22 08:49 37.1 C 52 L 18 123/73 98 01/01/22 06:00 58 L 18 98 Laboratory Results Abnormal lab results 01/01/22 01/01/22 01/01/22 Range/Units 01:27 02:14 05:15 RBC 4.62 L (4.7-6.1) M/uL MCHC 36.3 H (32-36) g/dL MPV 12.0 H (7.4-10.4) fL [place] # (Auto) 0.66 H (0.11-0.59) K/uL Sodium 133 L (136-145) mmol/L Potassium 3.4 L (3.5-5.1) mmol/L Glucose 102 H (70-99(Fasting)) mg/dl Total Bilirubin 2.2 H (0.2-1.0) mg/dl Globulin 2.4 L (2.5-4.0) gm/dl Urine pH 8.5 H (4.5-7.5) Diagnostic Findings CT SCAN OF THE ABDOMEN AND PELVIS WITH IV CONTRAST CLINICAL HISTORY: Left upper quadrant abdominal pain. COMPARISON STUDY: Abdominal CT dated 12/22/2021 and 11/20/2020. TECHNIQUE: Following the IV administration of 93 cc of Optiray 320, CT scan of the abdomen and pelvis is performed from the lung bases to the proximal femora. Images are reviewed in the axial, sagittal, and coronal planes. IV contrast was administered without complication. A dose lowering technique was utilized adhering to the principles of ALARA. CT DOSE: 291.92 mGy.cm FINDINGS: Lung bases: The heart is normal mildly enlarged and without pericardial effusion. The lung bases are clear. Liver: The contrast-enhanced liver is normal in size, contour, and attenuation. There is no intrahepatic biliary ductal dilatation. The hepatic veins and portal veins are patent. Gallbladder: There are calcified gallstones with no CT evidence of acute cholecystitis. Spleen: Normal in size and attenuation. A 3.7 x 3.0 cm heterogeneously enhancing splenic lesion seen on image #57 is unchanged. Pancreas: Unremarkable. Adrenal glands: Unremarkable. Kidneys: The contrast enhanced kidneys are normal in size and without hydronephrosis. The kidneys enhance symmetrically. Abdominal vasculature: The abdominal aorta is normal in course and caliber noting mild atherosclerotic calcification. Bowel: There is focal twisting of the sigmoid colon in the pelvis seen on axial image #262. The upstream colon is dilated measuring up to 7.5 cm in diameter and findings are consistent with a persistent sigmoid volvulus. The small bowel loops are mildly distended and fluid-filled. There is no pneumatosis intestinalis or portal venous gas. The appendix is not visualized Peritoneum: There is no intraperitoneal free air or abdominal ascites. Lymphadenopathy: None. Pelvic viscera: The the bladder is distended comment wall appears mildly thickened/trabeculated suggesting chronic outlet obstruction. The prostate gland is enlarged and heterogeneous. Skeletal structures: No lytic or blastic lesions are seen. IMPRESSION: 1. Recurrent versus persistent sigmoid volvulus with gaseous distention of the upstream colon. 2. The small bowel loops are mildly distended and fluid-filled. 3. No intraperitoneal free air is identified and there is no abdominal ascites. 4. A 3.7 cm heterogeneously enhancing splenic lesion is unchanged and remains pathologically indeterminant. A neoplasm would be impossible to exclude. 5. Cholelithiasis. 6. Additional findings as above. KUB CLINICAL HISTORY: Placement of rectal tube COMPARISON STUDY: CT of the abdomen and pelvis performed earlier today. FINDINGS: Interval placement of a rectal tube is noted. The portion of the tube is coiled within the sigmoid colon. The tip of the tube is within the distal descending colon. Gaseous distention of the colon has improved. There is contrast within the bladder from recent contrast-enhanced CT. IMPRESSION: 1. Interval placement of a rectal tube. Tip within the distal descending colon. Portion of the tube coiled within the sigmoid colon. 2. Interval decrease in gaseous distention of the colon.
--- NOTE | 2022-01-01 16:51 | Hospitalist Progress Note ---
Date of Service January 01, 2022 Assessment & Plan (1) Sigmoid volvulus: Plan: Mr. Del Cid is a 61 yo male who was admitted for recurrent sigmoid volvulus. - CT scan on admission showing sigmoid volvulus. Images have been pushed through PACS system - GI consult placed --> status post decompressive colonoscopy, with rectal tube placement - given 3rd recurrence since 09/2021, patient latoya seeks definitive management (ie subtotal colectomy). He follows with [facility] colorectal (Dr. Celis) - General Surgery was consulted --> [facility] was contacted regarding possible transfer, however subtotal colectomy is not emergent, and scheduling elective procedure was ultimately recommended - patient has telehealth visit with Dr. Hernandez scheduled for 01/04/22. - started on clear liquid diet --> advance as tolerated. Plan to remove rectal tube on 01/03/22 and then d/c home (2) Hypokalemia: Plan: - K at 3.4 today - IV replacement ordered - repeat BMP in AM (3) Irritable bowel syndrome with constipation: Plan: - continue home dose miralax and linzess Diet: Clear liquid, advance as tolerated Dispo: Med/Surg Dvt ppx: Lovenox Code: Full Admission and Anticipated Discharge Date Admission Date: January 01, 2022 Supervising Physician Co-Signing Physician Notes Patient seen and examined with PGY-3 Dr. Hidalgo. Agree with history, exam findings, assessment and plan of care as outlined. In brief, Mr. Del Cid is a 61 year old male with history of sigmoid volvulus x 2 prior episodes admitted with a third episode of volvulus. His prior episode of volvulus was actually just last week. Seen after colonoscopy and rectal tube placement. Abdominal distention is improve since then. Abdomen is soft, non-tender. + bowel sounds. 1. Sigmoid volvulus. s/p decompressive colonoscopy with rectal tube placement. Resident and Dr. Cameron discussed case with [place] colorectal surgery. They are not able to accommodate non-urgent/emergency procedures or transfers at this time. Plan is to keep rectal tube in until Tuesday while advancing diet. Plan to d/c rectal tube on Tuesday. Keep apt with CRS on Tuesday. 2. Irritable bowel syndrome, constipation. Continue home MiraLAX and linzess. Dispo: pending clinical improvement. Subjective patient had no abdominal pain after colonoscopy, eager to advance diet. He expresses desire to have definitive management (surgery at [facility]) as soon as can be possibly arranged. Review of Systems Review of Systems: All systems reviewed & are unremarkable except as noted in HPI & below Physical Exam Constitutional: WD/WN, vitals as above cooperative and comfortable; no acute distress Eyes: + anicteric sclerae ENMT: external ear and nose normal, oropharynx normal Neck: trachea midline Respiratory: normal respiratory effort, lungs clear to auscultation Cardiovascular: RRR, no murmur, no edema Heart Sounds: normal S1 and normal S2 Gastrointestinal (Abdomen): normal bowel sounds, soft, nontender, no hepatosplenomegaly Musculoskeletal: Head/Neck/Chest: normocephalic and head atraumatic Skin: no rashes, warm and dry Neurologic: moves all extremities Psychiatric: A+Ox3, euthymic affect Results & Data Results & Data ([facility]) Vital Signs (Past 12 Hours) Vital Signs Temp Pulse Resp BP Pulse Ox 01/01/22 16:01 36.4 C L 45 L 16 112/62 99 01/01/22 11:24 50 L 18 119/71 99 01/01/22 10:44 49 L 18 107/70 99 01/01/22 10:27 47 L 18 107/56 L 99 01/01/22 10:12 52 L 18 83/43 L 96 01/01/22 09:25 36.5 C 51 L 18 125/78 99 01/01/22 08:49 37.1 C 52 L 18 123/73 98 01/01/22 06:00 58 L 18 98 Resident Activity Tracking Resident Involvement: Resident Care Provided Care Provided: Adult Hospital Medicine
[2022-01-01] MEDS ORDERED: MELATONIN 3 MG TAB PO PRN (17:00)
--- NOTE | 2022-01-02 06:43 | Hospitalist Progress Note ---
Date of Service January 02, 2022 Assessment & Plan (1) Sigmoid volvulus: Plan: Patient is a 61 year old male admitted for recurrent sigmoid volvulus, since resolved s/p decompressive colonoscopy and rectal tube placement. Sigmoid Volvulus -CT scan on admission notable for sigmoid volvulus -GI consulted -- patient now post decompressive colonoscopy and rectal tube placement -Planning for removal of rectal tube in the AM prior to discharge -Diet advanced from Clears to Full liquid diet -Will keep patient on Full Liquid diet even post discharge until seen by his Colorectal doctor at [facility] Dr. Hernandez on 01/04/22 in case definitive treatment via a subtotal colectomy can be scheduled sooner. Hypokalemia -Resolved -K at 3.9 this AM IBS w/ Constipation -Continue home doses of Linzess and Miralax Dispo: Med/Surg with plans for discharge home in the AM FEN: Full liquid diet DVT: Lovenox Code: Ful (2) Hypokalemia: (3) Irritable bowel syndrome with constipation: Admission and Anticipated Discharge Date Admission Date: January 01, 2022 Supervising Physician Co-Signing Physician Notes Patient seen and examined with PGY-3 Dr. Jennings. Agree with history, exam findings, assessment and plan of care as outlined. In brief, Mr. Del Cid is a 61 year old male with history of sigmoid volvulus x 2 prior episodes admitted with a third episode of volvulus. His prior episode of volvulus was actually just last week. No abdominal pain, nausea, vomiting. Did have some liquid leaking from the rectal tube earlier today. 1. Sigmoid volvulus. s/p decompressive colonoscopy with rectal tube placement. Resident and Dr. Cameron discussed case with [place] colorectal surgery. They are not able to accommodate non-urgent/emergency procedures or transfers at this time. Plan is to keep rectal tube in until Tuesday while advancing dietwould plan to keep on full liquids for now until he can see CRS on Tuesday. If intervention will not happen this upcoming week, he can resume his low fiber diet. Plan to d/c rectal tube on Tuesday. 2. Irritable bowel syndrome, constipation. Continue home MiraLAX and linzess. Dispo: likely dc tomorrow after rectal tube comes out. Subjective Patient evaluated at the bedside. Feeling well this morning over all and tolerating clear liquid diet. Is interested in advancement of the diet. Notes that he had some leakage around the rectal tube, but had seen GI since then and reassured of the benign nature of his symptoms. Otherwise denies fever, chills, SOB, chest pain, abdominal pain. Review of Systems Review of Systems: All systems reviewed & are unremarkable except as noted in Subjective Physical Exam Constitutional: WD/WN, vitals as above Respiratory: normal respiratory effort, lungs clear to auscultation Cardiovascular: RRR, no murmur, no edema Gastrointestinal (Abdomen): normal bowel sounds, soft, nontender, no hepatosplenomegaly Results & Data Results & Data ([facility]) Vital Signs (Past 12 Hours) Vital Signs Temp Pulse Resp BP Pulse Ox 01/01/22 22:50 36.5 C 43 L 16 118/65 97 Resident Activity Tracking Resident Involvement: Resident Care Provided Care Provided: Adult Hospital Medicine
[2022-01-02 06:44] LABS: BUN Creatinine Ratio 9.9 (10-20); Calcium 8.1 mg/dl (8.5-10.1); Creatinine Clr Calc Pharmacy 100.3 ml/min; Est GFR (African American) 118.2 ml/min; Potassium 4.1 mmol/L (3.5-5.1)
[2022-01-02] MEDS: LINACLOTIDE 145 MCG CAPSULE PO SCH (08:12)
[2022-01-02] MEDS: ENOXAPARIN INJ 40 MG/0.4 ML SYR SQ SCH (08:20)
[2022-01-02] MEDS: POLYETHYLENE (MIRALAX) 17 GM PACK PO SCH (08:20)
--- NOTE | 2022-01-02 13:37 | Surgery Progress Note ---
Date of Service January 02, 2022 Assessment & Plan (1) Sigmoid volvulus: Plan: pt is a 61 year-old male who was admitted to hospital for recurrent sigmoid volvulus, pt is S/P colonoscopy decompressed sigmoid colon, with rectal tube, IMP: sigmoid volvulus Plan, recommend to transfer to the [facility] for colorectal surgeon consult for resection sigmoid colon, I talked to chronometer assembler colorectal surgeon from [facility], the surgeon recommend follow up DR Ulises Hernandez on Tuesday, clear diet, F/U Dr. Hernandez on 01/02/2022 1:33PM, Dr. Cameron doing fine, no abdominal pain, tolerated clear diet, advance diet, D/C home tomorrow, F/U Dr. Hernandez on Tuesday, pt agrees with the plan, I answered all questions, sign off today, please call with questions, Admission and Anticipated Discharge Date Admission Date: January 01, 2022 Supervising Physician Co-Signing Physician Notes Patient seen and examined with PGY-3 Dr. Hidalgo. Agree with history, exam findings, assessment and plan of care as outlined. In brief, Mr. Del Cid is a 61 year old male with history of sigmoid volvulus x 2 prior episodes admitted with a third episode of volvulus. His prior episode of volvulus was actually just last week. Seen after colonoscopy and rectal tube placement. Abdominal distention is improve since then. Abdomen is soft, non-tender. + bowel sounds. 1. Sigmoid volvulus. s/p decompressive colonoscopy with rectal tube placement. Resident and Dr. Cameron discussed case with [place] colorectal surgery. They are not able to accommodate non-urgent/emergency procedures or transfers at this time. Plan is to keep rectal tube in until Tuesday while advancing diet. Plan to d/c rectal tube on Tuesday. Keep apt with CRS on Tuesday. 2. Irritable bowel syndrome, constipation. Continue home MiraLAX and linzess. Dispo: pending clinical improvement. Subjective patient had no abdominal pain after colonoscopy, eager to advance diet. He expresses desire to have definitive management (surgery at [facility]) as soon as can be possibly arranged. 01/02/2022 Dr. Cameron doing fine, no abdominal pain after colonoscopy, tolerated clear diet, no fever, Review of Systems Constitutional: as per Subjective / HPI Eyes: as per Subjective / HPI Respiratory: as per Subjective / HPI Cardiovascular: as per Subjective / HPI Gastrointestinal: IBS, constipation, sigmoid volvulus Genitourinary: + as per Subjective / HPI Musculoskeletal: as per Subjective / HPI Neurologic: as per Subjective / HPI Psychiatric: as per Subjective / HPI Endocrine: as per Subjective / HPI Hematologic / Lymphatic: as per Subjective / HPI Physical Exam Constitutional: WD/WN, vitals as above Eyes: PERRL, conjunctivae normal, anicteric sclerae Neck: trachea midline, no thyromegaly Respiratory: normal respiratory effort, lungs clear to auscultation Cardiovascular: RRR, no murmur, no edema Musculoskeletal: no cyanosis or clubbing, extremities motor strength 5/5 Neurologic: patellar DTR's 2+ bilat, sensation intact Psychiatric: A+Ox3, euthymic affect Results & Data ([facility]) Vital Signs (Past 12 Hours) Vital Signs Temp Pulse Resp BP Pulse Ox 01/02/22 07:58 36.4 C L 43 L 16 102/60 98 Laboratory Results Abnormal lab results 01/02/22 Range/Units 05:52 Chloride 109 H (98-107) mmol/L BUN/Creatinine Ratio 9.9 L (10-20) Calcium 8.1 L (8.5-10.1) mg/dl
--- NOTE | 2022-01-02 21:17 | Progress Notes ---
GASTROENTEROLOGY PROGRESS NOTE DATE OF SERVICE: 01/02/2022 RACE: . HISTORY OF PRESENT ILLNESS: I had the pleasure of seeing Gerald Del Cid today at his bedside zachary ariza a colonic decompression yesterday secondary to recurrent sigmoid volvulus. He states he is feel ing much better today. He denies any complaints of abdominal pain, fevers, chills, nausea, vomiting, hematemesis, melena or hematochezia at this time. He is tolerating minimal p.o. intake, though is n ot advanced beyond liquids. He states that he has not had a bowel movement during this hospitalizati on and denies any pain from rectal tube placement. REVIEW OF SYSTEMS: Negative x12 system review other than pertinent positives listed in the HPI. PHYSICAL EXAMINATION: VITAL SIGNS: Temperature 36.4, pulse 43, respirations 16, blood pressure 102/60, pulse ox 98% on gallo m air. GENERAL: Awake, cooperative, no acute distress. CHEST: Clear to auscultation bilaterally. CARDIOVASCULAR: Regular rate and rhythm. ABDOMEN: Soft, nontender, nondistended, positive bowel sounds. EXTREMITIES: No clubbing, cyanosis or edema. LABORATORY STUDIES: From today show a sodium of 137, potassium 4.1, chloride 109, bicarbonate 23, BU N 7, creatinine 0.71. IMPRESSION: A 61-year-old male with recurrent sigmoid volvulus, status post colonic decomp ression with rectal tube placement. PLAN: Definitively, the patient will need a colon resection secondary to recurrent episodes of sigmo id volvulus as he has had 2 episodes within the past 10 days. Clearly, he has failed conservative ma nagement for this and does have an appointment with Dr. Hernandez of [facility] on Tuesday. The plan will be to remove the patient's rectal tube tomorrow if he has no issues over night in preparation for evaluation by Dr. Hernandez on Tuesday. The patient does understand that he do es need this surgery to prevent recurrence and is anxious to get this scheduled. Attempts were made to transfer the patient to [facility] due to his recurrent disease, though they were unab le to provide any transfer at this time as they felt that the issue was not urgent and that it can be scheduled as an elective procedure. I informed him that in the future if in between the time that h manuela is discharged and has his surgery that he develops symptoms such as what brought him to the hospita l yesterday, he should contact our office immediately or present to the ER where he will need further evaluation and colonic decompression for recurrent sigmoid volvulus until the time that definitive t herapy is performed. I did also inform him that there is risk with a recurrence of sigmoid volvulus as he has been fortunate at this time that he has had no ischemic damage to his colon. If that would occur, clearly it would be associated with an emergent need for resection, and he does understand thi s. Once again, thanks for allowing me to participate in the care of this patient. If you have any furth er questions, please do not hesitate in contacting me. Care time spent on this patient was greater th an 15 minutes with chart review, direct patient interaction and evaluation as well as medical managem ent decisions. Job ID: [id number]
[2022-01-03] MEDS: LINACLOTIDE 145 MCG CAPSULE PO SCH (07:08)
--- NOTE | 2022-01-03 07:28 | Discharge Summary ---
Date of Service January 03, 2022 Admission HPI Per Admitting Provider Gerald Del Cid is a 61yo male with history of IBS with Constipation, prior sigmoid volvulus. Patient had a decompressive colonoscopy performed on 09/26/21. Returned to the ER on 12/23/20 with similar complaints and found to again have a sigmoid volvulus. He had another decompressive colonoscopy performed by Dr. Yee on 12/24/21. Llinzess was increased to 290mcg daily and Miralax 17gm daily was added. Patient follows with Dr. Hernandez of Colorectal surgery. Patient has been following a low fiber diet and taking his medications as prescribed. Yesterday morning he developed the feeling of constipation with some cramping lower abdominal pain and bloating which continued throughout the day. This felt similar to his 2nd sigmoid volvulus. No BM, passing a very small amount of gas. Mild nausea and lower abdominal pressure. Otherwise no complaints. ER Course: NSS Admission Exam Per Admitting Provider General: patient resting comfortably, NAD, non-toxic in appearance, AA&O x 4 Skin: warm, dry, intact, no rashes or lesions HEENT: NC/AT, PERRL, EOMI, anicteric sclera, conjunctiva without injection, external ear normal to inspection and nontender, nares patent, moist mucus membranes, dentition intact, no oropharyngeal lesions, neck supple, trachea midline, no LAD, no thyromegaly, no JVD Heart: +S1/S2, regular, bradycardic, no m/r/g Lungs: equal air entry bilaterally, no rales/rhonchi/wheezes Abd: +BS diminished, soft, NT/ND, no masses/organomegaly/ascites Ext: warm, 2+ pulses in UE/LE bilaterally, no clubbing/cyanosis or edema Neuro: nonfocal, patient AA&O x 4, speech intact, no facial droop, moving all extremities on command with equal strength 5/5 Principal Diagnosis Sigmoid Volvulus Discharge Exam Constitutional WD/WN, vitals as above Respiratory normal respiratory effort, lungs clear to auscultation Cardiovascular RRR, no murmur, no edema Gastrointestinal (Abdomen) normal bowel sounds, soft, nontender, no hepatosplenomegaly Discharge Data Allergies Allergy/AdvReac Type Severity Reaction Status Date / Time No Known Allergies Allergy Verified 01/01/22 09:21 Consultations 01/01/22 05:29 ED Decision to Admit Stat 01/01/22 05:56 Consult Gastroenterology Routine 01/01/22 07:47 Consult General Surgery Routine Procedures Performed Operation Date: 01/01/22 16:45 Actual Procedures p Colonoscopy with Decompression Tube Bhaskar Jeff Jarad Case, DO Ordered Studies 01/01/22 00:51 CT abd pelvis IV con only Urgent Hospital Course (1) Sigmoid volvulus: Patient is a 61 year old male admitted for recurrent sigmoid volvulus, since resolved s/p decompressive colonoscopy and rectal tube placement. Sigmoid Volvulus -CT scan on admission notable for sigmoid volvulus -GI consulted -- patient now post decompressive colonoscopy and rectal tube placement -- since removed prior to discharge -Diet advanced from Clears to Full liquid diet -Will keep patient on Full Liquid diet even post discharge until seen [place] his Colorectal [place] [facility] on 01/04[place]22 in case definitive treatment via a subtotal colectomy can be scheduled sooner. Hypokalemia -Resolved IBS w/ Constipation -Continued home doses of Linzess and Miralax (2) Hypokalemia: (3) Irritable bowel syndrome with constipation: Total Time Total Time Spent Total Time Spent (In Minutes): see attending attestation Discharge Plan Discharge Items Patient Disposition: Home - Self-Care Reason For Visit: SIGMOID VOLVULUS Discharge Diagnosis: Sigmoid Volvulus Activity: Per Instructions section Non-emergency contact: Sql Application Developer Call non-emergency contact if: you have any medication questions and your symptoms worsen Follow-up/Referrals: Ne Salas [Primary Care Provider] - Diet: Full liquid Addtl Attending Provider Instructions: Mr. Del Cid, It was our pleasure caring for you at [facility] form 01/01/22 - 01/03/22 for your sigmoid volvulus. While at the hospital you had underwent a Colonoscopy decompression for your sigmoid volvulus and had a rectal tube placed afterwards to allow for continued decompression, reduction in pain and symptoms. Your diet has been slowly advanced to Full Liquids which we would like you continue until seen by your Colorectal Surgeon Dr. Hernandez tomorrow 01/04/22. Your rectal tube was removed prior to your discharge to good effect. If your pain returns please return to the ED for reevaluation as there is a possibility for a sigmoid volvulus to occur again. Otherwise, please take your home medications as prescribed. Pending Studies at Discharge: No Stand-Alone Forms: My [facility], Smoking Cessation Medications and DC Order Prescriptions: Continued cholecalciferol (vitamin D3) 25 mcg (1,000 unit) Tablet 25 mcg PO DAILY RF: 0 polyethylene glycol 3350 [Miralax] 17 gram Powder In Packet 17 g PO DAILY Qty: 30 RF: 0 Linzess 290 mcg capsule 290 mcg PO DAILY Qty: 30 RF: 5 Discharge Orders: Discharge Order (Routine); Ordered 01/03/22 Ordered By: Jevon Keene/Other Patient Handouts: Hypokalemia Dc, Full Liquid Diet Dc Admission Data Admit Date/Time: 01/01/22 05:56 Attending Provider: Zaid Redmond Admit Provider: Charmaine Rosas Primary Care Provider: Ne Salas Other Providers: Hazel Greer ; Charmaine Rosas ; Immanuel Cameron Other Interventions: Discharge Summary Assessment (RN) Last Done: 01/03/22 10:57 Supervising Physician Co-Signing Physician Notes Patient seen and examined with PGY-3 Dr. Jennings. Agree with history, exam findings, assessment and plan of care as outlined. In brief, Mr. Del Cid is a 61 year old male with history of sigmoid volvulus x 2 prior episodes admitted with a third episode of volvulus. His prior episode of volvulus was actually just last week. No abdominal pain, nausea, vomiting. Feels well. 1. Sigmoid volvulus. s/p decompressive colonoscopy with rectal tube placement. Rectal tube removed today. Continue with full liquid diet until seen by CRS tomorrow via zoom. 2. Irritable bowel syndrome, constipation. Continue home MiraLAX and linzess. Dispo: discharge home today. I personally spent 15 minutes discharge planning for patient today. Resident Activity Tracking Resident Involvement: Resident Care Provided Care Provided: Adult Hospital Medicine
[2022-01-03] MEDS: ENOXAPARIN INJ 40 MG/0.4 ML SYR SQ SCH (10:09)
[2022-01-03] MEDS: POLYETHYLENE (MIRALAX) 17 GM PACK PO SCH (10:10)
--- NOTE | 2022-01-03 10:12 | Gastroenterology Progress Note ---
Date of Service January 03, 2022 Assessment & Plan (1) Sigmoid volvulus: Plan: Rectal tube removed today Continue full liquid diet until he meets with Dr. Hernandez of Colorectal Surgery tomorrow Continue supportive care and current therapy Admission and Anticipated Discharge Date Admission Date: January 01, 2022 Subjective Feeling well this AM. Tolerating full liquid diet. Did have a liquid BM this AM and Rectal tube, "nearly fell out." Rectal tube was removed by nursing staff following his BM, after discussion with me. No complaints at present. Review of Systems Constitutional: as per Subjective / HPI Eyes: as per Subjective / HPI Ear, Nose, Mouth, Throat: as per Subjective / HPI Respiratory: as per Subjective / HPI Cardiovascular: as per Subjective / HPI Gastrointestinal: as per Subjective / HPI Musculoskeletal: as per Subjective / HPI Integumentary: as per Subjective / HPI Neurologic: as per Subjective / HPI Psychiatric: as per Subjective / HPI Endocrine: as per Subjective / HPI Hematologic / Lymphatic: as per Subjective / HPI Allergy / Immunological: as per Subjective / HPI Physical Exam Constitutional: WD/WN, vitals as above Respiratory: normal respiratory effort, lungs clear to auscultation Cardiovascular: RRR, no murmur, no edema Gastrointestinal (Abdomen): normal bowel sounds, soft, nontender, no hepatos plenomegaly Results & Data Results & Data ([facility]) Vital Signs (Past 12 Hours) Vital Signs Temp Pulse Resp BP Pulse Ox 01/03/22 07:46 36.4 C L 46 L 16 127/79 97 01/02/22 23:36 36.5 C 47 L 16 108/61 98 PG Care Time/CCT Total # of Minutes Spent Total Time Spent with Patient: Total time spent is greater than 50% in coordination of care (as documented) at patient's floor/unit and/or counseling patient: Coding Level of Care Code 83449 Subseq Hosp Care Lvl 2 Diagnoses Sigmoid volvulus K56.2
== END 2022-01-03 14:23 | disposition home or self-care (01) | DRG 390 ==
LOC: ED 00:16 → SUATTDRO 05:56 → EDINP 05:56 → 3E 15:20